=== PATIENT | male | born 1970 | race Two or more races ===

== ENCOUNTER 2018-05-19 12:02 | Inpatient (IN) | payer OTHER ==
[2018-05-19 15:01] VITALS: BMI 18.2
--- NOTE | 2018-05-19 16:49 | HP ---
COWS - Scale Bone or Joint Aches: 2= Severe Diffuse Aches CIWA Score - CIWA Score Nausea/Vomitin-Mild Nausea/No Vomiting Muscle Tremors: None Anxiety: 4-Mod. Anxious/Guarded Agitation: 1-Slight > Activity Paroxysmal Sweats: No Perspiration Orientation: 0-Oriented Tacttile Disturbances: 0-None Auditory Disturbances: 0-None Visual Disturbances: 0-None Headache: 0-None Present CIWA-Ar Total Score: 6 Admission ROS S - HPI Allergies/Adverse Reactions: Allergies Allergy/AdvReac Type Severity Reaction Status Date / Time No Known Allergies Allergy Verified 05/19/18 15:53 History of Present Illness: pt here requesting detox from etoh use reports 2 pints/day , latest use Tuesday , states woke up today, denies symptoms at this time . Pt changing story , after starting interview , upon ciwa evaluation scores zero denies all symptoms. Then states that he gets tremors and anxiety if he does not drink and requests to stay in detox . h/o seizure 6 mo ago . Reports etoh use since age 12 , 2 pints/day x 1 month , reports starts drinking around 6 p.m. Wt loss- 30 lbs in 1 year , not eating , usually drinking alcohol and using drugs " I eat out of the garbage can " . Previously at this facility 2 years ago , planning to go to long-term . cocaine - 100 $/day heroin - 10 bags/day ivdu in neck , latest use this morning MMTP - VIP x 1 year , daily dose 100 mg , latest dose today . tobacco : 1-2 cigarettes /day pmhx : hiv + dx 1988 (ST) , hep C ( IVDU ) - non compliant w/ meds , latest visit > 1 yr ago . pshx : appy psych : denies homeless , unemployed legal : denies - Ebola screening Have you traveled outside of the country in the last 21 days: No Have you had contact with anyone from an Ebola affected area: No Have you been sick,other than usual withdrawal symptoms: No Do you have a fever: No - Review of Systems Constitutional: No Symptoms Reported EENT: reports: Tearing, Other (reading glasses) Respiratory: reports: Cough, Other (claims he was coughing green stuff) Cardiac: reports: No Symptoms Reported GI: reports: Nausea : reports: Dysuria Musculoskeletal: reports: Back Pain Integumentary: reports: Other (traCK MURDOCK) Neuro: reports: Seizure Endocrine: reports: Other (borderline DM per pt) Hematology: reports: No Symptoms Reported Psychiatric: reports: Orientated x3, Agitated, Anxious Patient History - Patient Medical History Hx Anemia: No Hx Asthma: No Hx Chronic Obstructive Pulmonary Disease (COPD): No Hx Cardiac Disorders: No Hx Congestive Heart Failure: No Hx Hypertension: No Hx Hypercholesterolemia: No Hx Pacemaker: No HX Cerebrovascular Accident: No Hx Seizures: No Hx Dementia: No Hx Diabetes: No Hx Gastrointestinal Disorders: No Hx Liver Disease: No Hx Genitourinary Disorders: No Hx Sexually Transmitted Disorders: No Hx Renal Disease (ESRD): No Hx Thyroid Disease: No Hx Human Immunodeficiency Virus (HIV): Yes (1988 currently no med) Hx Hepatitis C: Yes Hx Depression: No Hx Suicide Attempt: No Hx Bipolar Disorder: No Hx Schizophrenia: No - Patient Surgical History Past Surgical History: Yes Hx Neurologic Surgery: No Hx Cataract Extraction: No Hx Cardiac Surgery: No Hx Lung Surgery: No Hx Breast Surgery: No Hx Breast Biopsy: No Hx Abdominal Surgery: No Hx Appendectomy: Yes (at age 7 yrs old.) Hx Cholecystectomy: No Hx Genitourinary Surgery: No Hx Section: No Hx Orthopedic Surgery: No Anesthesia Reaction: No - PPD History Previous Implant?: Yes Documented Results: Negative w/proof Implanted On Prior R Admission?: Yes Date: 03/07/16 Results: 0 mm - Smoking Cessation Smoking history: Former smoker Have you smoked in the past 12 months: Yes Aproximately how many cigarettes per day: 20 If you are a former smoker, when did you quit?: 6 mos. ago Cigars Per Day: 0 Hx Chewing Tobacco Use: No Initiated information on smoking cessation: No - Substances Abused Cocaine Route: Injection Frequency: Daily Amount used: $100 Age of first use: 12 Date of Last Use: 05/17/18 Heroin Route: Injection Frequency: Daily Amount used: 3-4 bags Age of first use: 13 Date of Last Use: 05/17/18 Alcohol-vodka Route: Oral Frequency: Daily Amount used: 2 pts. Age of first use: 12 Date of Last Use: 05/17/18 Family Disease History - Family Disease History Family Disease History: Diabetes: Grandparent, Heart Disease: Grandparent Admission Physical Exam BHS - Vital Signs Vital Signs: Vital Signs - 24 hr 05/19/18 14:57 Temperature 97 F L Pulse Rate 56 L Respiratory 18 Rate Blood Pressure 136/83 - Physical General Appearance: Yes: Anxious HEENTM: Yes: Hearing grossly Normal, Normal Voice, Pharynx Normal Respiratory: Yes: Chest Non-Tender, Lungs Clear, Normal Breath Sounds Neck: Yes: No masses,lesions,Nodules, Trachea in good position Breast: Yes: Breast Exam Deferred Cardiology: Yes: Regular Rhythm, Regular Rate, Bradycardia Abdominal: Yes: Normal Bowel Sounds, Flat Genitourinary: Yes: Dysuria Back: Yes: Normal Inspection Musculoskeletal: Yes: full range of Motion, Gait Steady Extremities: Yes: Normal Capillary Refill, Normal Inspection Neurological: Yes: Fully Oriented Integumentary: Yes: Dry, Warm, Track Murdock (dorsum of hands , neck , sahil calves) - Diagnostic (1) Alcohol dependence Current Visit: No Status: Chronic Qualifiers: Substance use status: uncomplicated Qualified Code(s): F10.20 - Alcohol dependence, uncomplicated (2) Cocaine dependence Current Visit: No Status: Chronic Qualifiers: Substance use status: uncomplicated Qualified Code(s): F14.20 - Cocaine dependence, uncomplicated (3) HIV (human immunodeficiency virus infection) Current Visit: No Status: Chronic Comment: patient was taking complara "not working" had genotype, follow up with infectious disease physician, currently not on any medication (4) Hepatitis C Current Visit: No Status: Chronic Qualifiers: Viral hepatitis chronicity: chronic Hepatic coma status: without hepatic coma Qualified Code(s): B18.2 - Chronic viral hepatitis C (5) Methadone maintenance therapy patient Current Visit: No Status: Chronic (6) Weight loss, non-intentional Current Visit: No Status: Chronic Comment: ensure BHS Breath Alcohol Content Breath Alcohol Content: 0 Urine Drug Screen - Results Drug Screen Negative: No Urine Drug Screen Results: CHANCE-Cocaine, OPI-Opiates, MTD-Methadone
[2018-05-19] MEDS ORDERED: MAGNESIUM CITRATE 300 ML BOTTLE PO PRN (16:55)
[2018-05-19] MEDS ORDERED: MAG HYDROX/AL HYDROX/SIMETH 30 ML UNIT-DOSE CUP PO PRN (16:55)
[2018-05-19] MEDS ORDERED: MAGNESIUM HYDROX 2400MG/30ML ORAL SUSPENSION 30 ML CUP PO PRN (16:55)
[2018-05-19] MEDS ORDERED: guaiFENesin/D-METHORPHAN HB 10 ML UNIT-DOSE CUPS PO PRN (16:55)
[2018-05-19] MEDS ORDERED: IBUPROFEN 400 MG TABLET (FP) PO PRN (16:55)
[2018-05-19] MEDS ORDERED: P-EPHED 60MG/TRIPROLIDI 2.5MG TABLET PO PRN (16:55)
[2018-05-19] MEDS ORDERED: MENTHOL/PHENOL 1 EACH UD MM PRN (16:55)
[2018-05-19] MEDS ORDERED: ACETAMINOPHEN 325 MG TABLET (FP) PO PRN (16:55)
[2018-05-19] MEDS: chlordiazePOXIDE HCL 10 MG CAPSULE PO PRN (17:50)
[2018-05-19] MEDS ORDERED: MELATONIN 5 MG TABLETS PO PRN (22:00)
[2018-05-19] MEDS: chlordiazePOXIDE HCL 25 MG CAPSULE PO SCH (22:24)
[2018-05-19] MEDS: THIAMINE HCL 100 MG TABLET (FP) PO SCH (22:24)
[2018-05-20] MEDS: chlordiazePOXIDE HCL 25 MG CAPSULE PO SCH ×3 (05:47→17:29)
[2018-05-20] MEDS ORDERED: METHADONE HCL 10 MG TABLET ONE (07:09)
[2018-05-20] MEDS ORDERED: METHADONE HCL 40 MG DISPERSABLE TABLET ONE (07:10)
[2018-05-20] MEDS ORDERED: METHADONE HCL 10 MG TABLET PO SCH (07:15)
[2018-05-20] MEDS: METHADONE 80 MG, METHADONE 20 MG PO SCH (07:20)
[2018-05-20] MEDS: PRENATAL VITAMINS W/ FOLIC ACID TABLET (FP) PO SCH (10:01)
[2018-05-20] MEDS ORDERED: ONDANSETRON *ODT* 4 MG TABLET SL PRN (10:18)
[2018-05-20] MEDS ORDERED: COLLOIDAL OATMEAL 1 BAR EACH TP PRN (10:18)
[2018-05-20 10:29] LABS: HEMATOCRIT 38.6 % (35.4-49); HEMOGLOBIN 12.1 GM/dL (11.7-16.9); MCH 27.7 pg (25.7-33.7); MCHC 31.3 g/dl (32.0-35.9); MEAN CELL VOLUME 88.4 fl (80-96); MEAN PLT VOLUME 9.4 fl (7.5-11.1); PLATELET COUNT 170 K/MM3 (134-434); RBC 4.37 M/mm3 (4.00-5.60); RDW 15.6 % (11.9-15.9); WHITE BLOOD COUNT 3.1 K/mm3 (4.0-10.0)
[2018-05-20 10:43] LABS: ALBUMIN 2.7 g/dl (3.4-5.0); ALK PHOS 213 U/L (45-117); ANION GAP 4 MMOL/L (8-16); BILIRUBIN,TOTAL 0.3 mg/dL (0.2-1); BLOOD UREA NITROGEN 10 mg/dL (7-18); CALCIUM 8.9 mg/dL (8.5-10.1); CHLORIDE 106 mmol/L (98-107); CO2 32 mmol/L (21-32); CREATININE 0.7 mg/dL (0.55-1.3); GLUCOSE,RANDOM 63 mg/dL (74-106); POTASSIUM 4.1 mmol/L (3.5-5.1); SGOT/AST 84 U/L (15-37); SGPT/ALT 63 U/L (13-61); SODIUM 141 mmol/L (136-145); TOT PROT 7.3 g/dl (6.4-8.2)
[2018-05-20 12:58] LABS: URINE APPEARANCE TURBID; URINE BILIRUBIN NEGATIVE (<2.0 mg/dL); URINE COLOR YELLOW; URINE GLUCOSE (UA) NEGATIVE (NEGATIVE); URINE KETONE NEGATIVE (NEGATIVE); URINE LEUK ESTERASE TRACE (NEGATIVE); URINE NITRITE NEGATIVE (NEGATIVE); URINE PROTEIN 1+ (NEGATIVE)
[2018-05-20 13:15] LABS: URINE BACTERIA RARE /hpf (NONE SEEN); URINE MUCUS FEW; YEAST MODERATE
[2018-05-20] MEDS: chlordiazePOXIDE HCL 10 MG CAPSULE PO PRN (13:21)
--- NOTE | 2018-05-20 15:16 | PN ---
[facility] CIWA - CIWA Score Nausea/Vomitin-Int. Nausea w/Dry Heave Muscle Tremors: 2 Anxiety: 3 Agitation: 3 Paroxysmal Sweats: 1-Minimal Palms Moist Orientation: 0-Oriented Tacttile Disturbances: 2-Mild Itch/Numbness/Burn Auditory Disturbances: 0-None Visual Disturbances: 0-None Headache: 0-None Present CIWA-Ar Total Score: 15 S Progress Note (SOAP) Subjective: c/o of nausea and vomiting, dry itchy skin, interrupted sleep Objective: 05/20/18 15:14 Vital Signs Temperature 98.8 F 05/20/18 14:01 Pulse Rate 61 05/20/18 14:01 Respiratory Rate 18 05/20/18 14:01 Blood Pressure 114/73 05/20/18 14:01 O2 Sat by Pulse Oximetry (%) Laboratory Last Values WBC 3.1 K/mm3 (4.0-10.0) L 05/20/18 08:00 RBC 4.37 M/mm3 (4.00-5.60) 05/20/18 08:00 Hgb 12.1 GM/dL (11.7-16.9) 05/20/18 08:00 Hct 38.6 % (35.4-49) 05/20/18 08:00 MCV 88.4 fl (80-96) 05/20/18 08:00 MCH 27.7 pg (25.7-33.7) 05/20/18 08:00 MCHC 31.3 g/dl (32.0-35.9) L 05/20/18 08:00 RDW 15.6 % (11.9-15.9) 05/20/18 08:00 Plt Count 170 K/MM3 (134-434) 05/20/18 08:00 MPV 9.4 fl (7.5-11.1) 05/20/18 08:00 Sodium 141 mmol/L (136-145) 05/20/18 08:00 Potassium 4.1 mmol/L (3.5-5.1) 05/20/18 08:00 Chloride 106 mmol/L (98-107) 05/20/18 08:00 Carbon Dioxide 32 mmol/L (21-32) 05/20/18 08:00 Anion Gap 4 MMOL/L (8-16) L 05/20/18 08:00 BUN 10 mg/dL (7-18) 05/20/18 08:00 Creatinine 0.7 mg/dL (0.55-1.3) 05/20/18 08:00 Creat Clearance w eGFR > 60 (>60) 05/20/18 08:00 Random Glucose 63 mg/dL (74-106) L 05/20/18 08:00 Calcium 8.9 mg/dL (8.5-10.1) 05/20/18 08:00 Total Bilirubin 0.3 mg/dL (0.2-1) 05/20/18 08:00 AST 84 U/L (15-37) H 05/20/18 08:00 ALT 63 U/L (13-61) H 05/20/18 08:00 Alkaline Phosphatase 213 U/L (45-117) H 05/20/18 08:00 Total Protein 7.3 g/dl (6.4-8.2) 05/20/18 08:00 Albumin 2.7 g/dl (3.4-5.0) L 05/20/18 08:00 Urine Color Yellow 05/20/18 09:30 Urine Appearance Turbid 05/20/18 09:30 Urine pH 5.0 (5.0-8.0) 05/20/18 09:[address] 1.028 (1.010-1.035) 05/20/18 09:30 Urine Protein 1+ (NEGATIVE) H 05/20/18 09:30 Urine Glucose (UA) Negative (NEGATIVE) 05/20/18 09:30 Urine Ketones Negative (NEGATIVE) 05/20/18 09:30 Urine Blood Negative (NEGATIVE) 05/20/18 09:30 Urine Nitrite Negative (NEGATIVE) 05/20/18 09:30 Urine Bilirubin Negative (<2.0 mg/dL) 05/20/18 09:30 Urine Urobilinogen 2.0 mg/dL (0.2-1.0) 05/20/18 09:30 Ur Leukocyte Esterase Trace (NEGATIVE) 05/20/18 09:30 Urine WBC (Auto) 13 /hpf (3-5) 05/20/18 09:30 Urine RBC (Auto) 4 /hpf (0-3) 05/20/18 09:30 Urine Bacteria Rare /hpf (NONE SEEN) 05/20/18 09:30 Urine Mucus Few 05/20/18 09:30 Urine Yeast Moderate 05/20/18 09:30 RPR Titer Nonreactive (NONREACTIVE) 05/20/18 08:00 d/c acetaminophen Aox3 no distress anxious no adventitious breath sounds skin intact, dry full ROM ambulating in the unit increase PO fluids zofran PRN continue detox continue to monitor
[2018-05-20] MEDS: chlordiazePOXIDE 5 MG CAPSULE PO SCH (22:15)
[2018-05-20] MEDS: TOLNAFTATE 1% CREAM 15 GM TUBE TP SCH (22:15)
[2018-05-20] MEDS: THIAMINE HCL 100 MG TABLET (FP) PO SCH (22:15)
[2018-05-21] MEDS ORDERED: METHADONE HCL 40 MG DISPERSABLE TABLET ONE (04:59)
[2018-05-21] MEDS ORDERED: METHADONE HCL 10 MG TABLET ONE (04:59)
[2018-05-21] MEDS: chlordiazePOXIDE 5 MG CAPSULE PO SCH ×3 (05:35→17:30)
[2018-05-21] MEDS: METHADONE 80 MG, METHADONE 20 MG PO SCH (05:35)
[2018-05-21] MEDS: TOLNAFTATE 1% CREAM 15 GM TUBE TP SCH ×2 (10:09→22:54)
[2018-05-21] MEDS: PRENATAL VITAMINS W/ FOLIC ACID TABLET (FP) PO SCH (10:09)
--- NOTE | 2018-05-21 15:43 | PN ---
[facility] CIWA - CIWA Score Nausea/Vomitin Muscle Tremors: 3 Anxiety: 3 Agitation: 3 Paroxysmal Sweats: 3 Orientation: 0-Oriented Tacttile Disturbances: 0-None Auditory Disturbances: 0-None Visual Disturbances: 0-None Headache: 1-Very Mild CIWA-Ar Total Score: 15 [facility] Progress Note (SOAP) Subjective: Tremor, sweating, N/V, interrupted sleep Objective: 05/21/18 15:36 Last Vital Signs Temp Pulse Resp BP Pulse Ox 96.6 F L 63 18 122/71 05/21/18 14:12 05/21/18 14:12 05/21/18 14:12 05/21/18 14:12 Laboratory Tests 05/20/18 05/20/18 05/20/18 08:00 08:00 08:00 WBC 3.1 L RBC 4.37 Hgb 12.1 Hct 38.6 MCV 88.4 MCH 27.7 MCHC 31.3 L RDW 15.6 Plt Count 170 MPV 9.4 Sodium 141 Potassium 4.1 Chloride 106 Carbon Dioxide 32 Anion Gap 4 L BUN 10 Creatinine 0.7 Creat Clearance w eGFR > 60 Random Glucose 63 L Calcium 8.9 Total Bilirubin 0.3 AST 84 H ALT 63 H Alkaline Phosphatase 213 H Total Protein 7.3 Albumin 2.7 L Urine Color Urine Appearance Urine pH Ur Specific [place] Urine Protein Urine Glucose (UA) Urine Ketones Urine Blood Urine Nitrite Urine Bilirubin Urine Urobilinogen Ur Leukocyte Esterase Urine WBC (Auto) Urine RBC (Auto) Urine Bacteria Urine Mucus Urine Yeast RPR Titer Nonreactive 05/20/18 09:30 WBC RBC Hgb Hct MCV MCH MCHC RDW Plt Count MPV Sodium Potassium Chloride Carbon Dioxide Anion Gap BUN Creatinine Creat Clearance w eGFR Random Glucose Calcium Total Bilirubin AST ALT Alkaline Phosphatase Total Protein Albumin Urine Color Yellow Urine Appearance Turbid Urine pH 5.0 Ur Specific [place] 1.028 Urine Protein 1+ H Urine Glucose (UA) Negative Urine Ketones Negative Urine Blood Negative Urine Nitrite Negative Urine Bilirubin Negative Urine Urobilinogen 2.0 Ur Leukocyte Esterase Trace Urine WBC (Auto) 13 Urine RBC (Auto) 4 Urine Bacteria Rare Urine Mucus Few Urine Yeast Moderate RPR Titer Labs reviewed: UA abnormal plus yeast Assessment: 05/21/18 15:38 Withdrawal symptoms Noted with abnormal UA and yeast Plan: Continue detox Abnormal UA/Yeast: encouraged PO water intake, diflucan 150mg PO x 1 dose, repeat UA
[2018-05-21] MEDS ORDERED: FLUCONAZOLE 50 MG TABLET PO ONE (15:44)
[2018-05-21] MEDS ORDERED: FLUCONAZOLE 100 MG TABLET (UD) PO ONE (16:15)
[2018-05-21] MEDS: THIAMINE HCL 100 MG TABLET (FP) PO SCH (22:27)
[2018-05-21] MEDS: chlordiazePOXIDE HCL 10 MG CAPSULE PO SCH (22:27)
[2018-05-22] MEDS ORDERED: METHADONE HCL 10 MG TABLET ONE (04:43)
[2018-05-22] MEDS ORDERED: METHADONE HCL 40 MG DISPERSABLE TABLET ONE (04:44)
[2018-05-22] MEDS: chlordiazePOXIDE HCL 10 MG CAPSULE PO SCH ×3 (05:10→17:29)
[2018-05-22] MEDS: METHADONE 80 MG, METHADONE 20 MG PO SCH (05:10)
[2018-05-22] MEDS: PRENATAL VITAMINS W/ FOLIC ACID TABLET (FP) PO SCH (10:04)
[2018-05-22] MEDS: TOLNAFTATE 1% CREAM 15 GM TUBE TP SCH ×2 (10:04→22:00)
--- NOTE | 2018-05-22 10:19 | PN ---
BHS Progress Note (SOAP) Subjective: Sweating, chills, nausea, interrupted sleep. Patient for discharge today. As per patient, he is still having withdrawal symptoms and feels he would go out and use drugs if he is discharged today. Objective: 05/22/18 10:16 Last Vital Signs Temp Pulse Resp BP Pulse Ox 97.4 F L 73 16 122/79 05/22/18 09:09 05/22/18 09:09 05/22/18 09:09 05/22/18 09:09 Laboratory Tests 05/20/18 05/20/18 05/20/18 08:00 08:00 08:00 WBC 3.1 L RBC 4.37 Hgb 12.1 Hct 38.6 MCV 88.4 MCH 27.7 MCHC 31.3 L RDW 15.6 Plt Count 170 MPV 9.4 Sodium 141 Potassium 4.1 Chloride 106 Carbon Dioxide 32 Anion Gap 4 L BUN 10 Creatinine 0.7 Creat Clearance w eGFR > 60 Random Glucose 63 L Calcium 8.9 Total Bilirubin 0.3 AST 84 H ALT 63 H Alkaline Phosphatase 213 H Total Protein 7.3 Albumin 2.7 L Urine Color Urine Appearance Urine pH Ur Specific [place] Urine Protein Urine Glucose (UA) Urine Ketones Urine Blood Urine Nitrite Urine Bilirubin Urine Urobilinogen Ur Leukocyte Esterase Urine WBC (Auto) Urine RBC (Auto) Urine Bacteria Urine Mucus Urine Yeast RPR Titer Nonreactive 05/20/18 09:30 WBC RBC Hgb Hct MCV MCH MCHC RDW Plt Count MPV Sodium Potassium Chloride Carbon Dioxide Anion Gap BUN Creatinine Creat Clearance w eGFR Random Glucose Calcium Total Bilirubin AST ALT Alkaline Phosphatase Total Protein Albumin Urine Color Yellow Urine Appearance Turbid Urine pH 5.0 Ur Specific [place] 1.028 Urine Protein 1+ H Urine Glucose (UA) Negative Urine Ketones Negative Urine Blood Negative Urine Nitrite Negative Urine Bilirubin Negative Urine Urobilinogen 2.0 Ur Leukocyte Esterase Trace Urine WBC (Auto) 13 Urine RBC (Auto) 4 Urine Bacteria Rare Urine Mucus Few Urine Yeast Moderate RPR Titer Labs reviewed: abnormal UA (already ordered for repeat), treated with diflucan for yeast UTI Assessment: 05/22/18 10:16 Withdrawal symptoms Noted with abnormal UA Plan: Continue detox Abnormal UA: encouraged PO water intake, await repeated UA (patient encouraged to provide specimen) Discharge rescheduled for tomorrow
[2018-05-22 14:29] LABS: URINE APPEARANCE CLEAR; URINE BILIRUBIN NEGATIVE (<2.0 mg/dL); URINE COLOR STRAW; URINE GLUCOSE (UA) NEGATIVE (NEGATIVE); URINE KETONE NEGATIVE (NEGATIVE); URINE LEUK ESTERASE NEGATIVE (NEGATIVE); URINE NITRITE NEGATIVE (NEGATIVE); URINE PROTEIN NEGATIVE (NEGATIVE); URINE UROBILINOGEN NEGATIVE mg/dL (0.2-1.0)
[2018-05-22] MEDS: chlordiazePOXIDE HCL 10 MG CAPSULE PO PRN (14:53)
[2018-05-22] MEDS: THIAMINE HCL 100 MG TABLET (FP) PO SCH (22:01)
[2018-05-23] MEDS ORDERED: METHADONE HCL 10 MG TABLET ONE (04:05)
[2018-05-23] MEDS ORDERED: METHADONE HCL 40 MG DISPERSABLE TABLET ONE (04:06)
[2018-05-23] MEDS: METHADONE 80 MG, METHADONE 20 MG PO SCH (05:28)
[2018-05-23 09:06] VITALS: PULSE 64
[2018-05-23] MEDS: PRENATAL VITAMINS W/ FOLIC ACID TABLET (FP) PO SCH (10:05)
--- NOTE | 2018-05-23 11:04 | DS ---
[facility] Detox Discharge Summary Admission Date: 05/19/18 Discharge Date: 05/23/18 - History Present History: Alcohol Dependence, Cocaine Dependence, Opioid Dependence, MMTP Additional Comments: Patient awaiting bed in [facility]. If no bed available today, patient will be discharged to outpatient program. Pertinent Past History: HIV Alcohol dependence Opioid dependence on agonist Cocaine dependence Nicotine dependence - Physical Exam Results Vital Signs: Vital Signs Temperature 99 F 05/23/18 09:05 Pulse Rate 64 05/23/18 09:05 Respiratory Rate 20 05/23/18 09:05 Blood Pressure 99/64 05/23/18 09:05 O2 Sat by Pulse Oximetry (%) Pertinent Admission Physical Exam Findings: Withdrawal symptoms Laboratory Tests 05/20/18 05/20/18 05/20/18 08:00 08:00 08:00 WBC 3.1 L RBC 4.37 Hgb 12.1 Hct 38.6 MCV 88.4 MCH 27.7 MCHC 31.3 L RDW 15.6 Plt Count 170 MPV 9.4 Sodium 141 Potassium 4.1 Chloride 106 Carbon Dioxide 32 Anion Gap 4 L BUN 10 Creatinine 0.7 Creat Clearance w eGFR > 60 Random Glucose 63 L Calcium 8.9 Total Bilirubin 0.3 AST 84 H ALT 63 H Alkaline Phosphatase 213 H Total Protein 7.3 Albumin 2.7 L Urine Color Urine Appearance Urine pH Ur Specific [place] Urine Protein Urine Glucose (UA) Urine Ketones Urine Blood Urine Nitrite Urine Bilirubin Urine Urobilinogen Ur Leukocyte Esterase Urine WBC (Auto) Urine RBC (Auto) Urine Bacteria Urine Mucus Urine Yeast RPR Titer Nonreactive 05/20/18 05/22/18 09:30 11:10 WBC RBC Hgb Hct MCV MCH MCHC RDW Plt Count MPV Sodium Potassium Chloride Carbon Dioxide Anion Gap BUN Creatinine Creat Clearance w eGFR Random Glucose Calcium Total Bilirubin AST ALT Alkaline Phosphatase Total Protein Albumin Urine Color Yellow Straw Urine Appearance Turbid Clear Urine pH 5.0 6.0 Ur Specific [place] 1.028 1.006 L Urine Protein 1+ H Negative Urine Glucose (UA) Negative Negative Urine Ketones Negative Negative Urine Blood Negative Negative Urine Nitrite Negative Negative Urine Bilirubin Negative Negative Urine Urobilinogen 2.0 Negative Ur Leukocyte Esterase Trace Negative Urine WBC (Auto) 13 Urine RBC (Auto) 4 Urine Bacteria Rare Urine Mucus Few Urine Yeast Moderate RPR Titer Labs reviewed - Treatment Hospital Course: Detox Protocol Followed, Detoxed Safely, Responded well, Discharged Condition Good, Rehab Referral Accepted - Medication Discharge Medications: Ambulatory Orders NK [No Known Home Medication] 04/07/16 - Diagnosis (1) Yeast UTI Current Visit: Yes Status: Acute (2) Abnormal finding on urinalysis Current Visit: Yes Status: Resolved (3) Opioid dependence on agonist therapy Current Visit: Yes Status: Acute (4) Nicotine dependence Current Visit: Yes Status: Chronic (5) Alcohol dependence with uncomplicated withdrawal Current Visit: Yes Status: Acute (6) Cocaine dependence Current Visit: Yes Status: Chronic Qualifiers: Substance use status: uncomplicated Qualified Code(s): F14.20 - Cocaine dependence, uncomplicated (7) HIV (human immunodeficiency virus infection) Current Visit: Yes Status: Chronic - AMA Did Patient Leave Against Medical Advice: No (F/U with PCP within 1-2 weeks after discharge)
[2018-05-23] MEDS: TOLNAFTATE 1% CREAM 15 GM TUBE TP SCH (11:26)
[2018-05-23 13:04] VITALS: BP 111/70; TEMP 97.2
== END 2018-05-23 14:00 | disposition other institution (70) | DRG 773 ==
LOC: YASAS 12:02 → Y3N 17:05
PROC: HZ2ZZZZ Detoxification Services for Substance Abuse Treatment (ICD-10-PCS; principal; 2018-05-19)
DX: F10.230 Alcohol dependence with withdrawal, uncomplicated (principal); F14.20 Cocaine dependence, uncomplicated; F11.20 Opioid dependence, uncomplicated; F17.210 Nicotine dependence, cigarettes, uncomplicated; Z21 Asymptomatic human immunodeficiency virus [HIV] infection status; B18.2 Chronic viral hepatitis C; B37.49 Other urogenital candidiasis; B35.3 Tinea pedis; R63.4 Abnormal weight loss; Z68.1 Body mass index [BMI] 19.9 or less, adult
CPT/HCPCS: 36415; 80053; 81003; 81015; 85027; 86593

== ENCOUNTER 2018-05-23 14:16 | Inpatient (IN) | payer OTHER ==
[2018-05-23] MEDS ORDERED: LOPERAMIDE HCL 2 MG CAPSULE PO PRN (14:30)
[2018-05-23] MEDS ORDERED: MAGNESIUM HYDROX 2400MG/30ML ORAL SUSPENSION 30 ML CUP PO PRN (14:30)
[2018-05-23] MEDS ORDERED: P-EPHED 60MG/TRIPROLIDI 2.5MG TABLET PO PRN (14:30)
[2018-05-23] MEDS ORDERED: MAGNESIUM CITRATE 300 ML BOTTLE PO PRN (14:30)
[2018-05-23] MEDS ORDERED: guaiFENesin/D-METHORPHAN HB 10 ML UNIT-DOSE CUPS PO PRN (14:30)
[2018-05-23] MEDS ORDERED: IBUPROFEN 400 MG TABLET (FP) PO PRN (14:30)
[2018-05-23] MEDS ORDERED: hydrOXYzine PAMOATE 25 MG CAPSULE (FP) PO PRN (14:30)
[2018-05-23] MEDS ORDERED: ACETAMINOPHEN 325 MG TABLET (FP) PO PRN (14:30)
[2018-05-23] MEDS ORDERED: MENTHOL/PHENOL 1 EACH UD MM PRN (14:30)
[2018-05-23] MEDS: COLLOIDAL OATMEAL 1 BAR EACH TP PRN (17:34)
[2018-05-23] MEDS ORDERED: MELATONIN 5 MG TABLETS PO PRN (22:00)
[2018-05-23] MEDS: THIAMINE HCL 100 MG TABLET (FP) PO SCH (22:02)
[2018-05-24] MEDS ORDERED: METHADONE HCL 40 MG DISPERSABLE TABLET ONE (04:07)
[2018-05-24] MEDS ORDERED: METHADONE HCL 10 MG TABLET ONE (04:07)
[2018-05-24] MEDS ORDERED: METHADONE HCL 10 MG TABLET PO SCH (06:00)
--- NOTE | 2018-05-24 06:27 | HP ---
Psychiatrist Admission - Data Date of interview: 05/24/18 Admission source: 3N Identifying data: This is the second [facility] admission for this 47 years old single male, father of a 21 years old son, unemployed supported on [employer] funds, domiciled([facility]-subsidized [facility] setting ) Medical History: Significant for HIV infection since 1988 (non adherent to ART meds), hepatitis C, and history of appendectomy at age 7. Patient is on methadone 100 mg daily. Smokes 2 cigarettes daily Psychiatric History: Patient denies history of previous psychiatric treatment. However reports that, as part of admission process, he had to see a psychiatrist at his ID clinic. Physical/Sexual Abuse/Trauma History: Patient denies history of emotional, physical or sexual abuse as well as DV relationship. No service Additional Comment: Reports history of multiple previous arrests including 2 felony convictions. Denies being on parole/probation at present. No active case Vital Signs: Vital Signs - 24 hr 05/23/18 05/24/18 14:30 01:26 Temperature 97.7 F Pulse Rate 62 Respiratory 18 18 Rate Blood Pressure 100/70 Allergies/Adverse Reactions: Allergies Allergy/AdvReac Type Severity Reaction Status Date / Time No Known Allergies Allergy Verified 05/23/18 14:40 Date of last physical exam: 05/19/18 Concur with the findings of this exam: Yes - Substance Abuse/Tx History Hx Alcohol Use: Yes Hx Substance Use: Yes (Currently attends [facility]) Substance Use Type: Alcohol (Started drinking alcohol at age 12, consumes 2 pints of vodka daily. Last drank on 05/17/18), Cocaine (Started using cocaine at age 12, consumes $10 worth daily. Last used on 05/17/18), Heroin (Started using heroin at age 13, consumes 3-4 bags daily. Last used on 05/17/18) Hx Substance Use Treatment: Yes (4 previous inpt detox & one inpt rehab admissions @ [facility]) Mental Status Exam - Mental Status Exam Alert and Oriented to: Time, Place, Person Cognitive Function: Fair Patient Appearance: Well Groomed Mood: Hopeful, Euthymic Affect: Blunted Patient Behavior: Cooperative Speech Pattern: Clear Voice Loudness: Normal Thought Process: Intact Thought Disorder: Not Present Hallucinations: Denies Suicidal Ideation: Denies Homicidal Ideation: Denies Insight/Judgement: Fair Sleep: Fair Appetite: Fair Muscle strength/Tone: Normal Gait/Station: Normal Psychiatric Findings - Problem List ([place] 1, 2,3) (1) Alcohol dependence Current Visit: Yes Status: Acute (2) Cocaine dependence Current Visit: Yes Status: Acute (3) Opioid dependence on agonist therapy Current Visit: Yes Status: Chronic (4) Nicotine dependence Current Visit: No Status: Chronic (5) HIV (human immunodeficiency virus infection) Current Visit: No Status: Chronic Comment: patient was taking complara "not working" had genotype, follow up with infectious disease physician, currently not on any medication (6) Hepatitis C Current Visit: No Status: Chronic Qualifiers: Viral hepatitis chronicity: chronic Hepatic coma status: without hepatic coma Qualified Code(s): B18.2 - Chronic viral hepatitis C - Initial Treatment Plan Initial Treatment Plan: Monitor progress
[2018-05-24] MEDS: METHADONE 80 MG, METHADONE 20 MG PO SCH (06:29)
[2018-05-24] MEDS: PRENATAL VITAMINS W/ FOLIC ACID TABLET (FP) PO SCH (10:36)
--- NOTE | 2018-05-24 12:22 | HP ---
[facility] Rehab Assess/Revision - Admission History [facility] Date of Admission to Rehab: 05/23/18 - Vital signs Vital Signs: Vital Signs Period Temp Pulse Resp BP Sys/Diehl Pulse Ox Last 24 Hr 97.7 F-98.2 F 62-74 18-18 100-115/70-77 - Findings Detox History & Physical reviewed: Yes Concur with findings: Yes Inpatient Rehab Admission - Initial Determination Are CD services needed?: Yes Free of communicable disease: Yes Not in need of hospitalization: Yes - Rehab Admission Criteria Patient is meeting Inpatient Rehab admission criteria:: Yes
[2018-05-24] MEDS: TOLNAFTATE 1% CREAM 15 GM TUBE TP SCH ×2 (14:40→21:56)
[2018-05-24] MEDS: MAG HYDROX/AL HYDROX/SIMETH 30 ML UNIT-DOSE CUP PO PRN (18:52)
[2018-05-24] MEDS: THIAMINE HCL 100 MG TABLET (FP) PO SCH (21:56)
[2018-05-25] MEDS ORDERED: METHADONE HCL 10 MG TABLET ONE (04:07)
[2018-05-25] MEDS ORDERED: METHADONE HCL 40 MG DISPERSABLE TABLET ONE (04:07)
[2018-05-25] MEDS: METHADONE 80 MG, METHADONE 20 MG PO SCH (06:03)
[2018-05-25] MEDS: PRENATAL VITAMINS W/ FOLIC ACID TABLET (FP) PO SCH (11:03)
[2018-05-25] MEDS: TOLNAFTATE 1% CREAM 15 GM TUBE TP SCH ×2 (11:03→21:04)
[2018-05-25] MEDS: THIAMINE HCL 100 MG TABLET (FP) PO SCH (21:02)
[2018-05-26] MEDS ORDERED: METHADONE HCL 10 MG TABLET ONE (03:17)
[2018-05-26] MEDS ORDERED: METHADONE HCL 40 MG DISPERSABLE TABLET ONE (03:18)
[2018-05-26] MEDS: METHADONE 80 MG, METHADONE 20 MG PO SCH (05:58)
[2018-05-26] MEDS: PRENATAL VITAMINS W/ FOLIC ACID TABLET (FP) PO SCH (10:00)
[2018-05-26] MEDS: TOLNAFTATE 1% CREAM 15 GM TUBE TP SCH ×2 (10:00→21:03)
[2018-05-26] MEDS: THIAMINE HCL 100 MG TABLET (FP) PO SCH (21:04)
[2018-05-27] MEDS ORDERED: METHADONE HCL 10 MG TABLET ONE (05:02)
[2018-05-27] MEDS ORDERED: METHADONE HCL 40 MG DISPERSABLE TABLET ONE (05:02)
[2018-05-27] MEDS: METHADONE 80 MG, METHADONE 20 MG PO SCH (06:14)
[2018-05-27] MEDS: PRENATAL VITAMINS W/ FOLIC ACID TABLET (FP) PO SCH (09:23)
[2018-05-27] MEDS: TOLNAFTATE 1% CREAM 15 GM TUBE TP SCH ×2 (09:23→21:51)
[2018-05-27] MEDS: THIAMINE HCL 100 MG TABLET (FP) PO SCH (21:50)
[2018-05-28] MEDS ORDERED: METHADONE HCL 10 MG TABLET ONE (02:23)
[2018-05-28] MEDS ORDERED: METHADONE HCL 40 MG DISPERSABLE TABLET ONE (02:23)
[2018-05-28] MEDS: METHADONE 80 MG, METHADONE 20 MG PO SCH (06:17)
[2018-05-28] MEDS: PRENATAL VITAMINS W/ FOLIC ACID TABLET (FP) PO SCH (09:27)
[2018-05-28] MEDS: TOLNAFTATE 1% CREAM 15 GM TUBE TP SCH ×2 (09:27→21:03)
[2018-05-28] MEDS: COLLOIDAL OATMEAL 1 BAR EACH TP PRN (10:16)
[2018-05-28] MEDS: THIAMINE HCL 100 MG TABLET (FP) PO SCH (21:03)
[2018-05-29] MEDS ORDERED: METHADONE HCL 10 MG TABLET ONE (03:58)
[2018-05-29] MEDS ORDERED: METHADONE HCL 40 MG DISPERSABLE TABLET ONE (03:59)
[2018-05-29] MEDS: METHADONE 80 MG, METHADONE 20 MG PO SCH (06:03)
[2018-05-29] MEDS: PRENATAL VITAMINS W/ FOLIC ACID TABLET (FP) PO SCH (09:51)
[2018-05-29] MEDS: TOLNAFTATE 1% CREAM 15 GM TUBE TP SCH ×2 (09:51→21:01)
[2018-05-29] MEDS: MAG HYDROX/AL HYDROX/SIMETH 30 ML UNIT-DOSE CUP PO PRN (14:59)
[2018-05-29] MEDS: THIAMINE HCL 100 MG TABLET (FP) PO SCH (21:01)
[2018-05-30] MEDS ORDERED: METHADONE HCL 40 MG DISPERSABLE TABLET ONE (04:07)
[2018-05-30] MEDS ORDERED: METHADONE HCL 10 MG TABLET ONE (04:07)
[2018-05-30] MEDS: METHADONE 80 MG, METHADONE 20 MG PO SCH (06:07)
[2018-05-30] MEDS: PRENATAL VITAMINS W/ FOLIC ACID TABLET (FP) PO SCH (10:00)
[2018-05-30] MEDS: TOLNAFTATE 1% CREAM 15 GM TUBE TP SCH ×2 (10:00→21:03)
[2018-05-30] MEDS: THIAMINE HCL 100 MG TABLET (FP) PO SCH (21:03)
[2018-05-31] MEDS ORDERED: METHADONE HCL 40 MG DISPERSABLE TABLET ONE (03:55)
[2018-05-31] MEDS ORDERED: METHADONE HCL 10 MG TABLET ONE (03:55)
[2018-05-31] MEDS: METHADONE 80 MG, METHADONE 20 MG PO SCH (06:11)
[2018-05-31] MEDS: PRENATAL VITAMINS W/ FOLIC ACID TABLET (FP) PO SCH (09:45)
[2018-05-31] MEDS: TOLNAFTATE 1% CREAM 15 GM TUBE TP SCH ×2 (09:45→21:07)
[2018-05-31] MEDS: THIAMINE HCL 100 MG TABLET (FP) PO SCH (21:07)
[2018-06-01] MEDS ORDERED: METHADONE HCL 10 MG TABLET ONE (04:04)
[2018-06-01] MEDS ORDERED: METHADONE HCL 40 MG DISPERSABLE TABLET ONE (04:04)
[2018-06-01] MEDS: METHADONE 80 MG, METHADONE 20 MG PO SCH (06:03)
[2018-06-01] MEDS: PRENATAL VITAMINS W/ FOLIC ACID TABLET (FP) PO SCH (09:57)
[2018-06-01] MEDS: TOLNAFTATE 1% CREAM 15 GM TUBE TP SCH ×2 (09:58→21:06)
[2018-06-01] MEDS: THIAMINE HCL 100 MG TABLET (FP) PO SCH (21:05)
[2018-06-02] MEDS ORDERED: METHADONE HCL 40 MG DISPERSABLE TABLET ONE (05:13)
[2018-06-02] MEDS ORDERED: METHADONE HCL 10 MG TABLET ONE (05:13)
[2018-06-02] MEDS: METHADONE 80 MG, METHADONE 20 MG PO SCH (06:09)
[2018-06-02] MEDS: TOLNAFTATE 1% CREAM 15 GM TUBE TP SCH ×2 (09:37→21:01)
[2018-06-02] MEDS: PRENATAL VITAMINS W/ FOLIC ACID TABLET (FP) PO SCH (09:37)
[2018-06-02] MEDS: COLLOIDAL OATMEAL 1 BAR EACH TP PRN (09:38)
[2018-06-02] MEDS: THIAMINE HCL 100 MG TABLET (FP) PO SCH (21:01)
[2018-06-03] MEDS ORDERED: METHADONE HCL 10 MG TABLET ONE (04:55)
[2018-06-03] MEDS ORDERED: METHADONE HCL 40 MG DISPERSABLE TABLET ONE (04:55)
[2018-06-03] MEDS: METHADONE 80 MG, METHADONE 20 MG PO SCH (06:07)
[2018-06-03] MEDS: PRENATAL VITAMINS W/ FOLIC ACID TABLET (FP) PO SCH (09:41)
[2018-06-03] MEDS: TOLNAFTATE 1% CREAM 15 GM TUBE TP SCH ×2 (09:42→21:01)
[2018-06-03] MEDS: THIAMINE HCL 100 MG TABLET (FP) PO SCH (21:01)
[2018-06-04] MEDS ORDERED: METHADONE HCL 40 MG DISPERSABLE TABLET ONE (03:11)
[2018-06-04] MEDS ORDERED: METHADONE HCL 10 MG TABLET ONE (03:11)
[2018-06-04] MEDS: METHADONE 80 MG, METHADONE 20 MG PO SCH (06:05)
[2018-06-04] MEDS: PRENATAL VITAMINS W/ FOLIC ACID TABLET (FP) PO SCH (09:22)
[2018-06-04] MEDS: TOLNAFTATE 1% CREAM 15 GM TUBE TP SCH ×2 (09:23→20:59)
[2018-06-04] MEDS: THIAMINE HCL 100 MG TABLET (FP) PO SCH (20:59)
[2018-06-05] MEDS ORDERED: METHADONE HCL 10 MG TABLET PO SCH (06:00)
[2018-06-05] MEDS ORDERED: METHADONE HCL 10 MG TABLET ONE (06:09)
[2018-06-05] MEDS ORDERED: METHADONE HCL 40 MG DISPERSABLE TABLET ONE (06:09)
[2018-06-05] MEDS: METHADONE 80 MG, METHADONE 20 MG PO SCH (06:16)
[2018-06-05 06:48] VITALS: TEMP 98.8
[2018-06-05] MEDS: PRENATAL VITAMINS W/ FOLIC ACID TABLET (FP) PO SCH (09:59)
[2018-06-05] MEDS: TOLNAFTATE 1% CREAM 15 GM TUBE TP SCH ×2 (09:59→21:00)
[2018-06-05] MEDS: THIAMINE HCL 100 MG TABLET (FP) PO SCH (21:00)
[2018-06-06] MEDS ORDERED: METHADONE HCL 10 MG TABLET ONE (04:08)
[2018-06-06] MEDS ORDERED: METHADONE HCL 40 MG DISPERSABLE TABLET ONE (04:08)
[2018-06-06] MEDS: METHADONE 80 MG, METHADONE 20 MG PO SCH (06:01)
[2018-06-06 06:49] VITALS: BP 116/73; PULSE 62
--- NOTE | 2018-06-06 09:41 | PN ---
Psychiatric Progress Note Vital Signs: Vital Signs Period Temp Pulse Resp BP Sys/Diehl Pulse Ox Last 24 Hr 98.8 F 62 16- 116/73 Date of Session: 06/06/18 Chief Complaint:: Discharge Note HPI: Patient addressing Alcohol and Cocaine Dependence comorbid with Opioid Dependence on Agonist therapy, Nicotine Dependence ROS: HIV, Hep C were medically managed Current Medications: Active Medications Generic Name Dose Route Start Last Admin Trade Name Freq PRN Reason Stop Dose Admin Acetaminophen 650 mg 05/23/18 14:30 Tylenol - PO Q4H PRN FEVER Al Hydroxide/Mg Hydroxide 30 ml 05/23/18 14:30 05/29/18 14:59 Mylanta Oral Suspension - PO 30 ml Q6H PRN Administration DYSPEPSIA Colloidal Oatmeal 1 applic 05/23/18 15:12 06/02/18 09:38 Aveeno Soap - TP 1 applic DAILY PRN Administration HYGEINE Eucalyptus/Menthol/Phenol/Sorbitol 1 each 05/23/18 14:30 Cepastat Lozenge - MM Q4H PRN SORE THROAT Guaifenesin 10 ml 05/23/18 14:30 Robitussin Dm - PO Q6H PRN COUGH Hydroxyzine Pamoate 25 mg 05/23/18 14:30 Vistaril - PO Q4H PRN AGITATION Ibuprofen 400 mg 05/23/18 14:30 Motrin - PO Q6H PRN Pain Level 4-6 Loperamide HCl 4 mg 05/23/18 14:30 Imodium - PO Q6H PRN DIARRHEA Magnesium Citrate 300 ml 05/23/18 14:30 Citroma - PO Q48H PRN CONSTIPATION Magnesium Hydroxide 30 ml 05/23/18 14:30 Milk Of Magnesia - PO DAILY PRN CONSTIPATION Melatonin 5 mg 05/23/18 22:00 Melatonin PO HS PRN INSOMNIA Methadone HCl 80 mg/ Methadone 100 mg 06/05/18 06:00 06/06/18 06:01 HCl 20 mg PO 100 mg DAILY@0600 HOA Administration Multivit/Folic Acid/Iron 1 tab 05/24/18 10:00 06/05/18 09:59 Vitamins (Sjr) - PO 1 tab DAILY HOA Administration Pseudoephedrine/Triprolidine 1 combo 05/23/18 14:30 Actifed - PO TID PRN NASAL CONGESTION Thiamine HCl 100 mg 05/23/18 22:00 06/05/18 21:00 Vitamin B1 - PO 100 mg HS HOA Administration Tolnaftate 1 applic 05/24/18 12:30 06/05/18 21:00 Tinactin 1% Cream - TP 1 applic BID HOA Administration Current Side Effect: No Lab tests ordered: Yes Lab tests reviewed: Yes Provider note:: Patient has completed this program today. He has met his treatment goals and will continue to address his treatment issues at outpatient treatment at [facility] services. 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 He is stable for discharge today Total face to face time:: 35 Mental Status Exam - Mental Status Exam Alert and Oriented to: Time, Place, Person Cognitive Function: Fair Patient Appearance: Well Groomed Mood: Hopeful, Euthymic Affect: Appropriate Patient Behavior: Cooperative Speech Pattern: Clear Voice Loudness: Normal Thought Process: Intact Thought Disorder: Not Present Hallucinations: Denies Suicidal Ideation: Denies Homicidal Ideation: Denies Insight/Judgement: Fair Sleep: Well Appetite: Good Muscle strength/Tone: Normal Gait/Station: Normal Psychiatric Treatment Plan - Problem List (1) Alcohol dependence Current Visit: Yes (2) Cocaine dependence Current Visit: Yes (3) Opioid dependence on agonist therapy Current Visit: Yes (4) Nicotine dependence Current Visit: No (5) HIV (human immunodeficiency virus infection) Current Visit: No Comment: patient was taking complara "not working" had genotype, follow up with infectious disease physician, currently not on any medication (6) Hepatitis C Current Visit: No Qualifiers: Viral hepatitis chronicity: chronic Hepatic coma status: without hepatic coma Qualified Code(s): B18.2 - Chronic viral hepatitis C Initial treatment plan: Patient is discharged today and referred to [facility] for outpatient treatment
[2018-06-06] MEDS: PRENATAL VITAMINS W/ FOLIC ACID TABLET (FP) PO SCH (10:07)
[2018-06-06] MEDS: TOLNAFTATE 1% CREAM 15 GM TUBE TP SCH (10:07)
== END 2018-06-06 10:40 | disposition home or self-care (01) | DRG 772 ==
LOC: YASAS 14:16 → Y5N 14:18
PROVIDERS: ADMIT Psychiatry & Neurology Psychiatry; ATTEND Psychiatry & Neurology Psychiatry
PROC: HZ42ZZZ Group Counseling for Substance Abuse Treatment, Cognitive-Behavioral (ICD-10-PCS; principal; 2018-05-23)
DX: F10.20 Alcohol dependence, uncomplicated (principal); F11.20 Opioid dependence, uncomplicated; F14.20 Cocaine dependence, uncomplicated; F17.210 Nicotine dependence, cigarettes, uncomplicated; Z21 Asymptomatic human immunodeficiency virus [HIV] infection status; B18.2 Chronic viral hepatitis C; Z91.14 Patient's other noncompliance with medication regimen

== ENCOUNTER 2018-08-17 15:31 | Inpatient (IN) | payer OTHER ==
--- NOTE | 2018-08-17 16:49 | HP ---
CIWA Score Nausea/Vomitin-Int. Nausea w/Dry Heave Muscle Tremors: 3 Anxiety: 0-No Anxiety, at Ease Agitation: 4-Moderately Restless Paroxysmal Sweats: 3 Orientation: 0-Oriented Tacttile Disturbances: 0-None Auditory Disturbances: 0-None Visual Disturbances: 0-None Headache: 0-None Present CIWA-Ar Total Score: 14 - Admission Criteria OASAS Guidelines: Admission for Medically Managed Detox: Requires at least one of the followin. CIWA greater than 12 2. Seizures within the past 24 hours 3. Delirium tremens within the past 24 hours 4. Hallucinations within the past 24 hours 5. Acute intervention needed for co occurring medical disorder 6. Acute intervention needed for co occurring psychiatric disorder 7. Severe withdrawal that cannot be handled at a lower level of care (continued vomiting, continued diarrhea, abnormal vital signs) requiring intravenous medication and/or fluids 8. Patient presents the following: CIWA greater than 12 Admission Criteria Met: Admission criteria met Admission ROS [facility] Allergies/Adverse Reactions: Allergies Allergy/AdvReac Type Severity Reaction Status Date / Time No Known Allergies Allergy Verified 08/17/18 17:43 History of Present Illness: patient here requesting detox from etoh use , reports 3 pints of liquor and 3x 6-pk /day x 1 year , prior etoh use minimal , reports tremors if not drinking, denies blackouts , seizures, + falls while intoxicated , denies injuries to self or others, does not drive, latest use today current RAMIRO 0.030 . heroin : 3 bags/ day,first age of use 12 , IVDU in neck , needles from the pharmacy , denies sharing or re-using , + abscess in left leg " a long time ago ", denies OD , latest use 2 days ago , MMTP 3-4 years at [facility], highest dose 100 mg x 18 mo . cocaine : 150 $ / day IVDU since age 12 xanax : every other day 2-3 sticks x 1 mg each . tobacco : occasional use PMHX : HIV (dx 1988 RF = [facility]), hep C (dx 1998 RF + unknown , no tx , planning to seek tx ), OA back , HIV neuropathy PSHX : appy age 7 PSYch : denies SHx: lives alone , supports himself from welfare , 1 child age 24 . Exam Limitations: Clinical Condition - Ebola screening Have you traveled outside of the country in the last 21 days: No Have you had contact with anyone from an Ebola affected area: No Do you have a fever: No - Review of Systems Constitutional: See HPI EENT: reports: Other (reading glasses , denies dysphagia) Respiratory: reports: No Symptoms reported Cardiac: reports: No Symptoms Reported GI: reports: See HPI : reports: No Symptoms Reported Musculoskeletal: reports: Back Pain Integumentary: reports: Other (IVDU) Neuro: reports: No Symptoms reported Endocrine: reports: Other (reports borderline DM) Psychiatric: reports: Orientated x3, Anxious Patient History - Patient Medical History Hx Anemia: No Hx Asthma: No Hx Chronic Obstructive Pulmonary Disease (COPD): No Hx Cardiac Disorders: No Hx Congestive Heart Failure: No Hx Hypertension: No Hx Hypercholesterolemia: No Hx Pacemaker: No HX Cerebrovascular Accident: No Hx Seizures: No Hx Dementia: No Hx Diabetes: No Hx Gastrointestinal Disorders: No Hx Liver Disease: No Hx Genitourinary Disorders: No Hx Sexually Transmitted Disorders: No Hx Renal Disease (ESRD): No Hx Thyroid Disease: No Hx Human Immunodeficiency Virus (HIV): Yes (1988 currently no med) Hx Hepatitis C: Yes Hx Depression: No Hx Suicide Attempt: No Hx Bipolar Disorder: No Hx Schizophrenia: No - Patient Surgical History Past Surgical History: Yes Hx Neurologic Surgery: No Hx Cataract Extraction: No Hx Cardiac Surgery: No Hx Lung Surgery: No Hx Breast Surgery: No Hx Breast Biopsy: No Hx Abdominal Surgery: No Hx Appendectomy: Yes (at age 7 yrs old.) Hx Cholecystectomy: No Hx Genitourinary Surgery: No Hx Section: No Hx Orthopedic Surgery: No Anesthesia Reaction: No - PPD History Date: 05/22/18 Results: 0 mm. - Smoking Cessation Smoking history: Current some day smoker Have you smoked in the past 12 months: Yes Aproximately how many cigarettes per day: 3 If you are a former smoker, when did you quit?: 6 mos. ago Cigars Per Day: 0 Hx Chewing Tobacco Use: No Initiated information on smoking cessation: No - Substances Abused Alcohol Route: Oral Frequency: Daily Amount used: liquor- 3 pints, beer- 3 six pack Age of first use: 14 Date of Last Use: 08/17/18 Alprazolam (Xanax) Route: Oral Frequency: Daily Amount used: 4mg Age of first use: 22 Date of Last Use: 08/16/18 Family Disease History - Family Disease History Family Disease History: Diabetes: Grandparent, Heart Disease: Grandparent Admission Physical Exam [facility] - Physical General Appearance: Yes: Disheveled, Mild Distress HEENTM: Yes: EOMI, Hearing grossly Normal, Normocephalic, Normal Voice Respiratory: Yes: Chest Non-Tender, Lungs Clear, Normal Breath Sounds Breast: Yes: Breast Exam Deferred Cardiology: Yes: Regular Rhythm, Regular Rate, S1, S2 Abdominal: Yes: Non Tender, Soft Genitourinary: Yes: Within Normal Limits Back: Yes: Normal Inspection Musculoskeletal: Yes: Gait Steady Extremities: Yes: Non-Tender, Tremors Neurological: Yes: Motor Strength 5/5 Integumentary: Yes: Track Rosado (left lateral neck) - Diagnostic (1) Alcohol dependence with uncomplicated withdrawal Current Visit: No Status: Acute (2) Cocaine dependence Current Visit: No Status: Chronic Qualifiers: Substance use status: uncomplicated Qualified Code(s): F14.20 - Cocaine dependence, uncomplicated (3) Opioid dependence on agonist therapy Current Visit: No Status: Acute (4) Nicotine dependence Current Visit: No Status: Chronic Qualifiers: Nicotine product type: cigarettes (5) Sedative hypnotic or anxiolytic dependence Current Visit: Yes Status: Acute BHS Breath Alcohol Content Breath Alcohol Content: 0
[2018-08-17] MEDS ORDERED: P-EPHED 60MG/TRIPROLIDI 2.5MG TABLET PO PRN (17:02)
[2018-08-17] MEDS ORDERED: MAGNESIUM CITRATE 300 ML BOTTLE PO PRN (17:02)
[2018-08-17] MEDS ORDERED: MENTHOL/PHENOL 1 EACH UD MM PRN (17:02)
[2018-08-17] MEDS ORDERED: guaiFENesin/D-METHORPHAN HB 10 ML UNIT-DOSE CUPS PO PRN (17:02)
[2018-08-17] MEDS ORDERED: ACETAMINOPHEN 325 MG TABLET (FP) PO PRN (17:02)
[2018-08-17] MEDS ORDERED: IBUPROFEN 400 MG TABLET (FP) PO PRN (17:02)
[2018-08-17] MEDS ORDERED: MAG HYDROX/AL HYDROX/SIMETH 30 ML UNIT-DOSE CUP PO PRN (17:02)
[2018-08-17] MEDS ORDERED: chlordiazePOXIDE HCL 25 MG CAPSULE PO PRN (17:02)
[2018-08-17] MEDS ORDERED: MAGNESIUM HYDROX 2400MG/30ML ORAL SUSPENSION 30 ML CUP PO PRN (17:02)
[2018-08-17] MEDS ORDERED: NICOTINE POLACRILEX 2 MG GUM BUC PRN (17:02)
[2018-08-17 17:56] VITALS: BMI 18.2
[2018-08-17] MEDS ORDERED: MELATONIN 5 MG TABLETS PO PRN (22:00)
[2018-08-17] MEDS: THIAMINE HCL 100 MG TABLET (FP) PO SCH (22:02)
[2018-08-17] MEDS: chlordiazePOXIDE HCL 25 MG CAPSULE PO SCH (22:02)
[2018-08-18] MEDS: chlordiazePOXIDE HCL 25 MG CAPSULE PO SCH ×4 (05:42→22:06)
[2018-08-18] MEDS ORDERED: METHADONE HCL 10 MG TABLET PO SCH (07:15)
[2018-08-18] MEDS ORDERED: METHADONE HCL 10 MG TABLET ONE (07:33)
[2018-08-18] MEDS ORDERED: METHADONE HCL 40 MG DISPERSABLE TABLET ONE (07:33)
[2018-08-18] MEDS: METHADONE 80 MG, METHADONE 20 MG PO SCH (07:34)
[2018-08-18] MEDS: COLLOIDAL OATMEAL 1 BAR EACH TP PRN (10:30)
[2018-08-18] MEDS: PRENATAL VITAMINS W/ FOLIC ACID TABLET (FP) PO SCH (10:31)
[2018-08-18] MEDS: TOLNAFTATE 1% CREAM 15 GM TUBE TP SCH ×2 (10:34→22:07)
[2018-08-18 10:39] LABS: HEMOGLOBIN 12.3 GM/dL (11.7-16.9); MCH 29.2 pg (25.7-33.7); MCHC 33.3 g/dl (32.0-35.9); MEAN CELL VOLUME 87.7 fl (80-96); MEAN PLT VOLUME 8.5 fl (7.5-11.1); PLATELET COUNT 200 K/MM3 (134-434); RBC 4.22 M/mm3 (4.00-5.60); RDW 15.2 % (11.9-15.9); WHITE BLOOD COUNT 3.9 K/mm3 (4.0-10.0)
[2018-08-18 10:55] LABS: ALK PHOS 268 U/L (45-117); ANION GAP 10 MMOL/L (8-16); BILIRUBIN,TOTAL 0.4 mg/dL (0.2-1); BLOOD UREA NITROGEN 13 mg/dL (7-18); CALCIUM 8.4 mg/dL (8.5-10.1); CHLORIDE 105 mmol/L (98-107); CO2 26 mmol/L (21-32); CREATININE 1.1 mg/dL (0.55-1.3); GLUCOSE,RANDOM 63 mg/dL (74-106); POTASSIUM 3.8 mmol/L (3.5-5.1); SGOT/AST 79 U/L (15-37); SGPT/ALT 60 U/L (13-61); SODIUM 141 mmol/L (136-145); TOT PROT 7.7 g/dl (6.4-8.2)
--- NOTE | 2018-08-18 16:59 | PN ---
S CIWA - CIWA Score Nausea/Vomitin-No Nausea/No Vomiting Muscle Tremors: 3 Anxiety: 4-Mod. Anxious/Guarded Agitation: 3 Paroxysmal Sweats: No Perspiration Orientation: 0-Oriented Tacttile Disturbances: 0-None Auditory Disturbances: 0-None Visual Disturbances: 2-Mild Sensitivity Headache: 0-None Present CIWA-Ar Total Score: 12 BHS Progress Note (SOAP) Subjective: Body Aches, Tremors, Anxious. Objective: PATIENT A & O X 3, OBSERVED AMBULATING ON UNIT. IN NO ACUTE DISTRESS. 08/18/18 17:01 Vital Signs Temperature 97.6 F 08/18/18 14:08 Pulse Rate 75 08/18/18 14:08 Respiratory Rate 18 08/18/18 14:08 Blood Pressure 113/69 08/18/18 14:08 O2 Sat by Pulse Oximetry (%) Laboratory Tests 08/18/18 08/18/18 07:00 07:00 WBC 3.9 L RBC 4.22 Hgb 12.3 Hct 37.0 MCV 87.7 MCH 29.2 MCHC 33.3 RDW 15.2 Plt Count 200 MPV 8.5 Sodium 141 Potassium 3.8 Chloride 105 Carbon Dioxide 26 Anion Gap 10 BUN 13 Creatinine 1.1 Creat Clearance w eGFR > 60 Random Glucose 63 L Calcium 8.4 L Total Bilirubin 0.4 AST 79 H ALT 60 Alkaline Phosphatase 268 H Total Protein 7.7 Albumin 3.0 L LABS NOTED. Assessment: 08/18/18 17:01 WITHDRAWAL SYMPTOMS. ELEAVATED ALKALINE PHOSPHATASE LEVEL. 08/18/18 17:02 Plan: CONTINUE DETOX. INCREASE DAILY PO FLUID INTAKE. REPEAT AP ON 08/20/2018 FOR ELEVATED ADMISSION LEVEL.
[2018-08-18] MEDS: THIAMINE HCL 100 MG TABLET (FP) PO SCH (22:06)
[2018-08-19] MEDS ORDERED: METHADONE HCL 40 MG DISPERSABLE TABLET ONE (04:50)
[2018-08-19] MEDS ORDERED: METHADONE HCL 10 MG TABLET ONE (04:50)
[2018-08-19] MEDS: METHADONE 80 MG, METHADONE 20 MG PO SCH (05:10)
[2018-08-19] MEDS: chlordiazePOXIDE HCL 25 MG CAPSULE PO SCH ×3 (05:11→17:45)
[2018-08-19] MEDS: PRENATAL VITAMINS W/ FOLIC ACID TABLET (FP) PO SCH (10:39)
[2018-08-19] MEDS: TOLNAFTATE 1% CREAM 15 GM TUBE TP SCH ×2 (11:36→22:07)
--- NOTE | 2018-08-19 16:12 | PN ---
S CIWA - CIWA Score Nausea/Vomitin-No Nausea/No Vomiting Muscle Tremors: 3 Anxiety: 3 Agitation: 1-Slight > Activity Paroxysmal Sweats: No Perspiration Orientation: 0-Oriented Tacttile Disturbances: 2-Mild Itch/Numbness/Burn Auditory Disturbances: 0-None Visual Disturbances: 1-Very Mild Sensitivity Headache: 0-None Present CIWA-Ar Total Score: 10 S Progress Note (SOAP) Subjective: Body Aches, Anxious, Tremors. Objective: PATIENT A & O X 3, OBSERVED AMBULATING ON UNIT. IN NO ACUTE DISTRESS. 08/19/18 16:11 Vital Signs Temperature 96.3 F L 08/19/18 13:46 Pulse Rate 72 08/19/18 13:46 Respiratory Rate 17 08/19/18 13:46 Blood Pressure 116/80 08/19/18 13:46 O2 Sat by Pulse Oximetry (%) Laboratory Tests 08/18/18 08/18/18 08/18/18 07:00 07:00 07:00 WBC 3.9 L RBC 4.22 Hgb 12.3 Hct 37.0 MCV 87.7 MCH 29.2 MCHC 33.3 RDW 15.2 Plt Count 200 MPV 8.5 Sodium 141 Potassium 3.8 Chloride 105 Carbon Dioxide 26 Anion Gap 10 BUN 13 Creatinine 1.1 Creat Clearance w eGFR > 60 Random Glucose 63 L Calcium 8.4 L Total Bilirubin 0.4 AST 79 H ALT 60 Alkaline Phosphatase 268 H Total Protein 7.7 Albumin 3.0 L RPR Titer Nonreactive LABS NOTED. Assessment: 08/19/18 16:11 WITHDRAWAL SYMPTOMS. ELEVATED ALKALINE PHOSPHATASE LEVEL. Plan: CONTINUE DETOX. REPEAT ALKALINE PHOSPHATASE TOMORROW AM FOR ELEVATED ADMISSION LEVEL.
[2018-08-19] MEDS: chlordiazePOXIDE 5 MG CAPSULE PO SCH (22:05)
[2018-08-19] MEDS: THIAMINE HCL 100 MG TABLET (FP) PO SCH (22:05)
[2018-08-20] MEDS ORDERED: METHADONE HCL 10 MG TABLET ONE (04:51)
[2018-08-20] MEDS ORDERED: METHADONE HCL 40 MG DISPERSABLE TABLET ONE (04:52)
[2018-08-20] MEDS: METHADONE 80 MG, METHADONE 20 MG PO SCH (05:11)
[2018-08-20] MEDS: chlordiazePOXIDE 5 MG CAPSULE PO SCH ×3 (05:11→17:38)
[2018-08-20] MEDS: COLLOIDAL OATMEAL 1 BAR EACH TP PRN (09:52)
[2018-08-20] MEDS: PRENATAL VITAMINS W/ FOLIC ACID TABLET (FP) PO SCH (10:15)
[2018-08-20] MEDS: TOLNAFTATE 1% CREAM 15 GM TUBE TP SCH ×2 (10:16→22:36)
--- NOTE | 2018-08-20 14:06 | PN ---
BHS Progress Note (SOAP) Subjective: feeling better less tremor mild sweating social with peers in day room Objective: 08/20/18 14:06 Vital Signs Temperature 98.3 F 08/20/18 13:19 Pulse Rate 61 08/20/18 13:19 Respiratory Rate 18 08/20/18 13:19 Blood Pressure 104/61 08/20/18 13:19 O2 Sat by Pulse Oximetry (%) Laboratory Last Values WBC 3.9 K/mm3 (4.0-10.0) L 08/18/18 07:00 RBC 4.22 M/mm3 (4.00-5.60) 08/18/18 07:00 Hgb 12.3 GM/dL (11.7-16.9) 08/18/18 07:00 Hct 37.0 % (35.4-49) 08/18/18 07:00 MCV 87.7 fl (80-96) 08/18/18 07:00 MCH 29.2 pg (25.7-33.7) 08/18/18 07:00 MCHC 33.3 g/dl (32.0-35.9) 08/18/18 07:00 RDW 15.2 % (11.9-15.9) 08/18/18 07:00 Plt Count 200 K/MM3 (134-434) 08/18/18 07:00 MPV 8.5 fl (7.5-11.1) 08/18/18 07:00 Sodium 141 mmol/L (136-145) 08/18/18 07:00 Potassium 3.8 mmol/L (3.5-5.1) 08/18/18 07:00 Chloride 105 mmol/L (98-107) 08/18/18 07:00 Carbon Dioxide 26 mmol/L (21-32) 08/18/18 07:00 Anion Gap 10 MMOL/L (8-16) 08/18/18 07:00 BUN 13 mg/dL (7-18) 08/18/18 07:00 Creatinine 1.1 mg/dL (0.55-1.3) 08/18/18 07:00 Creat Clearance w eGFR > 60 (>60) 08/18/18 07:00 Random Glucose 63 mg/dL (74-106) L 08/18/18 07:00 Calcium 8.4 mg/dL (8.5-10.1) L 08/18/18 07:00 Total Bilirubin 0.4 mg/dL (0.2-1) 08/18/18 07:00 AST 79 U/L (15-37) H 08/18/18 07:00 ALT 60 U/L (13-61) 08/18/18 07:00 Alkaline Phosphatase 268 U/L (45-117) H 08/18/18 07:00 Total Protein 7.7 g/dl (6.4-8.2) 08/18/18 07:00 Albumin 3.0 g/dl (3.4-5.0) L 08/18/18 07:00 RPR Titer Nonreactive (NONREACTIVE) 08/18/18 07:00 lab noted Assessment: 08/20/18 14:06 mild withdrawal sx Plan: continue detox
[2018-08-20] MEDS: chlordiazePOXIDE HCL 10 MG CAPSULE PO SCH (22:35)
[2018-08-20] MEDS: THIAMINE HCL 100 MG TABLET (FP) PO SCH (22:35)
[2018-08-21] MEDS ORDERED: METHADONE HCL 10 MG TABLET ONE (04:18)
[2018-08-21] MEDS ORDERED: METHADONE HCL 40 MG DISPERSABLE TABLET ONE (04:18)
[2018-08-21] MEDS: METHADONE 80 MG, METHADONE 20 MG PO SCH (05:13)
[2018-08-21] MEDS: chlordiazePOXIDE HCL 10 MG CAPSULE PO SCH ×2 (05:13→10:21)
[2018-08-21 09:14] VITALS: BP 106/77; PULSE 71; TEMP 98.5
[2018-08-21] MEDS: PRENATAL VITAMINS W/ FOLIC ACID TABLET (FP) PO SCH (10:20)
--- NOTE | 2018-08-21 11:37 | DS ---
[facility] Detox Discharge Summary Admission Date: 08/17/18 Discharge Date: 08/21/18 - History Present History: Alcohol Dependence Additional Comments: 48 years old male admitted on 08/17/18 for alcohol withdrawal stabilization completed detox regimen aftercare [facility] - Physical Exam Results Vital Signs: Vital Signs Temperature 98.5 F 08/21/18 09:14 Pulse Rate 71 08/21/18 09:14 Respiratory Rate 18 08/21/18 09:14 Blood Pressure 106/77 08/21/18 09:14 O2 Sat by Pulse Oximetry (%) Pertinent Admission Physical Exam Findings: alcohol withdrawal sx Laboratory Last Values WBC 3.9 K/mm3 (4.0-10.0) L 08/18/18 07:00 RBC 4.22 M/mm3 (4.00-5.60) 08/18/18 07:00 Hgb 12.3 GM/dL (11.7-16.9) 08/18/18 07:00 Hct 37.0 % (35.4-49) 08/18/18 07:00 MCV 87.7 fl (80-96) 08/18/18 07:00 MCH 29.2 pg (25.7-33.7) 08/18/18 07:00 MCHC 33.3 g/dl (32.0-35.9) 08/18/18 07:00 RDW 15.2 % (11.9-15.9) 08/18/18 07:00 Plt Count 200 K/MM3 (134-434) 08/18/18 07:00 MPV 8.5 fl (7.5-11.1) 08/18/18 07:00 Sodium 141 mmol/L (136-145) 08/18/18 07:00 Potassium 3.8 mmol/L (3.5-5.1) 08/18/18 07:00 Chloride 105 mmol/L (98-107) 08/18/18 07:00 Carbon Dioxide 26 mmol/L (21-32) 08/18/18 07:00 Anion Gap 10 MMOL/L (8-16) 08/18/18 07:00 BUN 13 mg/dL (7-18) 08/18/18 07:00 Creatinine 1.1 mg/dL (0.55-1.3) 08/18/18 07:00 Creat Clearance w eGFR > 60 (>60) 08/18/18 07:00 Random Glucose 63 mg/dL (74-106) L 08/18/18 07:00 Calcium 8.4 mg/dL (8.5-10.1) L 08/18/18 07:00 Total Bilirubin 0.4 mg/dL (0.2-1) 08/18/18 07:00 AST 79 U/L (15-37) H 08/18/18 07:00 ALT 60 U/L (13-61) 08/18/18 07:00 Alkaline Phosphatase 273 U/L (45-117) H 08/20/18 15:27 Total Protein 7.7 g/dl (6.4-8.2) 08/18/18 07:00 Albumin 3.0 g/dl (3.4-5.0) L 08/18/18 07:00 RPR Titer Nonreactive (NONREACTIVE) 08/18/18 07:00 lab noted - Treatment Hospital Course: Detox Protocol Followed, Detoxed Safely, Responded well, Discharged Condition Good, Rehab Referral Accepted Patient has Accepted a Rehab Referral to: [facility] - Medication Discharge Medications: Ambulatory Orders NK [No Known Home Medication] 04/07/16 - Diagnosis (1) Alcohol dependence with uncomplicated withdrawal Status: Acute (2) HIV (human immunodeficiency virus infection) Status: Chronic Qualifiers: HIV symptom status: asymptomatic Qualified Code(s): Z21 - Asymptomatic human immunodeficiency virus [HIV] infection status (3) Hepatitis C Status: Chronic Qualifiers: Viral hepatitis chronicity: chronic Hepatic coma status: without hepatic coma Qualified Code(s): B18.2 - Chronic viral hepatitis C (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
== END 2018-08-21 10:50 | disposition home or self-care (01) | DRG 773 ==
LOC: YASAS 15:31 → Y3N 18:09
PROVIDERS: ADMIT Neuromusculoskeletal Medicine & OMM; ATTEND Neuromusculoskeletal Medicine & OMM
PROC: HZ2ZZZZ Detoxification Services for Substance Abuse Treatment (ICD-10-PCS; principal; 2018-08-17)
DX: F10.230 Alcohol dependence with withdrawal, uncomplicated (principal); F13.20 Sedative, hypnotic or anxiolytic dependence, uncomplicated; F14.20 Cocaine dependence, uncomplicated; F11.20 Opioid dependence, uncomplicated; F17.213 Nicotine dependence, cigarettes, with withdrawal; Z21 Asymptomatic human immunodeficiency virus [HIV] infection status; B18.2 Chronic viral hepatitis C; R63.4 Abnormal weight loss; Z68.1 Body mass index [BMI] 19.9 or less, adult
CPT/HCPCS: 36415; 80053; 84075; 85027; 86593

== ENCOUNTER 2018-10-10 11:30 | Inpatient (IN) | payer OTHER ==
[2018-10-10 13:16] VITALS: BMI 18.2
[2018-10-10] MEDS ORDERED: LOPERAMIDE HCL 2 MG CAPSULE PO PRN (15:01)
[2018-10-10] MEDS ORDERED: MAGNESIUM CITRATE 300 ML BOTTLE PO PRN (15:01)
[2018-10-10] MEDS ORDERED: guaiFENesin 200 MG/10 ML 10 ML UNIT-DOSE CUPS PO PRN (15:01)
[2018-10-10] MEDS ORDERED: P-EPHED 60MG/TRIPROLIDI 2.5MG TABLET PO PRN (15:01)
[2018-10-10] MEDS ORDERED: MENTHOL/PHENOL 1 EACH UD MM PRN (15:01)
[2018-10-10] MEDS ORDERED: IBUPROFEN 400 MG TABLET (FP) PO PRN (15:01)
[2018-10-10] MEDS ORDERED: ACETAMINOPHEN 325 MG TABLET (FP) PO PRN (15:01)
[2018-10-10] MEDS ORDERED: MAGNESIUM HYDROX 2400MG/30ML ORAL SUSPENSION 30 ML CUP PO PRN (15:01)
--- NOTE | 2018-10-10 15:01 | HP ---
CIWA Score - Admission Criteria OASAS Guidelines: Admission for Medically Managed Detox: Requires at least one of the followin. CIWA greater than 12 2. Seizures within the past 24 hours 3. Delirium tremens within the past 24 hours 4. Hallucinations within the past 24 hours 5. Acute intervention needed for co occurring medical disorder 6. Acute intervention needed for co occurring psychiatric disorder 7. Severe withdrawal that cannot be handled at a lower level of care (continued vomiting, continued diarrhea, abnormal vital signs) requiring intravenous medication and/or fluids 8. Admission ROS [facility] Chief Complaint: jewel and alcohol rehabilitation Allergies/Adverse Reactions: Allergies Allergy/AdvReac Type Severity Reaction Status Date / Time No Known Allergies Allergy Verified 10/10/18 14:52 History of Present Illness: 48 yo male with hx of cocaine, alcohol and heroin (IV) dependence, presents today for rehabilitation, this is one of multiple admissions, last admission July 2018. Patient reports he was referred by his [facility] program VIP, patient currently on methadone maintenance 100 mg qd, last medicated today, dose verified. Patient reports the following medical hx: HVI, Hep C, anxiety and depression, reports currently not taking medications for his medical conditions. Patient denies suicidal / homicidal ideation at this time. Denies hx of seizures or blackouts. Exam Limitations: No Limitations - Ebola screening Have you traveled outside of the country in the last 21 days: No Have you had contact with anyone from an Ebola affected area: No Have you been sick,other than usual withdrawal symptoms: No Do you have a fever: No - Review of Systems Constitutional: Loss of Appetite, Changes in sleep, Unintentional Wgt. Loss (10 lbs) EENT: reports: No Symptoms Reported Respiratory: reports: No Symptoms reported Cardiac: reports: No Symptoms Reported GI: reports: No Symptoms Reported : reports: No Symptoms Reported Musculoskeletal: reports: No Symptoms Reported Integumentary: reports: No Symptoms Reported Neuro: reports: No Symptoms reported Endocrine: reports: No Symptoms Reported Hematology: reports: No Symptoms Reported Psychiatric: reports: Orientated x3, Anxious, Depressed Other Systems: Reviewed and Negative Patient History - Patient Medical History Hx Anemia: No Hx Asthma: No Hx Chronic Obstructive Pulmonary Disease (COPD): No Hx Cancer: No Hx Cardiac Disorders: No Hx Congestive Heart Failure: No Hx Hypertension: No Hx Hypercholesterolemia: No Hx Pacemaker: No HX Cerebrovascular Accident: No Hx Seizures: No Hx Dementia: No Hx Diabetes: No Hx Gastrointestinal Disorders: No Hx Liver Disease: No Hx Genitourinary Disorders: No Hx Sexually Transmitted Disorders: No Hx Renal Disease (ESRD): No Hx Thyroid Disease: No Hx Human Immunodeficiency Virus (HIV): Yes (1988 currently no med) Hx Hepatitis C: Yes Hx Depression: Yes Hx Suicide Attempt: No Hx Bipolar Disorder: No Hx Schizophrenia: No - Patient Surgical History Past Surgical History: Yes Hx Neurologic Surgery: No Hx Cataract Extraction: No Hx Cardiac Surgery: No Hx Lung Surgery: No Hx Breast Surgery: No Hx Breast Biopsy: No Hx Abdominal Surgery: No Hx Appendectomy: Yes (at age 7 yrs old.) Hx Cholecystectomy: No Hx Genitourinary Surgery: No Hx Section: No Hx Orthopedic Surgery: No Anesthesia Reaction: No - PPD History Previous Implant?: No Date: 05/22/18 Results: 0 mm. PPD to be Administered?: No - Reproductive History Patient : No - Smoking Cessation Smoking history: Former smoker Have you smoked in the past 12 months: Yes Aproximately how many cigarettes per day: 0 If you are a former smoker, when did you quit?: 2 weeks Cigars Per Day: 0 Hx Chewing Tobacco Use: No Initiated information on smoking cessation: Yes 'Breaking Loose' booklet given: 10/10/18 - Substance & Tx. History Hx Alcohol Use: Yes Hx Substance Use: Yes Substance Use Type: Alcohol, Cocaine, Heroin Hx Substance Use Treatment: Yes (last detox [facility] July 2018) - Substances Abused Heroin Route: Injection Frequency: Daily Amount used: 4 bags Age of first use: 12 Date of Last Use: 10/09/18 Alcohol Route: Oral Frequency: Daily Amount used: 3 pint wine, 3 six beers ( 16 oz cans) Age of first use: 11 Date of Last Use: 10/08/18 Cocaine Route: Injection Frequency: Daily Amount used: $300 per day Age of first use: 12 Date of Last Use: 10/07/18 Family Disease History - Family Disease History Family Disease History: Diabetes: Grandparent, Heart Disease: Grandparent Admission Physical Exam BHS - Vital Signs Vital Signs: Vital Signs - 24 hr 10/10/18 13:11 Temperature 96.2 F L Pulse Rate 62 Respiratory 18 Rate Blood Pressure 126/83 - Physical General Appearance: Yes: Disheveled, Thin, Anxious HEENTM: Yes: EOMI, Hearing grossly Normal, Normal ENT Inspection, Normocephalic , Normal Voice, GRANT, Pharynx Normal, Tm's normal, Franco (track franco b/l neck , no infection present) Respiratory: Yes: Within Normal Limits Neck: Yes: Within Normal Limits Breast: Yes: Breast Exam Deferred Cardiology: Yes: Regular Rhythm, Regular Rate Abdominal: Yes: Normal Bowel Sounds, Non Tender, Flat, Soft Genitourinary: Yes: Within Normal Limits Back: Yes: Normal Inspection Musculoskeletal: Yes: full range of Motion, Gait Steady, Pelvis Stable Extremities: Yes: Normal Capillary Refill, Normal Inspection, Normal Range of Motion, Non-Tender Neurological: Yes: Within Normal Limits, cutter out II-XII NML intact, Fully Oriented, Alert, Normal Mood/Affect (anxious) Integumentary: Yes: Normal Color, Warm, Track Franco (neck) Lymphatic: Yes: Within Normal Limits - Diagnostic (1) Alcohol dependence Current Visit: Yes Status: Acute Qualifiers: Substance use status: uncomplicated Qualified Code(s): F10.20 - Alcohol dependence, uncomplicated (2) Opioid dependence on agonist therapy Current Visit: Yes Status: Acute Comment: on methadone matainance 100 mg last medicated today (3) Weight loss, non-intentional Current Visit: Yes Status: Acute Comment: ensure (4) Cocaine dependence Current Visit: Yes Status: Chronic Qualifiers: Substance use status: uncomplicated Qualified Code(s): F14.20 - Cocaine dependence, uncomplicated (5) HIV (human immunodeficiency virus infection) Current Visit: Yes Status: Chronic Qualifiers: HIV symptom status: asymptomatic Qualified Code(s): Z21 - Asymptomatic human immunodeficiency virus [HIV] infection status Comment: patient was taking complara "not working" had genotype, follow up with infectious disease physician, currently not on any medication (6) Hepatitis C Current Visit: Yes Status: Chronic Qualifiers: Viral hepatitis chronicity: chronic Hepatic coma status: without hepatic coma Qualified Code(s): B18.2 - Chronic viral hepatitis C BHS Breath Alcohol Content Breath Alcohol Content: 0 Urine Drug Screen - Results Drug Screen Negative: No Urine Drug Screen Results: JEWEL-Cocaine, OPI-Opiates, BZO-Benzodiazepines, MTD- Methadone Inpatient Rehab Admission - Rehab Decision to Admit Inpatient rehab admission?: Yes - Initial Determination Are CD services needed?: Yes Free of communicable disease: Yes Not in need of hospitalization: Yes - Rehab Admission Criteria Previous failed treatment: Yes Poor recovery environment: Yes Comorbidities: Yes Lacks judgement: Yes Patient is meeting Inpatient Rehab admission criteria:: Yes
[2018-10-10] MEDS ORDERED: BACITRACIN 0.9 GM PACKET TP ONE (18:00)
[2018-10-10] MEDS: BACLOFEN 10 MG TABLET (FP) PO SCH (21:12)
[2018-10-10] MEDS: GABAPENTIN 100 MG CAPSULE (FP) PO SCH (21:12)
[2018-10-10] MEDS: THIAMINE HCL 100 MG TABLET (FP) PO SCH (21:13)
[2018-10-11] MEDS ORDERED: METHADONE 80 MG, METHADONE (DETOX) 20 MG PO SCH (06:00)
[2018-10-11] MEDS ORDERED: METHADONE HCL 10 MG TABLET PO SCH (06:00)
[2018-10-11] MEDS: BACLOFEN 10 MG TABLET (FP) PO SCH ×3 (06:13→21:31)
[2018-10-11] MEDS: GABAPENTIN 100 MG CAPSULE (FP) PO SCH ×3 (06:13→21:31)
[2018-10-11] MEDS ORDERED: METHADONE HCL 10 MG TABLET (FOR DETOX USE ONLY) ONE (06:26)
[2018-10-11] MEDS ORDERED: METHADONE HCL 40 MG DISPERSABLE TABLET ONE (06:26)
[2018-10-11] MEDS: PRENATAL VITAMINS W/ FOLIC ACID TABLET (FP) PO SCH (09:47)
[2018-10-11] MEDS ORDERED: IBUPROFEN 400 MG TABLET (FP) PO PRN (09:58)
--- NOTE | 2018-10-11 09:58 | PN ---
S Progress Note (SOAP) Subjective: c/o left foot pain. Says it started this AM when he woke up and stood up and put weight on that foot. States this has never happened to him before. Denies injury or hx of Gout. Objective: Medial aspect of right foot by big toe swollen and red. 10/11/18 09:56 Assessment: 10/11/18 09:57 swollen right metatarsal Plan: Motrin ordered.
[2018-10-11] MEDS ORDERED: MINERAL OIL/PETROLAT/WATER TOPICAL CREAM 454 GM JAR TP PRN (10:07)
[2018-10-11 10:59] LABS: HEMATOCRIT 39.4 % (35.4-49); HEMOGLOBIN 12.9 GM/dL (11.7-16.9); MCH 28.9 pg (25.7-33.7); MCHC 32.7 g/dl (32.0-35.9); MEAN CELL VOLUME 88.2 fl (80-96); PLATELET COUNT 183 K/MM3 (134-434); RBC 4.47 M/mm3 (4.00-5.60); RDW 15.2 % (11.9-15.9); WHITE BLOOD COUNT 3.6 K/mm3 (4.0-10.0)
[2018-10-11 11:29] LABS: ALBUMIN 3.3 g/dl (3.4-5.0); ALK PHOS 224 U/L (45-117); ANION GAP 3 MMOL/L (8-16); BILIRUBIN,TOTAL 0.2 mg/dL (0.2-1); BLOOD UREA NITROGEN 15 mg/dL (7-18); CALCIUM 8.6 mg/dL (8.5-10.1); CHLORIDE 105 mmol/L (98-107); CO2 31 mmol/L (21-32); CREATININE 1.2 mg/dL (0.55-1.3); GLUCOSE,RANDOM 95 mg/dL (74-106); POTASSIUM 4.6 mmol/L (3.5-5.1); SGOT/AST 56 U/L (15-37); SGPT/ALT 41 U/L (13-61); SODIUM 139 mmol/L (136-145)
[2018-10-11] MEDS: THIAMINE HCL 100 MG TABLET (FP) PO SCH (21:31)
[2018-10-11 23:13] LABS: EPI CELLS 0.7 /HPF (FEW); URINE APPEARANCE CLEAR; URINE BACTERIA 1.008 /hpf (NEGATIVE); URINE BILIRUBIN 1+ (<2.0 mg/dL); URINE COLOR DK YELLOW; URINE GLUCOSE (UA) NEGATIVE (NEGATIVE); URINE KETONE TRACE (NEGATIVE); URINE LEUK ESTERASE TRACE (NEGATIVE); URINE NITRITE NEGATIVE (NEGATIVE); URINE PROTEIN NEGATIVE (NEGATIVE); URINE RBC 6 /hpf (0-3); URINE WBC 0 /hpf (3-5)
[2018-10-12] MEDS ORDERED: METHADONE HCL 40 MG DISPERSABLE TABLET ONE (04:12)
[2018-10-12] MEDS ORDERED: METHADONE HCL 10 MG TABLET ONE (04:12)
[2018-10-12] MEDS: METHADONE 80 MG, METHADONE 20 MG PO SCH (05:59)
[2018-10-12] MEDS: GABAPENTIN 100 MG CAPSULE (FP) PO SCH ×3 (05:59→21:11)
[2018-10-12] MEDS: BACLOFEN 10 MG TABLET (FP) PO SCH ×3 (05:59→21:12)
[2018-10-12] MEDS: COLLOIDAL OATMEAL 1 BAR EACH TP PRN ×2 (07:28→09:42)
[2018-10-12] MEDS: PRENATAL VITAMINS W/ FOLIC ACID TABLET (FP) PO SCH (09:41)
--- NOTE | 2018-10-12 10:46 | PN ---
S Progress Note (SOAP) Subjective: reports itchy feet Objective: 10/12/18 10:45 Red, scaly areas around toes. Assessment: 10/12/18 10:46 tinea pedis Plan: tinactin cream ordered
[2018-10-12] MEDS: THIAMINE HCL 100 MG TABLET (FP) PO SCH (21:11)
[2018-10-12] MEDS: TOLNAFTATE 1% CREAM 15 GM TUBE TP SCH (21:11)
[2018-10-13] MEDS ORDERED: METHADONE HCL 10 MG TABLET ONE (03:51)
[2018-10-13] MEDS ORDERED: METHADONE HCL 40 MG DISPERSABLE TABLET ONE (03:51)
[2018-10-13] MEDS: BACLOFEN 10 MG TABLET (FP) PO SCH ×3 (06:03→21:22)
[2018-10-13] MEDS: METHADONE 80 MG, METHADONE 20 MG PO SCH (06:03)
[2018-10-13] MEDS: GABAPENTIN 100 MG CAPSULE (FP) PO SCH ×3 (06:03→21:23)
[2018-10-13] MEDS: TOLNAFTATE 1% CREAM 15 GM TUBE TP SCH ×2 (09:42→21:23)
[2018-10-13] MEDS: PRENATAL VITAMINS W/ FOLIC ACID TABLET (FP) PO SCH (09:42)
[2018-10-13] MEDS: THIAMINE HCL 100 MG TABLET (FP) PO SCH (21:23)
[2018-10-14] MEDS ORDERED: METHADONE HCL 10 MG TABLET ONE (03:40)
[2018-10-14] MEDS ORDERED: METHADONE HCL 40 MG DISPERSABLE TABLET ONE (03:41)
[2018-10-14] MEDS: BACLOFEN 10 MG TABLET (FP) PO SCH ×3 (06:03→21:36)
[2018-10-14] MEDS: METHADONE 80 MG, METHADONE 20 MG PO SCH (06:03)
[2018-10-14] MEDS: GABAPENTIN 100 MG CAPSULE (FP) PO SCH ×3 (06:03→21:35)
[2018-10-14] MEDS: PRENATAL VITAMINS W/ FOLIC ACID TABLET (FP) PO SCH (09:55)
[2018-10-14] MEDS: TOLNAFTATE 1% CREAM 15 GM TUBE TP SCH ×2 (09:55→21:36)
[2018-10-14] MEDS: THIAMINE HCL 100 MG TABLET (FP) PO SCH (21:35)
[2018-10-14] MEDS: MELATONIN 5 MG TABLETS PO PRN (21:36)
[2018-10-15] MEDS ORDERED: METHADONE HCL 40 MG DISPERSABLE TABLET ONE (02:55)
[2018-10-15] MEDS ORDERED: METHADONE HCL 10 MG TABLET ONE (02:55)
[2018-10-15] MEDS: METHADONE 80 MG, METHADONE 20 MG PO SCH (05:55)
[2018-10-15] MEDS: GABAPENTIN 100 MG CAPSULE (FP) PO SCH ×3 (05:55→21:21)
[2018-10-15] MEDS: BACLOFEN 10 MG TABLET (FP) PO SCH ×3 (05:56→21:21)
[2018-10-15] MEDS: PRENATAL VITAMINS W/ FOLIC ACID TABLET (FP) PO SCH (09:41)
[2018-10-15] MEDS: TOLNAFTATE 1% CREAM 15 GM TUBE TP SCH ×2 (09:41→21:21)
[2018-10-15] MEDS: THIAMINE HCL 100 MG TABLET (FP) PO SCH (21:20)
[2018-10-15] MEDS: MELATONIN 5 MG TABLETS PO PRN (21:20)
[2018-10-16] MEDS ORDERED: METHADONE HCL 10 MG TABLET ONE (03:58)
[2018-10-16] MEDS ORDERED: METHADONE HCL 40 MG DISPERSABLE TABLET ONE (03:58)
[2018-10-16] MEDS: GABAPENTIN 100 MG CAPSULE (FP) PO SCH ×3 (06:11→21:21)
[2018-10-16] MEDS: BACLOFEN 10 MG TABLET (FP) PO SCH ×3 (06:11→21:22)
[2018-10-16] MEDS: METHADONE 80 MG, METHADONE 20 MG PO SCH (06:11)
[2018-10-16] MEDS: PRENATAL VITAMINS W/ FOLIC ACID TABLET (FP) PO SCH (10:04)
[2018-10-16] MEDS: TOLNAFTATE 1% CREAM 15 GM TUBE TP SCH ×2 (10:04→21:21)
[2018-10-16] MEDS: THIAMINE HCL 100 MG TABLET (FP) PO SCH (21:21)
[2018-10-17] MEDS ORDERED: METHADONE HCL 40 MG DISPERSABLE TABLET ONE (04:05)
[2018-10-17] MEDS ORDERED: METHADONE HCL 10 MG TABLET ONE (04:05)
[2018-10-17] MEDS: GABAPENTIN 100 MG CAPSULE (FP) PO SCH ×3 (06:17→21:54)
[2018-10-17] MEDS: METHADONE 80 MG, METHADONE 20 MG PO SCH (06:17)
[2018-10-17] MEDS: BACLOFEN 10 MG TABLET (FP) PO SCH ×3 (06:18→21:53)
[2018-10-17] MEDS: MAG HYDROX/AL HYDROX/SIMETH 30 ML UNIT-DOSE CUP PO PRN ×2 (06:52→16:36)
[2018-10-17] MEDS: PRENATAL VITAMINS W/ FOLIC ACID TABLET (FP) PO SCH (10:28)
[2018-10-17] MEDS: TOLNAFTATE 1% CREAM 15 GM TUBE TP SCH ×2 (10:29→21:54)
--- NOTE | 2018-10-17 19:27 | PN ---
S Progress Note (SOAP) Subjective: Pt states he threw up his methadone 100mg dose this morning. Now has stomach pain which he thinks is due to withdrawal. Vital Signs - 24 hr 10/17/18 10/17/18 10/17/18 00:30 03:30 07:09 Temperature 98.1 F Pulse Rate 74 Respiratory 18 18 18 Rate Blood Pressure 140/86 abd pain- epi gastric area, soft abd a/p: abd pain- mild offered pt clonidine/vistaril for withdrawal Sx- refused offered pt zantac for abd pain- pt refused pt states he will try mylanta
[2018-10-17] MEDS ORDERED: MAG HYDROX/AL HYDROX/SIMETH 30 ML UNIT-DOSE CUP PO ONE (19:29)
[2018-10-17] MEDS: COLLOIDAL OATMEAL 1 BAR EACH TP PRN (19:44)
[2018-10-17] MEDS: THIAMINE HCL 100 MG TABLET (FP) PO SCH (21:54)
[2018-10-18] MEDS ORDERED: METHADONE 80 MG, METHADONE 20 MG PO SCH (04:08)
[2018-10-18] MEDS ORDERED: METHADONE HCL 40 MG DISPERSABLE TABLET ONE (04:23)
[2018-10-18] MEDS ORDERED: METHADONE HCL 10 MG TABLET ONE (04:23)
[2018-10-18] MEDS: MAG HYDROX/AL HYDROX/SIMETH 30 ML UNIT-DOSE CUP PO PRN ×3 (05:45→16:28)
[2018-10-18] MEDS: BACLOFEN 10 MG TABLET (FP) PO SCH ×3 (05:46→21:18)
[2018-10-18] MEDS: METHADONE 80 MG, METHADONE 20 MG PO SCH (05:46)
[2018-10-18] MEDS: GABAPENTIN 100 MG CAPSULE (FP) PO SCH ×3 (05:46→21:17)
[2018-10-18] MEDS ORDERED: TRIMETHOBENZAMIDE HCL 300 MG CAPSULE PO PRN (09:48)
[2018-10-18] MEDS: PRENATAL VITAMINS W/ FOLIC ACID TABLET (FP) PO SCH (09:49)
[2018-10-18] MEDS: TOLNAFTATE 1% CREAM 15 GM TUBE TP SCH ×2 (09:50→21:18)
--- NOTE | 2018-10-18 10:49 | PN ---
S Progress Note (SOAP) Subjective: c/o abdominal pain and feeling like he will throw up; states he just eat a banana and feels like the food is getting stuck in his throat. HIV positive, does not know CD4 or viral load, not on HIV medications at present time. Received Mylanta this AM Objective: 10/18/18 10:45 Positive bowel sounds all 4 quadrants. Assessment: 10/18/18 10:46 Dyspepsia Plan: Received another dose of Mylanta. Ordered Tigan prn for future feelings of nausea or vomiting. Cannot rule out esophageal thrush based on c/o food feeling stuck. Will continue to monitor.
[2018-10-18] MEDS: THIAMINE HCL 100 MG TABLET (FP) PO SCH (21:16)
[2018-10-19] MEDS ORDERED: METHADONE HCL 10 MG TABLET ONE (03:12)
[2018-10-19] MEDS ORDERED: METHADONE HCL 40 MG DISPERSABLE TABLET ONE (03:13)
[2018-10-19] MEDS: BACLOFEN 10 MG TABLET (FP) PO SCH ×3 (06:05→21:39)
[2018-10-19] MEDS: METHADONE 80 MG, METHADONE 20 MG PO SCH (06:23)
[2018-10-19] MEDS: GABAPENTIN 100 MG CAPSULE (FP) PO SCH ×3 (06:23→21:39)
[2018-10-19] MEDS: MAG HYDROX/AL HYDROX/SIMETH 30 ML UNIT-DOSE CUP PO PRN ×3 (06:23→21:39)
[2018-10-19] MEDS ORDERED: PT OWN MED DRAWER 7, Y5N ONE (08:49)
[2018-10-19] MEDS: PRENATAL VITAMINS W/ FOLIC ACID TABLET (FP) PO SCH (09:50)
[2018-10-19] MEDS: TOLNAFTATE 1% CREAM 15 GM TUBE TP SCH ×2 (09:50→21:39)
[2018-10-19] MEDS: THIAMINE HCL 100 MG TABLET (FP) PO SCH (21:38)
[2018-10-20] MEDS ORDERED: METHADONE HCL 40 MG DISPERSABLE TABLET ONE (02:43)
[2018-10-20] MEDS ORDERED: METHADONE HCL 10 MG TABLET ONE (02:43)
[2018-10-20] MEDS: BACLOFEN 10 MG TABLET (FP) PO SCH (06:19)
[2018-10-20] MEDS: MAG HYDROX/AL HYDROX/SIMETH 30 ML UNIT-DOSE CUP PO PRN ×3 (06:20→22:05)
[2018-10-20] MEDS: GABAPENTIN 100 MG CAPSULE (FP) PO SCH ×3 (06:20→22:05)
[2018-10-20] MEDS: METHADONE 80 MG, METHADONE 20 MG PO SCH (06:20)
[2018-10-20] MEDS: PRENATAL VITAMINS W/ FOLIC ACID TABLET (FP) PO SCH (09:50)
[2018-10-20] MEDS: TOLNAFTATE 1% CREAM 15 GM TUBE TP SCH ×2 (09:52→22:06)
[2018-10-20] MEDS: THIAMINE HCL 100 MG TABLET (FP) PO SCH (22:05)
[2018-10-21] MEDS ORDERED: METHADONE HCL 40 MG DISPERSABLE TABLET ONE (04:24)
[2018-10-21] MEDS ORDERED: METHADONE HCL 10 MG TABLET ONE (04:24)
[2018-10-21] MEDS: METHADONE 80 MG, METHADONE 20 MG PO SCH (06:03)
[2018-10-21] MEDS: GABAPENTIN 100 MG CAPSULE (FP) PO SCH ×3 (06:03→21:11)
[2018-10-21] MEDS: TOLNAFTATE 1% CREAM 15 GM TUBE TP SCH ×2 (10:26→21:12)
[2018-10-21] MEDS: PRENATAL VITAMINS W/ FOLIC ACID TABLET (FP) PO SCH (10:26)
[2018-10-21] MEDS: MAG HYDROX/AL HYDROX/SIMETH 30 ML UNIT-DOSE CUP PO PRN (20:03)
[2018-10-21] MEDS: THIAMINE HCL 100 MG TABLET (FP) PO SCH (21:11)
[2018-10-22] MEDS ORDERED: METHADONE HCL 10 MG TABLET ONE (04:28)
[2018-10-22] MEDS ORDERED: METHADONE HCL 40 MG DISPERSABLE TABLET ONE (04:29)
[2018-10-22] MEDS: METHADONE 80 MG, METHADONE 20 MG PO SCH (06:13)
[2018-10-22] MEDS: GABAPENTIN 100 MG CAPSULE (FP) PO SCH ×3 (06:13→21:13)
[2018-10-22] MEDS: COLLOIDAL OATMEAL 1 BAR EACH TP PRN (07:07)
[2018-10-22] MEDS: TOLNAFTATE 1% CREAM 15 GM TUBE TP SCH ×2 (10:05→21:13)
[2018-10-22] MEDS: PRENATAL VITAMINS W/ FOLIC ACID TABLET (FP) PO SCH (10:05)
[2018-10-22] MEDS: THIAMINE HCL 100 MG TABLET (FP) PO SCH (21:13)
[2018-10-22] MEDS: MELATONIN 5 MG TABLETS PO PRN (21:13)
[2018-10-23] MEDS ORDERED: METHADONE HCL 40 MG DISPERSABLE TABLET ONE (03:20)
[2018-10-23] MEDS ORDERED: METHADONE HCL 10 MG TABLET ONE (03:20)
[2018-10-23] MEDS: METHADONE 80 MG, METHADONE 20 MG PO SCH (06:00)
[2018-10-23] MEDS: GABAPENTIN 100 MG CAPSULE (FP) PO SCH ×3 (06:01→21:44)
[2018-10-23] MEDS: PRENATAL VITAMINS W/ FOLIC ACID TABLET (FP) PO SCH (09:56)
[2018-10-23] MEDS: TOLNAFTATE 1% CREAM 15 GM TUBE TP SCH ×2 (09:56→21:44)
[2018-10-23] MEDS: THIAMINE HCL 100 MG TABLET (FP) PO SCH (21:44)
[2018-10-24] MEDS ORDERED: METHADONE HCL 10 MG TABLET ONE (04:09)
[2018-10-24] MEDS ORDERED: METHADONE HCL 40 MG DISPERSABLE TABLET ONE (04:09)
[2018-10-24] MEDS: GABAPENTIN 100 MG CAPSULE (FP) PO SCH ×3 (05:52→21:53)
[2018-10-24] MEDS: METHADONE 80 MG, METHADONE 20 MG PO SCH (05:52)
[2018-10-24] MEDS: PRENATAL VITAMINS W/ FOLIC ACID TABLET (FP) PO SCH (09:40)
[2018-10-24] MEDS: TOLNAFTATE 1% CREAM 15 GM TUBE TP SCH ×2 (09:41→21:53)
[2018-10-24] MEDS: THIAMINE HCL 100 MG TABLET (FP) PO SCH (21:53)
[2018-10-25] MEDS ORDERED: METHADONE HCL 10 MG TABLET ONE (04:30)
[2018-10-25] MEDS ORDERED: METHADONE HCL 40 MG DISPERSABLE TABLET ONE (04:30)
[2018-10-25] MEDS: METHADONE 80 MG, METHADONE 20 MG PO SCH (05:45)
[2018-10-25] MEDS: GABAPENTIN 100 MG CAPSULE (FP) PO SCH ×3 (05:45→21:36)
[2018-10-25] MEDS: PRENATAL VITAMINS W/ FOLIC ACID TABLET (FP) PO SCH (09:59)
[2018-10-25] MEDS: TOLNAFTATE 1% CREAM 15 GM TUBE TP SCH ×3 (10:00→21:36)
[2018-10-25] MEDS: COLLOIDAL OATMEAL 1 BAR EACH TP PRN (10:36)
[2018-10-25] MEDS: THIAMINE HCL 100 MG TABLET (FP) PO SCH (21:36)
[2018-10-26] MEDS ORDERED: METHADONE HCL 10 MG TABLET ONE (05:59)
[2018-10-26] MEDS ORDERED: METHADONE HCL 40 MG DISPERSABLE TABLET ONE (05:59)
[2018-10-26] MEDS: METHADONE 80 MG, METHADONE 20 MG PO SCH (06:08)
[2018-10-26] MEDS: GABAPENTIN 100 MG CAPSULE (FP) PO SCH ×3 (06:08→21:18)
[2018-10-26] MEDS: PRENATAL VITAMINS W/ FOLIC ACID TABLET (FP) PO SCH (09:48)
[2018-10-26] MEDS ORDERED: PT OWN MED DRAWER 7, Y5N ONE (09:50)
[2018-10-26] MEDS: TOLNAFTATE 1% CREAM 15 GM TUBE TP SCH ×2 (09:50→21:18)
[2018-10-26] MEDS: COLLOIDAL OATMEAL 1 BAR EACH TP PRN (09:51)
[2018-10-26] MEDS: THIAMINE HCL 100 MG TABLET (FP) PO SCH (21:18)
[2018-10-27] MEDS ORDERED: METHADONE HCL 40 MG DISPERSABLE TABLET ONE (04:08)
[2018-10-27] MEDS ORDERED: METHADONE HCL 10 MG TABLET ONE (04:08)
[2018-10-27] MEDS: METHADONE 80 MG, METHADONE 20 MG PO SCH (05:59)
[2018-10-27] MEDS: GABAPENTIN 100 MG CAPSULE (FP) PO SCH ×3 (05:59→21:18)
[2018-10-27] MEDS: PRENATAL VITAMINS W/ FOLIC ACID TABLET (FP) PO SCH (09:41)
[2018-10-27] MEDS ORDERED: PT OWN MED DRAWER 7, Y5N ONE (09:43)
[2018-10-27] MEDS: TOLNAFTATE 1% CREAM 15 GM TUBE TP SCH ×2 (09:43→21:18)
[2018-10-27] MEDS: THIAMINE HCL 100 MG TABLET (FP) PO SCH (21:18)
[2018-10-28] MEDS ORDERED: METHADONE HCL 10 MG TABLET ONE (03:11)
[2018-10-28] MEDS ORDERED: METHADONE HCL 40 MG DISPERSABLE TABLET ONE (03:11)
[2018-10-28] MEDS: GABAPENTIN 100 MG CAPSULE (FP) PO SCH ×3 (06:01→21:32)
[2018-10-28] MEDS: METHADONE 80 MG, METHADONE 20 MG PO SCH (06:01)
[2018-10-28] MEDS: TOLNAFTATE 1% CREAM 15 GM TUBE TP SCH ×2 (09:45→21:32)
[2018-10-28] MEDS: PRENATAL VITAMINS W/ FOLIC ACID TABLET (FP) PO SCH (09:45)
[2018-10-28] MEDS: THIAMINE HCL 100 MG TABLET (FP) PO SCH (21:32)
[2018-10-29] MEDS ORDERED: METHADONE HCL 10 MG TABLET ONE (02:43)
[2018-10-29] MEDS ORDERED: METHADONE HCL 40 MG DISPERSABLE TABLET ONE (02:43)
[2018-10-29] MEDS: COLLOIDAL OATMEAL 1 BAR EACH TP PRN (06:04)
[2018-10-29] MEDS: METHADONE 80 MG, METHADONE 20 MG PO SCH (06:04)
[2018-10-29] MEDS: GABAPENTIN 100 MG CAPSULE (FP) PO SCH ×3 (06:04→21:00)
[2018-10-29 06:46] VITALS: PULSE 64; TEMP 98.2
[2018-10-29] MEDS: TOLNAFTATE 1% CREAM 15 GM TUBE TP SCH ×2 (09:30→21:00)
[2018-10-29] MEDS: PRENATAL VITAMINS W/ FOLIC ACID TABLET (FP) PO SCH (09:30)
[2018-10-29] MEDS: THIAMINE HCL 100 MG TABLET (FP) PO SCH (21:00)
[2018-10-30] MEDS ORDERED: METHADONE HCL 40 MG DISPERSABLE TABLET ONE (04:37)
[2018-10-30] MEDS ORDERED: METHADONE HCL 10 MG TABLET ONE (04:37)
[2018-10-30] MEDS: METHADONE 80 MG, METHADONE 20 MG PO SCH (06:04)
[2018-10-30] MEDS: GABAPENTIN 100 MG CAPSULE (FP) PO SCH (06:04)
[2018-10-30 06:46] VITALS: BP 135/85
[2018-10-30] MEDS: TOLNAFTATE 1% CREAM 15 GM TUBE TP SCH (09:36)
[2018-10-30] MEDS: PRENATAL VITAMINS W/ FOLIC ACID TABLET (FP) PO SCH (09:36)
--- NOTE | 2018-10-30 12:32 | PN ---
[facility] Progress Note Note: REHAB DISCHARGE NOTE: PATIENT COMPLETED REHAB TODAY AND AFTERCARE SCHEDULED FOR TODAY AT [facility] MAINTENANCE PROGRAM. NO CHANGES IN MEDICAL STATUS OR SI/HI REPORTED. PATIENT LEFT UNIT BEFORE BEING SEEN BY PROVIDER. DISCHARGE INSTRUCTIONS PROVIDED BY NURSING STAFF. Vital Signs Temperature 98.2 F 10/30/18 06:42 Pulse Rate 64 10/30/18 06:42 Respiratory Rate 18 10/30/18 06:42 Blood Pressure 135/85 10/30/18 06:42 O2 Sat by Pulse Oximetry (%) Laboratory Tests 10/11/18 10/11/18 10/11/18 06:30 06:30 06:30 WBC 3.6 L RBC 4.47 Hgb 12.9 Hct 39.4 MCV 88.2 MCH 28.9 MCHC 32.7 RDW 15.2 Plt Count 183 MPV 10.0 D Sodium 139 Potassium 4.6 Chloride 105 Carbon Dioxide 31 Anion Gap 3 L BUN 15 Creatinine 1.2 Creat Clearance w eGFR 64.09 Random Glucose 95 Uric Acid Calcium 8.6 Total Bilirubin 0.2 AST 56 H ALT 41 Alkaline Phosphatase 224 H Total Protein 8.0 Albumin 3.3 L Urine Color Urine Appearance Urine pH Ur Specific [place] Urine Protein Urine Glucose (UA) Urine Ketones Urine Blood Urine Nitrite Urine Bilirubin Urine Urobilinogen Ur Leukocyte Esterase Urine WBC (Auto) Urine RBC (Auto) Urine Casts (Auto) U Pathogenic Cast Auto U Epithel Cells (Auto) U Sm Round Cell (Auto) Urine Crystals (Auto) Urine Bacteria (Auto) Calcium Oxalate Crystal Uric Acid Crystals Triple Phos Crystals Amorphous Phosphates Amorphous Urates Amorphous Sediment Hyaline Casts Granular Casts Waxy Casts RBC Casts WBC Casts Urine Mucus Urine Other Urine Trichomonas Urine Yeast (Auto) RPR Titer Nonreactive 10/11/18 10/11/18 10/11/18 12:30 12:30 12:30 WBC RBC Hgb Hct MCV MCH MCHC RDW Plt Count MPV Sodium Potassium Chloride Carbon Dioxide Anion Gap BUN Creatinine Creat Clearance w eGFR Random Glucose Uric Acid Calcium Total Bilirubin AST ALT Alkaline Phosphatase Total Protein Albumin Urine Color Cancelled Cancelled Dk yellow Urine Appearance Cancelled Cancelled Clear Urine pH Cancelled Cancelled 5.0 Ur Specific [place] Cancelled Cancelled 1.029 Urine Protein Cancelled Cancelled Negative Urine Glucose (UA) Cancelled Cancelled Negative Urine Ketones Cancelled Cancelled Trace H Urine Blood Cancelled Cancelled Negative Urine Nitrite Cancelled Cancelled Negative Urine Bilirubin Cancelled Cancelled 1+ H Urine Urobilinogen Cancelled Cancelled 1.0 Ur Leukocyte Esterase Cancelled Cancelled Trace Urine WBC (Auto) Cancelled Cancelled 0 Urine RBC (Auto) Cancelled Cancelled 6 Urine Casts (Auto) Cancelled Cancelled U Pathogenic Cast Auto Cancelled Cancelled U Epithel Cells (Auto) Cancelled Cancelled 0.7 U Sm Round Cell (Auto) Cancelled Cancelled Urine Crystals (Auto) Cancelled Cancelled 3-5 Urine Bacteria (Auto) Cancelled Cancelled 1.008 Calcium Oxalate Crystal Cancelled Uric Acid Crystals Cancelled Triple Phos Crystals Cancelled Amorphous Phosphates Cancelled Amorphous Urates Cancelled Amorphous Sediment Cancelled Hyaline Casts Cancelled Granular Casts Cancelled Waxy Casts Cancelled RBC Casts Cancelled WBC Casts Cancelled Urine Mucus Cancelled Urine Other Cancelled Urine Trichomonas Cancelled Urine Yeast (Auto) Cancelled Cancelled RPR Titer 10/11/18 10/12/18 12:30 08:00 WBC RBC Hgb Hct MCV MCH MCHC RDW Plt Count MPV Sodium Potassium Chloride Carbon Dioxide Anion Gap BUN Creatinine Creat Clearance w eGFR Random Glucose Uric Acid 4.0 Calcium Total Bilirubin AST ALT Alkaline Phosphatase Total Protein Albumin Urine Color Urine Appearance Urine pH Ur Specific [place] Urine Protein Urine Glucose (UA) Urine Ketones Urine Blood Urine Nitrite Urine Bilirubin Urine Urobilinogen Ur Leukocyte Esterase Urine WBC (Auto) Urine RBC (Auto) Urine Casts (Auto) Cancelled U Pathogenic Cast Auto U Epithel Cells (Auto) Cancelled U Sm Round Cell (Auto) Urine Crystals (Auto) Cancelled Urine Bacteria (Auto) Cancelled Calcium Oxalate Crystal Cancelled Uric Acid Crystals Cancelled Triple Phos Crystals Cancelled Amorphous Phosphates Cancelled Amorphous Urates Cancelled Amorphous Sediment Cancelled Hyaline Casts Cancelled Granular Casts Cancelled Waxy Casts Cancelled RBC Casts Cancelled WBC Casts Cancelled Urine Mucus Cancelled Urine Other Cancelled Urine Trichomonas Cancelled Urine Yeast (Auto) Cancelled RPR Titer Ambulatory Orders NK [No Known Home Medication] 04/07/16
== END 2018-10-30 09:50 | disposition home or self-care (01) | DRG 772 ==
LOC: YASAS 11:30 → Y3W 15:14
PROVIDERS: ADMIT Neuromusculoskeletal Medicine & OMM; ATTEND Neuromusculoskeletal Medicine & OMM
PROC: HZ42ZZZ Group Counseling for Substance Abuse Treatment, Cognitive-Behavioral (ICD-10-PCS; principal; 2018-10-10)
DX: F10.230 Alcohol dependence with withdrawal, uncomplicated (principal); F11.20 Opioid dependence, uncomplicated; F13.230 Sedative, hypnotic or anxiolytic dependence with withdrawal, uncomplicated; F17.213 Nicotine dependence, cigarettes, with withdrawal; Z21 Asymptomatic human immunodeficiency virus [HIV] infection status; R10.13 Epigastric pain; B35.3 Tinea pedis; M79.89 Other specified soft tissue disorders; R63.4 Abnormal weight loss; B18.2 Chronic viral hepatitis C
CPT/HCPCS: 36415; 80053; 81003; 81015; 84550; 85027; 86593

== ENCOUNTER 2019-07-30 10:55 | Inpatient (IN) | payer OTHER ==
[2019-07-30 11:42] VITALS: BMI 18.2
--- NOTE | 2019-07-30 12:02 | HP ---
COWS - Scale Resting Pulse: 0= MT 80 or Below Sweatin= Beads of Sweat on Face Restless Observation: 1= Difficult to Sit Still Pupil Size: 0= Normal to Room Light Bone or Joint Aches: 1= Mild Discomfort Runny Nose/ Eye Tearin= Nasal Congestion GI Upset > 30mins: 0= None Tremor Observation: 1= Tremor [place], Not Seen Yawning Observation: 0= None Anxiety or Irritability: 0= None Goose Flesh Skin: 0=Smooth Skin COWS Score: 7 CIWA Score Nausea/Vomitin-No Nausea/No Vomiting Muscle Tremors: 1-None Visible, but [place] Anxiety: 1-Mildly Anxious Agitation: 1-Slight > Activity Paroxysmal Sweats: 4-Forehead w/Sweat Beads Orientation: 0-Oriented Tacttile Disturbances: 0-None Auditory Disturbances: 0-None Visual Disturbances: 0-None Headache: 1-Very Mild (just starting withdrawals due to recent use this morning. ) CIWA-Ar Total Score: 8 - Admission Criteria [facility]ASAS Guidelines: Admission for Medically Managed Detox: Requires at least one of the followin. CIWA greater than 12 2. Seizures within the past 24 hours 3. Delirium tremens within the past 24 hours 4. Hallucinations within the past 24 hours 5. Acute intervention needed for co occurring medical disorder 6. Acute intervention needed for co occurring psychiatric disorder 7. Severe withdrawal that cannot be handled at a lower level of care (continued vomiting, continued diarrhea, abnormal vital signs) requiring intravenous medication and/or fluids 8. Admitting History and Physical - Admission Chief Complaint: "I just relapsed recently 2 weeks ago." History of Present Illness: 49 year old male with history of alcohol dependence with withdrawal. He was last here in detox on 07/2018 and then rehab in 09/2018. He had been abstinent until 2 weeks ago. He doesn't really know why he relapsed. He is here requesting detox from etoh use, reports 1 pint of vodka daily and 6- pk /day, denies blackouts , seizures, + falls while intoxicated, denies injuries to self or others, does not drive, latest use today current RAMIRO 0.028 . He is using heroin : 2 bundles day, first age of use 12 , IVDU in neck , needles from the pharmacy , denies sharing or re-using , + abscess in left leg " a long time ago ", denies OD , latest use 2 days ago , MMTP 3-4 years at [facility], highest dose 100 mg x 18 mo . He denies using narcan. He denies overdoses. He is using cocaine : 150 $ / day IVDU since age 12. He has stopped using benzodiazepine pills. tobacco : 1 ppd now, much more than priorly. PMHX : HIV (dx 1988 RF = [facility]), hep C (dx 1998, no tx , planning to seek tx ), OA back , HIV neuropathy. He is getting primary care in a PMD in [place]. PSHX : appy age 7 PSYch : denies SHx: lives alone , supports himself from welfare , 1 child age 24 - Smoking History Smoking history: Former smoker Have you smoked in the past 12 months: Yes Aproximately how many cigarettes per day: 0 If you are a former smoker, when did you quit?: 2 weeks - Alcohol/Substance Use Hx Alcohol Use: Yes Admission ROS [facility] - HPI Allergies/Adverse Reactions: Allergies Allergy/AdvReac Type Severity Reaction Status Date / Time No Known Allergies Allergy Verified 07/30/19 11:26 Exam Limitations: No Limitations - Ebola screening Have you traveled outside of the country in the last 21 days: No Have you had contact with anyone from an Ebola affected area: No Do you have a fever: No - Review of Systems Constitutional: Chills, Diaphoresis, Unintentional Wgt. Loss EENT: reports: No Symptoms Reported Respiratory: reports: No Symptoms reported Cardiac: reports: No Symptoms Reported GI: reports: No Symptoms Reported : reports: No Symptoms Reported Musculoskeletal: reports: No Symptoms Reported, Joint Pain Integumentary: reports: No Symptoms Reported Neuro: reports: No Symptoms reported Endocrine: reports: No Symptoms Reported Hematology: reports: No Symptoms Reported Psychiatric: reports: Judgement Intact, Mood/Affect Appropiate, Orientated x3 Other Systems: Reviewed and Negative Patient History - Patient Medical History Hx Anemia: No Hx Asthma: No Hx Chronic Obstructive Pulmonary Disease (COPD): No Hx Cancer: No Hx Cardiac Disorders: No Hx Congestive Heart Failure: No Hx Hypertension: No Hx Hypercholesterolemia: No Hx Pacemaker: No HX Cerebrovascular Accident: No Hx Seizures: No Hx Dementia: No Hx Diabetes: No Hx Gastrointestinal Disorders: No Hx Liver Disease: No Hx Genitourinary Disorders: No Hx Sexually Transmitted Disorders: No Hx Renal Disease (ESRD): No Hx Thyroid Disease: No Hx Human Immunodeficiency Virus (HIV): Yes (1988 currently no med) Hx Hepatitis C: Yes Hx Depression: Yes Hx Suicide Attempt: No Hx Bipolar Disorder: No Hx Schizophrenia: No - Patient Surgical History Past Surgical History: Yes Hx Neurologic Surgery: No Hx Cataract Extraction: No Hx Cardiac Surgery: No Hx Lung Surgery: No Hx Breast Surgery: No Hx Breast Biopsy: No Hx Abdominal Surgery: No Hx Appendectomy: Yes (at age 7 yrs old.) Hx Cholecystectomy: No Hx Genitourinary Surgery: No Hx Section: No Hx Orthopedic Surgery: No Anesthesia Reaction: No - PPD History Previous Implant?: Yes Documented Results: Negative w/o proof Implanted On Prior [facility] Admission?: Yes Date: 07/27/18 Results: 0 mm. PPD to be Administered?: Yes - Smoking Cessation Smoking history: Former smoker Have you smoked in the past 12 months: Yes Aproximately how many cigarettes per day: 0 If you are a former smoker, when did you quit?: 2 weeks Cigars Per Day: 0 Hx Chewing Tobacco Use: No Initiated information on smoking cessation: Yes 'Breaking Loose' booklet given: 07/30/19 - Substances abused Alcohol Substance route: Oral Frequency: Daily Amount used: 6-7 beers and 1 pint of wine Age of first use: 12 Date of last use: 07/30/19 Heroin Substance route: Injection Frequency: Daily Amount used: 2 bags Age of first use: 12 Date of last use: 07/30/19 Cocaine Substance route: Oral Frequency: Daily Amount used: $200-300 Age of first use: 12 Date of last use: 07/28/19 Admission Physical Exam [facility] - Vital Signs Vital Signs: Vital Signs - 24 hr 07/30/19 11:35 Temperature 97.1 F L Pulse Rate 67 Respiratory 18 Rate Blood Pressure 112/74 - Physical General Appearance: Yes: Mild Distress, Alcohol on Breath, Irritable, Anxious HEENTM: Yes: EOMI, Hearing grossly Normal, Normal ENT Inspection, Normocephalic , Normal Voice, GRANT, Pharynx Normal, Tm's normal, Other (track franco bilateral neck and oral thrush.) Respiratory: Yes: Chest Non-Tender, Lungs Clear, Normal Breath Sounds, No Respiratory Distress, No Accessory Muscle Use Neck: Yes: No masses,lesions,Nodules, Supple, Trachea in good position Breast: Yes: Within Normal Limits Cardiology: Yes: Regular Rhythm, Regular Rate, S1, S2 Abdominal: Yes: Normal Bowel Sounds, Non Tender, Flat, Soft, Surgical Scar ( appendectomy) Back: Yes: Normal Inspection Musculoskeletal: Yes: full range of Motion, Gait Steady, Pelvis Stable Extremities: Yes: Normal Capillary Refill, Normal Inspection, Normal Range of Motion, Non-Tender 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, Fully Oriented, Alert, Motor Strength 5/5, Normal Mood/Affect, Normal Response Integumentary: Yes: Normal Color, Warm Lymphatic: Yes: Within Normal Limits - Diagnostic (1) Alcohol dependence with uncomplicated withdrawal Current Visit: Yes Status: Acute (2) Weight loss, non-intentional Current Visit: Yes Status: Acute Comment: ensure (3) HIV (human immunodeficiency virus infection) Current Visit: Yes Status: Chronic Qualifiers: HIV symptom status: unspecified Qualified Code(s): B20 - Human immunodeficiency virus [HIV] disease Comment: patient was taking complara "not working" had genotype, follow up with infectious disease physician, currently not on any medication (4) Hepatitis C Current Visit: Yes Status: Chronic Qualifiers: Viral hepatitis chronicity: chronic Hepatic coma status: without hepatic coma Qualified Code(s): B18.2 - Chronic viral hepatitis C (5) Methadone maintenance therapy patient Current Visit: Yes Status: Chronic (6) Nicotine dependence Current Visit: Yes Status: Chronic Qualifiers: Nicotine product type: cigarettes Substance use status: in withdrawal Qualified Code(s): F17.213 - Nicotine dependence, cigarettes, with withdrawal (7) 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
[2019-07-30] MEDS ORDERED: ACETAMINOPHEN 325 MG TABLET (FP) PO PRN ×2 (12:13)
[2019-07-30] MEDS ORDERED: MENTHOL/PHENOL 1 EACH UD MM PRN (12:13)
[2019-07-30] MEDS ORDERED: IBUPROFEN 400 MG TABLET (FP) PO PRN (12:13)
[2019-07-30] MEDS ORDERED: MELATONIN 5 MG TABLETS PO PRN (12:13)
[2019-07-30] MEDS ORDERED: METHOCARBAMOL 500 MG TABLET PO PRN (12:13)
[2019-07-30] MEDS ORDERED: hydrOXYzine PAMOATE 25 MG CAPSULE (FP) PO PRN (12:13)
[2019-07-30] MEDS ORDERED: BISMUTH SUBSALICYLATE 262 MG/15 ML BTL PO PRN (12:13)
[2019-07-30] MEDS ORDERED: MAGNESIUM CITRATE 300 ML BOTTLE PO PRN (12:13)
[2019-07-30] MEDS ORDERED: chlordiazePOXIDE HCL 25 MG CAPSULE PO PRN (12:13)
[2019-07-30] MEDS ORDERED: MAG HYDROX/AL HYDROX/SIMETH 30 ML UNIT-DOSE CUP PO PRN (12:13)
[2019-07-30] MEDS ORDERED: MAGNESIUM HYDROX 2400MG/30ML ORAL SUSPENSION 30 ML CUP PO PRN (12:13)
[2019-07-30] MEDS: chlordiazePOXIDE HCL 25 MG CAPSULE PO SCH ×3 (13:20→22:04)
[2019-07-30 14:49] LABS: HEMATOCRIT 47.8 % (35.4-49); HEMOGLOBIN 15.3 GM/dL (11.7-16.9); MCHC 31.9 g/dl (32.0-35.9); MEAN CELL VOLUME 90.7 fl (80-96); MEAN PLT VOLUME 10.1 fl (7.5-11.1); PLATELET COUNT 169 K/MM3 (134-434); RBC 5.27 M/mm3 (4.00-5.60); RDW 13.6 % (11.9-15.9); WHITE BLOOD COUNT 4.4 K/mm3 (4.0-10.0)
[2019-07-30 16:20] LABS: ALBUMIN 3.5 g/dl (3.4-5.0); BILIRUBIN,TOTAL 0.5 mg/dL (0.2-1); BLOOD UREA NITROGEN 15.9 mg/dL (7-18); CALCIUM 9.2 mg/dL (8.5-10.1); CREATININE 1.1 mg/dL (0.55-1.3); POTASSIUM 4.6 mmol/L (3.5-5.1); TOT PROT 8.7 g/dl (6.4-8.2)
[2019-07-30] MEDS: THIAMINE HCL 100 MG TABLET (FP) PO SCH (22:04)
[2019-07-31] MEDS ORDERED: METHADONE HCL 40 MG DISPERSABLE TABLET ONE (04:02)
[2019-07-31] MEDS ORDERED: METHADONE HCL 10 MG TABLET ONE (04:02)
[2019-07-31] MEDS: chlordiazePOXIDE HCL 25 MG CAPSULE PO SCH ×4 (05:22→22:13)
[2019-07-31] MEDS ORDERED: METHADONE HCL 10 MG TABLET PO SCH ×2 (06:00→08:00)
[2019-07-31] MEDS ORDERED: METHADONE 80 MG, METHADONE 20 MG PO SCH ×2 (06:00→08:10)
--- NOTE | 2019-07-31 09:35 | PN ---
S CIWA - CIWA Score Nausea/Vomitin-Mild Nausea/No Vomiting Muscle Tremors: 2 Anxiety: 4-Mod. Anxious/Guarded Agitation: 3 Paroxysmal Sweats: 2 Orientation: 0-Oriented Tacttile Disturbances: 0-None Auditory Disturbances: 0-None Visual Disturbances: 0-None Headache: 1-Very Mild CIWA-Ar Total Score: 13 S Progress Note (SOAP) Subjective: 49 years old male admitted on 07/30/19 for alcohol withdrawal sx management treating with librium detox regimen reports taking methadone 110 mg po daily due to "missing" days to methadone clinic had methadone 100 mg po 07/30/19 patient tolerated well methadone 110 mg po today Objective: 07/31/19 09:34 Vital Signs Temperature 96.6 F L 07/31/19 09:06 Pulse Rate 60 07/31/19 09:06 Respiratory Rate 18 07/31/19 09:06 Blood Pressure 101/70 07/31/19 09:06 O2 Sat by Pulse Oximetry (%) Laboratory Last Values WBC 4.4 K/mm3 (4.0-10.0) 07/30/19 12:10 RBC 5.27 M/mm3 (4.00-5.60) 07/30/19 12:10 Hgb 15.3 GM/dL (11.7-16.9) 07/30/19 12:10 Hct 47.8 % (35.4-49) D 07/30/19 12:10 MCV 90.7 fl (80-96) 07/30/19 12:10 MCH 29.0 pg (25.7-33.7) 07/30/19 12:10 MCHC 31.9 g/dl (32.0-35.9) L 07/30/19 12:10 RDW 13.6 % (11.9-15.9) D 07/30/19 12:10 Plt Count 169 K/MM3 (134-434) 07/30/19 12:10 MPV 10.1 fl (7.5-11.1) 07/30/19 12:10 Sodium 137 mmol/L (136-145) 07/30/19 12:10 Potassium 4.6 mmol/L (3.5-5.1) 07/30/19 12:10 Chloride 104 mmol/L (98-107) 07/30/19 12:10 Carbon Dioxide 25 mmol/L (21-32) 07/30/19 12:10 Anion Gap 7 MMOL/L (8-16) L 07/30/19 12:10 BUN 15.9 mg/dL (7-18) 07/30/19 12:10 Creatinine 1.1 mg/dL (0.55-1.3) 07/30/19 12:10 Est GFR (CKD-EPI)AfAm 89.61 07/30/19 12:10 Est GFR (CKD-EPI)NonAf 77.32 07/30/19 12:10 Random Glucose 59 mg/dL (74-106) L 07/30/19 12:10 Calcium 9.2 mg/dL (8.5-10.1) 07/30/19 12:10 Total Bilirubin 0.5 mg/dL (0.2-1) 07/30/19 12:10 AST 80 U/L (15-37) H 07/30/19 12:10 ALT 66 U/L (13-61) H 07/30/19 12:10 Alkaline Phosphatase 285 U/L (45-117) H 07/30/19 12:10 Total Protein 8.7 g/dl (6.4-8.2) H 07/30/19 12:10 Albumin 3.5 g/dl (3.4-5.0) 07/30/19 12:10 lab noted Assessment: 07/31/19 09:35 alcohol withdrawal Plan: librium regimen
[2019-07-31] MEDS ORDERED: METHADONE HCL 10 MG TABLET PO ONE ×2 (10:00→10:11)
[2019-07-31] MEDS ORDERED: METHADONE 80 MG, METHADONE 30 MG PO ONE (10:05)
[2019-07-31] MEDS: PRENATAL VITAMINS W/ FOLIC ACID TABLET (FP) PO SCH (10:51)
[2019-07-31] MEDS: NICOTINE 7 MG/24 HOURS TOPICAL PATCH TD SCH (10:52)
[2019-07-31] MEDS: THIAMINE HCL 100 MG TABLET (FP) PO SCH (22:13)
[2019-08-01] MEDS ORDERED: METHADONE HCL 40 MG DISPERSABLE TABLET ONE (04:18)
[2019-08-01] MEDS ORDERED: METHADONE HCL 10 MG TABLET ONE (04:18)
[2019-08-01] MEDS: METHADONE 80 MG, METHADONE 30 MG PO SCH (05:41)
[2019-08-01] MEDS: chlordiazePOXIDE HCL 25 MG CAPSULE PO SCH ×4 (05:41→22:39)
[2019-08-01] MEDS ORDERED: METHADONE HCL 40 MG DISPERSABLE TABLET PO SCH (06:00)
--- NOTE | 2019-08-01 09:21 | PN ---
[facility] CIWA - CIWA Score Nausea/Vomitin-Mild Nausea/No Vomiting Muscle Tremors: 2 Anxiety: 3 Agitation: 1-Slight > Activity Paroxysmal Sweats: 2 Orientation: 0-Oriented Tacttile Disturbances: 0-None Auditory Disturbances: 0-None Visual Disturbances: 0-None Headache: 1-Very Mild CIWA-Ar Total Score: 10 S Progress Note (SOAP) Subjective: 49 years old male admitted on 07/30/19 for alcohol withdrawal sx management treating with librium detox regimen feeling ok today but tired limited conversation with staff Objective: 08/01/19 09:19 Vital Signs Temperature 97.9 F 08/01/19 09:08 Pulse Rate 78 08/01/19 09:08 Respiratory Rate 18 08/01/19 09:08 Blood Pressure 104/62 08/01/19 09:08 O2 Sat by Pulse Oximetry (%) Laboratory Last Values WBC 4.4 K/mm3 (4.0-10.0) 07/30/19 12:10 RBC 5.27 M/mm3 (4.00-5.60) 07/30/19 12:10 Hgb 15.3 GM/dL (11.7-16.9) 07/30/19 12:10 Hct 47.8 % (35.4-49) D 07/30/19 12:10 MCV 90.7 fl (80-96) 07/30/19 12:10 MCH 29.0 pg (25.7-33.7) 07/30/19 12:10 MCHC 31.9 g/dl (32.0-35.9) L 07/30/19 12:10 RDW 13.6 % (11.9-15.9) D 07/30/19 12:10 Plt Count 169 K/MM3 (134-434) 07/30/19 12:10 MPV 10.1 fl (7.5-11.1) 07/30/19 12:10 Sodium 137 mmol/L (136-145) 07/30/19 12:10 Potassium 4.6 mmol/L (3.5-5.1) 07/30/19 12:10 Chloride 104 mmol/L (98-107) 07/30/19 12:10 Carbon Dioxide 25 mmol/L (21-32) 07/30/19 12:10 Anion Gap 7 MMOL/L (8-16) L 07/30/19 12:10 BUN 15.9 mg/dL (7-18) 07/30/19 12:10 Creatinine 1.1 mg/dL (0.55-1.3) 07/30/19 12:10 Est GFR (CKD-EPI)AfAm 89.61 07/30/19 12:10 Est GFR (CKD-EPI)NonAf 77.32 07/30/19 12:10 Random Glucose 59 mg/dL (74-106) L 07/30/19 12:10 Calcium 9.2 mg/dL (8.5-10.1) 07/30/19 12:10 Total Bilirubin 0.5 mg/dL (0.2-1) 07/30/19 12:10 AST 80 U/L (15-37) H 07/30/19 12:10 ALT 66 U/L (13-61) H 07/30/19 12:10 Alkaline Phosphatase 285 U/L (45-117) H 07/30/19 12:10 Total Protein 8.7 g/dl (6.4-8.2) H 07/30/19 12:10 Albumin 3.5 g/dl (3.4-5.0) 07/30/19 12:10 RPR Titer Nonreactive (NONREACTIVE) 07/30/19 12:10 lab noted receiving methadone 110 mg po daily Assessment: 08/01/19 09:20 alcohol withdrawal Plan: librium regimen
[2019-08-01] MEDS: PRENATAL VITAMINS W/ FOLIC ACID TABLET (FP) PO SCH (10:24)
[2019-08-01] MEDS: NICOTINE 7 MG/24 HOURS TOPICAL PATCH TD SCH (10:25)
[2019-08-01] MEDS: THIAMINE HCL 100 MG TABLET (FP) PO SCH (22:39)
[2019-08-02] MEDS ORDERED: chlordiazePOXIDE HCL 10 MG CAPSULE PO PRN
[2019-08-02] MEDS ORDERED: METHADONE HCL 40 MG DISPERSABLE TABLET ONE (04:46)
[2019-08-02] MEDS ORDERED: METHADONE HCL 10 MG TABLET ONE (04:46)
[2019-08-02] MEDS: METHADONE 80 MG, METHADONE 30 MG PO SCH (05:12)
[2019-08-02] MEDS: chlordiazePOXIDE HCL 10 MG CAPSULE PO SCH ×4 (05:12→22:07)
[2019-08-02] MEDS: NICOTINE 7 MG/24 HOURS TOPICAL PATCH TD SCH (10:04)
[2019-08-02] MEDS: PRENATAL VITAMINS W/ FOLIC ACID TABLET (FP) PO SCH (10:04)
--- NOTE | 2019-08-02 10:10 | PN ---
S CIWA - CIWA Score Nausea/Vomitin-No Nausea/No Vomiting Muscle Tremors: 1-None Visible, but [place] Anxiety: 3 Agitation: 0-Normal Activity Paroxysmal Sweats: 2 Orientation: 0-Oriented Tacttile Disturbances: 0-None Auditory Disturbances: 0-None Visual Disturbances: 0-None Headache: 0-None Present CIWA-Ar Total Score: 6 [facility] Progress Note (SOAP) Subjective: 49 years old male admitted on 07/30/19 for alcohol withdrawal sx management treating with librium detox regimen feeling ok today ate breakfast resting in bed encourage to attend behavior and psychosocial therapies while in detox Objective: 08/02/19 10:09 Vital Signs Temperature 98.0 F 08/02/19 09:24 Pulse Rate 60 08/02/19 09:24 Respiratory Rate 18 08/02/19 09:24 Blood Pressure 112/65 08/02/19 09:24 O2 Sat by Pulse Oximetry (%) Laboratory Last Values WBC 4.4 K/mm3 (4.0-10.0) 07/30/19 12:10 RBC 5.27 M/mm3 (4.00-5.60) 07/30/19 12:10 Hgb 15.3 GM/dL (11.7-16.9) 07/30/19 12:10 Hct 47.8 % (35.4-49) D 07/30/19 12:10 MCV 90.7 fl (80-96) 07/30/19 12:10 MCH 29.0 pg (25.7-33.7) 07/30/19 12:10 MCHC 31.9 g/dl (32.0-35.9) L 07/30/19 12:10 RDW 13.6 % (11.9-15.9) D 07/30/19 12:10 Plt Count 169 K/MM3 (134-434) 07/30/19 12:10 MPV 10.1 fl (7.5-11.1) 07/30/19 12:10 Sodium 137 mmol/L (136-145) 07/30/19 12:10 Potassium 4.6 mmol/L (3.5-5.1) 07/30/19 12:10 Chloride 104 mmol/L (98-107) 07/30/19 12:10 Carbon Dioxide 25 mmol/L (21-32) 07/30/19 12:10 Anion Gap 7 MMOL/L (8-16) L 07/30/19 12:10 BUN 15.9 mg/dL (7-18) 07/30/19 12:10 Creatinine 1.1 mg/dL (0.55-1.3) 07/30/19 12:10 Est GFR (CKD-EPI)AfAm 89.61 07/30/19 12:10 Est GFR (CKD-EPI)NonAf 77.32 07/30/19 12:10 Random Glucose 59 mg/dL (74-106) L 07/30/19 12:10 Calcium 9.2 mg/dL (8.5-10.1) 07/30/19 12:10 Total Bilirubin 0.5 mg/dL (0.2-1) 07/30/19 12:10 AST 80 U/L (15-37) H 07/30/19 12:10 ALT 66 U/L (13-61) H 07/30/19 12:10 Alkaline Phosphatase 285 U/L (45-117) H 07/30/19 12:10 Total Protein 8.7 g/dl (6.4-8.2) H 07/30/19 12:10 Albumin 3.5 g/dl (3.4-5.0) 07/30/19 12:10 RPR Titer Nonreactive (NONREACTIVE) 07/30/19 12:10 lab noted Assessment: 08/02/19 10:09 alcohol withdrawal Plan: librium regimen
[2019-08-02] MEDS: THIAMINE HCL 100 MG TABLET (FP) PO SCH (22:07)
[2019-08-03] MEDS ORDERED: METHADONE HCL 10 MG TABLET ONE (03:59)
[2019-08-03] MEDS ORDERED: METHADONE HCL 40 MG DISPERSABLE TABLET ONE (04:00)
[2019-08-03] MEDS: METHADONE 80 MG, METHADONE 30 MG PO SCH (05:43)
[2019-08-03] MEDS: chlordiazePOXIDE HCL 10 MG CAPSULE PO SCH ×2 (05:44→16:49)
[2019-08-03] MEDS: NICOTINE 7 MG/24 HOURS TOPICAL PATCH TD SCH (10:11)
[2019-08-03] MEDS: PRENATAL VITAMINS W/ FOLIC ACID TABLET (FP) PO SCH (10:11)
--- NOTE | 2019-08-03 10:51 | PN ---
[facility] CIWA - CIWA Score Nausea/Vomitin-Mild Nausea/No Vomiting Muscle Tremors: 2 Anxiety: 1-Mildly Anxious Agitation: 1-Slight > Activity Paroxysmal Sweats: 1-Minimal Palms Moist Orientation: 0-Oriented Tacttile Disturbances: 0-None Auditory Disturbances: 0-None Visual Disturbances: 0-None Headache: 0-None Present CIWA-Ar Total Score: 6 [facility] Progress Note (SOAP) Subjective: 49 years old male admitted on 07/30/19 for alcohol withdrawal sx management treating with librium detox, d/c tomorrow O: Vital Signs - 24 hr 08/02/19 08/02/19 08/02/19 13:11 17:47 22:34 Temperature 97.9 F 99.5 F 101.2 F H Pulse Rate 59 L 72 73 Respiratory 18 18 18 Rate Blood Pressure 100/64 104/62 118/74 08/02/19 08/03/19 08/03/19 23:10 00:26 03:30 Temperature 98.8 F Pulse Rate Respiratory 18 18 Rate Blood Pressure 08/03/19 08/03/19 05:50 09:12 Temperature 96.3 F L 96.8 F L Pulse Rate 60 54 L Respiratory 16 16 Rate Blood Pressure 100/61 90/55 L Laboratory Tests 07/30/19 07/30/19 07/30/19 12:10 12:10 12:10 WBC 4.4 RBC 5.27 Hgb 15.3 Hct 47.8 D MCV 90.7 MCH 29.0 MCHC 31.9 L RDW 13.6 D Plt Count 169 MPV 10.1 Sodium 137 Potassium 4.6 Chloride 104 Carbon Dioxide 25 Anion Gap 7 L BUN 15.9 Creatinine 1.1 Est GFR (CKD-EPI)AfAm 89.61 Est GFR (CKD-EPI)NonAf 77.32 Random Glucose 59 L Calcium 9.2 Total Bilirubin 0.5 AST 80 H ALT 66 H Alkaline Phosphatase 285 H Total Protein 8.7 H Albumin 3.5 RPR Titer Nonreactive labs and VS WNL a/p Continue detox protocol- anticipate discharge tomorrow
[2019-08-03] MEDS: THIAMINE HCL 100 MG TABLET (FP) PO SCH (21:47)
[2019-08-04] MEDS ORDERED: chlordiazePOXIDE HCL 10 MG CAPSULE PO ONE (05:00)
[2019-08-04] MEDS ORDERED: METHADONE HCL 10 MG TABLET ONE (05:13)
[2019-08-04] MEDS ORDERED: METHADONE HCL 40 MG DISPERSABLE TABLET ONE (05:13)
[2019-08-04] MEDS: METHADONE 80 MG, METHADONE 30 MG PO SCH (05:46)
[2019-08-04] MEDS: PRENATAL VITAMINS W/ FOLIC ACID TABLET (FP) PO SCH (10:29)
[2019-08-04] MEDS: NICOTINE 7 MG/24 HOURS TOPICAL PATCH TD SCH (10:29)
--- NOTE | 2019-08-04 10:37 | PN ---
[facility] CIWA - CIWA Score Nausea/Vomitin-No Nausea/No Vomiting Muscle Tremors: None Anxiety: 1-Mildly Anxious Agitation: 0-Normal Activity Paroxysmal Sweats: 1-Minimal Palms Moist Orientation: 0-Oriented Tacttile Disturbances: 0-None Auditory Disturbances: 0-None Visual Disturbances: 0-None Headache: 0-None Present CIWA-Ar Total Score: 2 [facility] Progress Note (SOAP) Subjective: C/o mild wildrawal symptoms. Objective: 08/04/19 10:35 Vital Signs 08/04/19 08/04/19 08/04/19 03:30 06:37 09:27 Temperature 97.6 F 97.2 F L Pulse Rate 65 64 Respiratory 18 18 18 Rate Blood Pressure 109/69 109/69 Laboratory Last Values WBC 4.4 K/mm3 (4.0-10.0) 07/30/19 12:10 RBC 5.27 M/mm3 (4.00-5.60) 07/30/19 12:10 Hgb 15.3 GM/dL (11.7-16.9) 07/30/19 12:10 Hct 47.8 % (35.4-49) D 07/30/19 12:10 MCV 90.7 fl (80-96) 07/30/19 12:10 MCH 29.0 pg (25.7-33.7) 07/30/19 12:10 MCHC 31.9 g/dl (32.0-35.9) L 07/30/19 12:10 RDW 13.6 % (11.9-15.9) D 07/30/19 12:10 Plt Count 169 K/MM3 (134-434) 07/30/19 12:10 MPV 10.1 fl (7.5-11.1) 07/30/19 12:10 Sodium 137 mmol/L (136-145) 07/30/19 12:10 Potassium 4.6 mmol/L (3.5-5.1) 07/30/19 12:10 Chloride 104 mmol/L (98-107) 07/30/19 12:10 Carbon Dioxide 25 mmol/L (21-32) 07/30/19 12:10 Anion Gap 7 MMOL/L (8-16) L 07/30/19 12:10 BUN 15.9 mg/dL (7-18) 07/30/19 12:10 Creatinine 1.1 mg/dL (0.55-1.3) 07/30/19 12:10 Est GFR (CKD-EPI)AfAm 89.61 07/30/19 12:10 Est GFR (CKD-EPI)NonAf 77.32 07/30/19 12:10 Random Glucose 59 mg/dL (74-106) L 07/30/19 12:10 Calcium 9.2 mg/dL (8.5-10.1) 07/30/19 12:10 Total Bilirubin 0.5 mg/dL (0.2-1) 07/30/19 12:10 AST 80 U/L (15-37) H 07/30/19 12:10 ALT 66 U/L (13-61) H 07/30/19 12:10 Alkaline Phosphatase 285 U/L (45-117) H 07/30/19 12:10 Total Protein 8.7 g/dl (6.4-8.2) H 07/30/19 12:10 Albumin 3.5 g/dl (3.4-5.0) 07/30/19 12:10 RPR Titer Nonreactive (NONREACTIVE) 07/30/19 12:10 Labs noted. Assessment: 08/04/19 10:35 AOX3, in no acute respiratory distress. Full ROM, ambulating in the unit. Mild withdrawal symptoms. Pt has completed his detox protocol but cannot be discharged today. Pt is on methadone and reports that he can't reach his program today to get his dose for tomorrow. Will keep pt here for one more day and be discharged in AM after he receives his methadone dose. Plan: Continue prn meds. Administer methadone in the morning and discharge home.
--- NOTE | 2019-08-04 15:48 | PN ---
S Progress Note Note: I was informed by the RN that pt got in a verbal altercation with pt ( [id number]). Condition 10 activated. Pt is transferred to [facility] to avoid another episode. Pt is for d/c tomorrow.
[2019-08-04] MEDS: THIAMINE HCL 100 MG TABLET (FP) PO SCH (23:00)
[2019-08-05] MEDS ORDERED: METHADONE HCL 10 MG TABLET ONE (04:44)
[2019-08-05] MEDS ORDERED: METHADONE HCL 40 MG DISPERSABLE TABLET ONE (04:44)
[2019-08-05] MEDS: METHADONE 80 MG, METHADONE 30 MG PO SCH (05:21)
[2019-08-05 09:27] VITALS: BP 96/66; PULSE 59; TEMP 98.1
[2019-08-05] MEDS: PRENATAL VITAMINS W/ FOLIC ACID TABLET (FP) PO SCH (10:05)
[2019-08-05] MEDS: NICOTINE 7 MG/24 HOURS TOPICAL PATCH TD SCH (10:05)
--- NOTE | 2019-08-05 12:47 | DS ---
[facility] Detox Discharge Summary Admission Date: 07/30/19 Discharge Date: 08/05/19 - History Present History: Alcohol Dependence, Opioid Dependence, MMTP Additional Comments: Patient completed detox successfully and is scheduled for discharge today. Patient instructed to follow up with his PCP within 1 week. Patient is stable for discharge today. Pertinent Past History: Hepatitis C HIV - Physical Exam Results Vital Signs: Vital Signs Temperature 98.1 F 08/05/19 09:26 Pulse Rate 59 L 08/05/19 09:26 Respiratory Rate 16 08/05/19 09:26 Blood Pressure 96/66 08/05/19 09:26 O2 Sat by Pulse Oximetry (%) Pertinent Admission Physical Exam Findings: Withdrawal sxs Laboratory Tests 07/30/19 07/30/19 07/30/19 12:10 12:10 12:10 WBC 4.4 RBC 5.27 Hgb 15.3 Hct 47.8 D MCV 90.7 MCH 29.0 MCHC 31.9 L RDW 13.6 D Plt Count 169 MPV 10.1 Sodium 137 Potassium 4.6 Chloride 104 Carbon Dioxide 25 Anion Gap 7 L BUN 15.9 Creatinine 1.1 Est GFR (CKD-EPI)AfAm 89.61 Est GFR (CKD-EPI)NonAf 77.32 Random Glucose 59 L Calcium 9.2 Total Bilirubin 0.5 AST 80 H ALT 66 H Alkaline Phosphatase 285 H Total Protein 8.7 H Albumin 3.5 RPR Titer Nonreactive Labs reviewed: elevated LFTs (most likely due to alcoholism and hepatitis C, instructed to follow up with PCP KLAUDIA for further evaluation) - Treatment Hospital Course: Detox Protocol Followed, Detoxed Safely, Responded well, Discharged Condition Good - Medication Discharge Medications: Ambulatory Orders NK [No Known Home Medication] 04/07/16 - Diagnosis (1) Alcohol dependence with uncomplicated withdrawal Current Visit: Yes Status: Acute (2) HIV (human immunodeficiency virus infection) Current Visit: Yes Status: Chronic Qualifiers: HIV symptom status: unspecified Qualified Code(s): B20 - Human immunodeficiency virus [HIV] disease (3) Hepatitis C Current Visit: Yes Status: Chronic Qualifiers: Viral hepatitis chronicity: chronic Hepatic coma status: without hepatic coma Qualified Code(s): B18.2 - Chronic viral hepatitis C (4) Nicotine dependence Current Visit: Yes Status: Chronic Qualifiers: Nicotine product type: cigarettes Substance use status: in withdrawal Qualified Code(s): F17.213 - Nicotine dependence, cigarettes, with withdrawal (5) Opioid dependence on agonist therapy Current Visit: Yes Status: Acute (6) Elevated LFTs Current Visit: Yes Status: Acute - AMA Did Patient Leave Against Medical Advice: No (Instructed to follow up with PCP in one week)
== END 2019-08-05 13:15 | disposition home or self-care (01) | DRG 773 ==
LOC: YASAS 10:55 → Y3N 12:33 → Y6N 08-04 15:46
PROVIDERS: ADMIT Allergy & Immunology; ATTEND Allergy & Immunology
PROC: HZ2ZZZZ Detoxification Services for Substance Abuse Treatment (ICD-10-PCS; principal; 2019-07-30)
DX: F10.230 Alcohol dependence with withdrawal, uncomplicated (principal); F11.20 Opioid dependence, uncomplicated; F14.20 Cocaine dependence, uncomplicated; F17.210 Nicotine dependence, cigarettes, uncomplicated; F32.9 Major depressive disorder, single episode, unspecified; Z21 Asymptomatic human immunodeficiency virus [HIV] infection status; B18.2 Chronic viral hepatitis C; G62.9 Polyneuropathy, unspecified; R94.5 Abnormal results of liver function studies; R63.4 Abnormal weight loss; Z69.81 Encounter for mental health services for victim of other abuse
CPT/HCPCS: 36415; 80053; 85027; 86593

== ENCOUNTER 2020-03-10 15:49 | Inpatient (IN) | payer OTHER ==
--- NOTE | 2020-03-10 17:30 | HP ---
"COWS - Scale Resting Pulse: 0= [place] 80 or Below Sweatin= Chills/Flushing Restless Observation: 1= Difficult to Sit Still Pupil Size: 0= Normal to Room Light Bone or Joint Aches: 2= Severe Diffuse Aches Runny Nose/ Eye Tearin= None GI Upset > 30mins: 0= None Tremor Observation: 0= None Yawning Observation: 0= None Anxiety or Irritability: 2=Irritable/Anxious Goose Flesh Skin: 0=Smooth Skin COWS Score: 6 CIWA Score Nausea/Vomitin-No Nausea/No Vomiting Muscle Tremors: None Anxiety: 3 Agitation: 3 Paroxysmal Sweats: No Perspiration Orientation: 1-Uncertain about Date Tacttile Disturbances: 0-None Auditory Disturbances: 0-None Visual Disturbances: 0-None Headache: 0-None Present CIWA-Ar Total Score: 7 - Admission Criteria OASAS Guidelines: Admission for Medically Managed Detox: Requires at least one of the followin. CIWA greater than 12 2. Seizures within the past 24 hours 3. Delirium tremens within the past 24 hours 4. Hallucinations within the past 24 hours 5. Acute intervention needed for co occurring medical disorder 6. Acute intervention needed for co occurring psychiatric disorder 7. Severe withdrawal that cannot be handled at a lower level of care (continued vomiting, continued diarrhea, abnormal vital signs) requiring intravenous medication and/or fluids 8. Admitting History and Physical - Smoking History Smoking history: Current some day smoker Have you smoked in the past 12 months: Yes Aproximately how many cigarettes per day: 20 If you are a former smoker, when did you quit?: 2 weeks - Alcohol/Substance Use Hx Alcohol Use: Yes Admission [facility] Allergies/Adverse Reactions: Allergies Allergy/AdvReac Type Severity Reaction Status Date / Time No Known Allergies Allergy Verified 07/30/19 11:26 History of Present Illness: 49 y.o. male requesting detox from opiate use , claims 2 bags /day latest use today , sometimes 5-6 bags via IV in neck ,needles obtained from the exchange . denies OD , First age of use 12 , MMTP Alex Zarco MDD 110 mg , latest 2 weeks ago stopped going 2/2 relapse . planning to return to program after d/c . cocaine : 60-70 $ /day via iV latest use today cannabis -denies etoh - 12 beers and 5 nips /day , reports tremors if not drinking , latset use today prior to coming to this facility . PMHX : HIV , Hep C no Tx non- compliant w/ meds , chronic LBP per pt This report was requested by: Amina García | Reference #: [id number] Others' Prescriptions Patient Name: Manolo Arbaham Date: 1970 Address: [place] [address] Sex: Male Rx Written Rx Dispensed Drug Quantity Days Supply Prescriber Name Payment Method Dispenser 01/18/2020 01/18/2020 chlordiazepoxide 25 mg capsule 10 2 Selene Garcia MD Other [facility], [employer] Patient Name: Manolo Abraham Date: 1970 Address: [address] [place] [address] Sex: Male Rx Written Rx Dispensed Drug Quantity Days Supply Prescriber Name Payment Method Dispenser 02/28/2020 02/28/2020 endocet 10-325 mg tablet 135 30 BioSerafin murrieta MD [employer] [facility] 01/31/2020 01/31/2020 endocet 10-325 mg tablet 135 30 BioSerafin murrieta MD [employer] [facility] 12/20/2019 12/24/2019 endocet 10-325 mg tablet 135 30 BioSerafin murrieta MD [employer] [facility] [employer] [facility] 11/15/2019 11/15/2019 endocet 10-325 mg tablet 135 30 BioSerafin murrieta MD [employer] [facility] 10/17/2019 10/18/2019 endocet 10-325 mg tablet 135 30 Laura Lama [employer] [facility] 10/16/2019 10/16/2019 clonazepam 0.5 mg tablet 60 30 Maximilian Gandhi NP [employer] [facility] 10/16/2019 10/16/2019 zolpidem tartrate 10 mg tablet 30 30 Maximilian Gandhi NP [employer] [facility] 09/21/2019 09/21/2019 clonazepam 1 mg tablet 30 15 Maximilian Gandhi NP [employer] [facility] 09/21/2019 09/21/2019 zolpidem tartrate 10 mg tablet 30 30 Maximilian Gandhi NP [employer] [facility] 09/18/2019 09/18/2019 endocet 10-325 mg tablet 135 30 Sherry Espinal MD [employer] [facility] 08/21/2019 08/21/2019 endocet 10-325 mg tablet 135 30 Sherry Espinal MD [employer] [facility] [employer] [facility] 07/24/2019 07/24/2019 clonazepam 1 mg tablet 60 30 Maximilian Gandhi NP [employer] [facility] 07/24/2019 07/24/2019 zolpidem tartrate 10 mg tablet 30 30 Maximilian Gandhi NP [employer] [facility] 07/24/2019 07/24/2019 oxycodone-acetaminophen 10-325 mg tab 135 30 Sherry Espinal MD [employer] [facility] 06/26/2019 06/26/2019 zolpidem tartrate 10 mg tablet 30 30 Maximilian Gandhi NP [employer] [facility] 06/26/2019 06/26/2019 clonazepam 1 mg tablet 60 30 Maximilian Gandhi NP [employer] [facility] 06/26/2019 06/26/2019 endocet 10-325 mg tablet 135 27 Sherry Espinal MD [employer] [facility] 05/29/2019 05/30/2019 oxycodone-acetaminophen 10-325 mg tablet 135 30 Sherry Espinal MD [employer] [facility] 05/29/2019 05/29/2019 clonazepam 1 mg tablet 60 30 Maximilian Gandhi NP [employer] [facility] 05/29/2019 05/29/2019 zolpidem tartrate 10 mg tablet 30 30 Maximilian Gandhi NP [employer] [facility] 04/26/2019 04/26/2019 oxycodone-acetaminophen 10-325 mg tab 135 30 Laura Lama [employer] [facility] 04/26/2019 04/26/2019 clonazepam 1 mg tablet 60 30 Francis Alfredo [employer] [facility] 04/26/2019 04/26/2019 zolpidem tartrate 10 mg tablet 30 30 Francis Alfredo [employer] [facility] 03/27/2019 04/05/2019 clonazepam 1 mg tablet 60 30 Maximilian Gandhi NP [employer] [facility] 03/27/2019 03/27/2019 oxycodone-acetaminophen 10-325 mg tab 135 27 Sherry Espinal MD [employer] [facility] 03/27/2019 03/27/2019 zolpidem tartrate 10 mg tablet 30 30 Maximilian Gandhi NP [employer] [facility] 02/26/2019 03/12/2019 clonazepam 1 mg tablet 60 30 Maximilian Gandhi NP [employer] [facility] pshx : appy psych : denies Exam Limitations: Clinical Condition - Review of Systems Constitutional: Loss of Appetite EENT: reports: No Symptoms Reported Respiratory: reports: No Symptoms reported Cardiac: reports: No Symptoms Reported GI: reports: Diarrhea, Poor Appetite : reports: No Symptoms Reported Musculoskeletal: reports: Back Pain, Muscle Pain (sahil LE w/d related) Integumentary: reports: See HPI, Other (IV neck) Neuro: reports: No Symptoms reported Endocrine: reports: No Symptoms Reported Hematology: reports: No Symptoms Reported Psychiatric: reports: Agitated, Anxious, Disorientated Patient History - Patient Medical History Hx Anemia: No Hx Asthma: No Hx Chronic Obstructive Pulmonary Disease (COPD): No Hx Cancer: No Hx Cardiac Disorders: No Hx Congestive Heart Failure: No Hx Hypertension: No Hx Hypercholesterolemia: No Hx Pacemaker: No HX Cerebrovascular Accident: No Hx Seizures: No Hx Dementia: No Hx Diabetes: No Hx Gastrointestinal Disorders: No Hx Liver Disease: No Hx Genitourinary Disorders: No Hx Sexually Transmitted Disorders: No Hx Renal Disease (ESRD): No Hx Thyroid Disease: No Hx Human Immunodeficiency Virus (HIV): Yes (1988 currently no med) Hx Hepatitis C: Yes Hx Depression: No Hx Suicide Attempt: No Hx Bipolar Disorder: No Hx Schizophrenia: No - Patient Surgical History Past Surgical History: Yes Hx Neurologic Surgery: No Hx Cataract Extraction: No Hx Cardiac Surgery: No Hx Lung Surgery: No Hx Breast Surgery: No Hx Breast Biopsy: No Hx Abdominal Surgery: No Hx Appendectomy: Yes (at age 7 yrs old.) Hx Cholecystectomy: No Hx Genitourinary Surgery: No Hx Section: No Hx Orthopedic Surgery: No Anesthesia Reaction: No - PPD History Date: 08/01/19 Results: 0 mm. - Smoking Cessation Smoking history: Current some day smoker Have you smoked in the past 12 months: Yes Aproximately how many cigarettes per day: 20 If you are a former smoker, when did you quit?: 2 weeks Cigars Per Day: 0 Hx Chewing Tobacco Use: No Initiated information on smoking cessation: Yes 'Breaking Loose' booklet given: 03/10/20 - Substances abused Alcohol Substance route: Oral Frequency: Daily Amount used: 5 beers Age of first use: 12 Date of last use: 03/10/20 Heroin Substance route: Injection Frequency: Daily Amount used: 7 bags Age of first use: 12 Date of last use: 03/10/20 Cocaine Substance route: Injection Frequency: Daily Amount used: 70 dollar Age of first use: 12 Date of last use: 03/10/20 Admission Physical Exam [facility] - Physical General Appearance: Yes: Disheveled, Mild Distress, Irritable, Anxious, Other (combative, beligerant , cursing and threatening staff .) HEENTM: Yes: EOMI, Hearing grossly Normal, Normocephalic, Normal Voice Respiratory: Yes: Chest Non-Tender, Lungs Clear, Normal Breath Sounds, No Respiratory Distress, No Accessory Muscle Use Neck: Yes: No masses,lesions,Nodules, Trachea in good position Cardiology: Yes: Regular Rhythm, Regular Rate, S1, S2 Abdominal: Yes: Non Tender, Soft Musculoskeletal: Yes: Gait Steady Extremities: Yes: Normal Inspection, Normal Range of Motion, Non-Tender Neurological: Yes: Alert, Motor Strength 5/5, Other (agitated) Integumentary: Yes: Track Rosado (left side of neck and left medial leg), Other ( extensive scarring Left forearm , pt declined to answer questions regarding this) - Addiitonal Findings: behavioral contract . Psychiatry evaluation for impulse disorder. - Diagnostic (1) Opioid dependence Current Visit: Yes Status: Chronic Qualifiers: Substance use status: in withdrawal Qualified Code(s): F11.23 - Opioid dependence with withdrawal (2) Alcohol dependence with uncomplicated withdrawal Current Visit: Yes Status: Chronic (3) Nicotine dependence Current Visit: Yes Status: Chronic Qualifiers: Nicotine product type: cigarettes Breathalyzer - Breathalyzer Breathalyzer: 0.028 Urine Drug Screen - Test Device Lot number: [id number] Expiration date: 04/23/21 - Control Is test valid?: Yes - Results Drug screen NEGATIVE: No Urine drug screen results: CHANCE-Cocaine, FEN-Fentanyl, MOP-Opiates, OXY- Oxycodone, MTD-Methadone Inpatient Rehab Admission - Rehab Decision to Admit Inpatient rehab admission?: No"
[2020-03-10] MEDS ORDERED: MAGNESIUM HYDROX 2400MG/30ML ORAL SUSPENSION 30 ML CUP PO PRN (18:42)
[2020-03-10] MEDS ORDERED: ACETAMINOPHEN 325 MG TABLET (FP) PO PRN ×2 (18:42)
[2020-03-10] MEDS ORDERED: MAGNESIUM CITRATE 300 ML BOTTLE PO PRN (18:42)
[2020-03-10] MEDS ORDERED: MAG HYDROX/AL HYDROX/SIMETH 30 ML UNIT-DOSE CUP PO PRN (18:42)
[2020-03-10] MEDS ORDERED: MELATONIN 5 MG TABLETS PO PRN (18:42)
[2020-03-10] MEDS ORDERED: IBUPROFEN 400 MG TABLET (FP) PO PRN (18:42)
[2020-03-10] MEDS ORDERED: MENTHOL/PHENOL 1 EACH UD MM PRN (18:42)
[2020-03-10] MEDS ORDERED: BISMUTH SUBSALICYLATE 524 MG/30 ML UD PO PRN (18:42)
[2020-03-10] MEDS ORDERED: METHOCARBAMOL 500 MG TABLET PO PRN (18:42)
[2020-03-10] MEDS ORDERED: METHADONE HCL 10 MG TABLET (FOR DETOX USE ONLY) PO ONE (18:45)
[2020-03-10] MEDS ORDERED: diazePAM 5 MG TABLET PO PRN (18:45)
[2020-03-10] MEDS ORDERED: diazePAM 5 MG TABLET PO ONE (18:45)
[2020-03-10] MEDS ORDERED: cloNIDine HCL 0.1 MG TABLET PO PRN (18:45)
[2020-03-10 18:52] VITALS: BMI 19.4
[2020-03-10] MEDS ORDERED: chlordiazePOXIDE HCL 10 MG CAPSULE PO PRN (19:38)
[2020-03-10] MEDS: THIAMINE HCL 100 MG TABLET (FP) PO SCH (21:05)
[2020-03-10] MEDS: chlordiazePOXIDE HCL 25 MG CAPSULE PO SCH (21:05)
[2020-03-10] MEDS: BACITRACIN 15 GM TUBE TOPICAL OINTMENT TP SCH (21:07)
[2020-03-10] MEDS ORDERED: diazePAM 5 MG TABLET PO SCH (22:00)
[2020-03-11] MEDS: chlordiazePOXIDE HCL 25 MG CAPSULE PO SCH ×4 (06:19→22:28)
--- NOTE | 2020-03-11 09:09 | EKG ---
Test Reason : Blood Pressure : / mmHG Vent. Rate : 069 BPM Atrial Rate : 069 BPM P-R Int : 132 ms QRS Dur : 078 ms QT Int : 396 ms P-R-T Axes : 022 010 056 degrees QTc Int : 424 ms NORMAL SINUS RHYTHM NORMAL ECG NO PREVIOUS ECGS AVAILABLE Confirmed by Jalen Bernard MD ([id number]) on 03/11/2020 9:09:00 AM Referred By: Confirmed By:Jalen Bernard MD
[2020-03-11] MEDS ORDERED: METHADONE HCL 5 MG TABLET (FOR DETOX USE ONLY) PO ONE (10:00)
[2020-03-11] MEDS: BACITRACIN 15 GM TUBE TOPICAL OINTMENT TP SCH ×2 (10:48→22:29)
[2020-03-11] MEDS: PRENATAL VITAMINS W/ FOLIC ACID TABLET (FP) PO SCH (10:49)
--- NOTE | 2020-03-11 10:53 | PN ---
S CIWA - CIWA Score Nausea/Vomitin-No Nausea/No Vomiting Muscle Tremors: 4-Moderate,w/Arms Extend Anxiety: 3 Agitation: 4-Moderately Restless Paroxysmal Sweats: 3 Orientation: 0-Oriented Tacttile Disturbances: 0-None Auditory Disturbances: 0-None Visual Disturbances: 0-None Headache: 0-None Present CIWA-Ar Total Score: 14 BHS Progress Note (SOAP) Subjective: sweats shakes body aches interrupted sleep irritable agitation why did the doctor start me on such a low dose of librium. I also belong to a methadone program and missed two weeks and I need my methadone. Objective: 03/11/20 10:55 Vital Signs Temperature 97.8 F 03/11/20 06:08 Pulse Rate 67 03/11/20 06:08 Respiratory Rate 18 03/11/20 06:08 Blood Pressure 142/87 03/11/20 06:08 O2 Sat by Pulse Oximetry (%) 100 03/11/20 06:08 labs pending aaox3 ambulating no acute distress Assessment: 03/11/20 11:38 withdrawals Plan: continue detox with librium methadone verified and ordered increase fluids
[2020-03-11] MEDS ORDERED: METHADONE HCL 10 MG TABLET PO ONE ×2 (10:57→12:00)
--- NOTE | 2020-03-11 12:23 | PN ---
S Progress Note Note: Patient was approached at bedside. Told machine sign writer:" I don't need to see a psychiatrist"
[2020-03-11 13:06] LABS: HEMATOCRIT 35.3 % (35.4-49); HEMOGLOBIN 11.7 GM/dL (11.7-16.9); MCH 29.8 pg (25.7-33.7); MCHC 33.1 g/dl (32.0-35.9); MEAN CELL VOLUME 89.8 fl (80-96); MEAN PLT VOLUME 9.6 fl (7.5-11.1); PLATELET COUNT 154 K/MM3 (134-434); RBC 3.93 M/mm3 (4.00-5.60); RDW 15.8 % (11.9-15.9); WHITE BLOOD COUNT 3.9 K/mm3 (4.0-10.0)
[2020-03-11 13:08] LABS: ALBUMIN 2.6 g/dl (3.4-5.0); BILIRUBIN,TOTAL 0.6 mg/dL (0.2-1); BLOOD UREA NITROGEN 8.3 mg/dL (7-18); CALCIUM 8.9 mg/dL (8.5-10.1); CREATININE 0.8 mg/dL (0.55-1.3); POTASSIUM 3.8 mmol/L (3.5-5.1)
[2020-03-11] MEDS ORDERED: BACITRACIN 0.9 GM PACKET ONE (21:00)
[2020-03-11] MEDS: THIAMINE HCL 100 MG TABLET (FP) PO SCH (22:28)
[2020-03-12] MEDS ORDERED: chlordiazePOXIDE 5 MG CAPSULE PO SCH (05:00)
[2020-03-12] MEDS: METHADONE HCL 10 MG TABLET PO SCH (05:43)
[2020-03-12] MEDS: chlordiazePOXIDE HCL 25 MG CAPSULE PO SCH ×3 (05:43→17:51)
[2020-03-12] MEDS ORDERED: diazePAM 5 MG TABLET PO SCH (06:00)
[2020-03-12] MEDS ORDERED: METHADONE HCL 10 MG TABLET (FOR DETOX USE ONLY) PO ONE (10:00)
[2020-03-12] MEDS: BACITRACIN 15 GM TUBE TOPICAL OINTMENT TP SCH (10:02)
[2020-03-12] MEDS: PRENATAL VITAMINS W/ FOLIC ACID TABLET (FP) PO SCH (10:04)
--- NOTE | 2020-03-12 10:53 | PN ---
S CIWA - CIWA Score Nausea/Vomitin-No Nausea/No Vomiting Muscle Tremors: 3 Anxiety: 2 Agitation: 2 Paroxysmal Sweats: 2 Orientation: 0-Oriented Tacttile Disturbances: 0-None Auditory Disturbances: 0-None Visual Disturbances: 0-None Headache: 0-None Present CIWA-Ar Total Score: 9 BHS Progress Note (SOAP) Subjective: sweats anxiety interrupted sleep body aches Objective: 03/12/20 10:50 Vital Signs Temperature 98 F 03/12/20 06:03 Pulse Rate 72 03/12/20 06:03 Respiratory Rate 18 03/12/20 06:03 Blood Pressure 126/88 03/12/20 06:03 O2 Sat by Pulse Oximetry (%) 96 03/12/20 06:03 Laboratory Tests 03/10/20 03/11/20 03/11/20 18:59 08:30 08:30 WBC 3.9 L RBC 3.93 L Hgb 11.7 Hct 35.3 L D MCV 89.8 MCH 29.8 MCHC 33.1 RDW 15.8 D Plt Count 154 MPV 9.6 Sodium Potassium Chloride Carbon Dioxide Anion Gap BUN Creatinine Est GFR (CKD-EPI)AfAm Est GFR (CKD-EPI)NonAf Random Glucose Calcium Total Bilirubin AST ALT Alkaline Phosphatase Total Protein Albumin Syphilis Serology Non-reactive COVID-19 ([facility]) Not detected 03/11/20 08:30 WBC RBC Hgb Hct MCV MCH MCHC RDW Plt Count MPV Sodium 139 Potassium 3.8 Chloride 105 Carbon Dioxide 28 Anion Gap 6 L BUN 8.3 Creatinine 0.8 Est GFR (CKD-EPI)AfAm 119.88 Est GFR (CKD-EPI)NonAf 103.43 Random Glucose 87 Calcium 8.9 Total Bilirubin 0.6 AST 52 H ALT 36 Alkaline Phosphatase 206 H Total Protein 7.0 Albumin 2.6 L Syphilis Serology COVID-19 ([facility]) aaox3 ambulating no acute distress increase fluids Assessment: 03/12/20 10:52 withdrawal sx Plan: continue detox increase fluids
[2020-03-12] MEDS ORDERED: ONDANSETRON *ODT* 4 MG TABLET SL PRN (12:11)
[2020-03-12] MEDS: chlordiazePOXIDE HCL 25 MG CAPSULE PO PRN ×2 (13:53→21:33)
[2020-03-12] MEDS: THIAMINE HCL 100 MG TABLET (FP) PO SCH (21:33)
[2020-03-13] MEDS ORDERED: chlordiazePOXIDE HCL 10 MG CAPSULE PO PRN
[2020-03-13] MEDS: BACITRACIN 15 GM TUBE TOPICAL OINTMENT TP SCH ×3 (00:04→22:39)
[2020-03-13] MEDS ORDERED: chlordiazePOXIDE HCL 10 MG CAPSULE PO SCH (05:00)
[2020-03-13] MEDS: METHADONE HCL 10 MG TABLET PO SCH (05:10)
[2020-03-13] MEDS: chlordiazePOXIDE HCL 25 MG CAPSULE PO SCH ×4 (05:11→22:39)
[2020-03-13] MEDS ORDERED: METHADONE HCL 5 MG TABLET (FOR DETOX USE ONLY) PO ONE (06:00)
[2020-03-13] MEDS ORDERED: diazePAM 5 MG TABLET PO ONE (06:00)
[2020-03-13] MEDS: PRENATAL VITAMINS W/ FOLIC ACID TABLET (FP) PO SCH (10:24)
--- NOTE | 2020-03-13 13:06 | PN ---
S CIWA - CIWA Score Nausea/Vomitin-No Nausea/No Vomiting Muscle Tremors: 2 Anxiety: 2 Agitation: 2 Paroxysmal Sweats: 1-Minimal Palms Moist Orientation: 0-Oriented Tacttile Disturbances: 0-None Auditory Disturbances: 0-None Visual Disturbances: 0-None Headache: 0-None Present CIWA-Ar Total Score: 7 BHS Progress Note (SOAP) Subjective: tired sweats otherwise feeling better Objective: 03/13/20 13:05 Vital Signs Temperature 98.4 F 03/13/20 08:58 Pulse Rate 62 03/13/20 08:58 Respiratory Rate 17 03/13/20 08:58 Blood Pressure 103/53 L 03/13/20 08:58 O2 Sat by Pulse Oximetry (%) 96 03/13/20 07:03 Laboratory Tests 03/10/20 03/11/20 03/11/20 18:59 08:30 08:30 WBC 3.9 L RBC 3.93 L Hgb 11.7 Hct 35.3 L D MCV 89.8 MCH 29.8 MCHC 33.1 RDW 15.8 D Plt Count 154 MPV 9.6 Sodium Potassium Chloride Carbon Dioxide Anion Gap BUN Creatinine Est GFR (CKD-EPI)AfAm Est GFR (CKD-EPI)NonAf Random Glucose Calcium Total Bilirubin AST ALT Alkaline Phosphatase Total Protein Albumin Syphilis Serology Non-reactive COVID-19 ([facility]) Not detected 03/11/20 08:30 WBC RBC Hgb Hct MCV MCH MCHC RDW Plt Count MPV Sodium 139 Potassium 3.8 Chloride 105 Carbon Dioxide 28 Anion Gap 6 L BUN 8.3 Creatinine 0.8 Est GFR (CKD-EPI)AfAm 119.88 Est GFR (CKD-EPI)NonAf 103.43 Random Glucose 87 Calcium 8.9 Total Bilirubin 0.6 AST 52 H ALT 36 Alkaline Phosphatase 206 H Total Protein 7.0 Albumin 2.6 L Syphilis Serology COVID-19 ([facility]) labs noted aaox3 ambulating no acute distress Assessment: 03/13/20 13:06 withdrawal sx Plan: continue detox increase fluids
[2020-03-13] MEDS: THIAMINE HCL 100 MG TABLET (FP) PO SCH (22:39)
[2020-03-14] MEDS ORDERED: chlordiazePOXIDE HCL 10 MG CAPSULE PO PRN
[2020-03-14] MEDS ORDERED: chlordiazePOXIDE HCL 10 MG CAPSULE PO ONE (05:00)
[2020-03-14] MEDS: METHADONE HCL 10 MG TABLET PO SCH (05:17)
[2020-03-14] MEDS: chlordiazePOXIDE HCL 10 MG CAPSULE PO SCH ×2 (05:18→10:26)
--- NOTE | 2020-03-14 10:13 | PN ---
[facility] CIWA - CIWA Score Nausea/Vomitin-Mild Nausea/No Vomiting Muscle Tremors: 2 Anxiety: 3 Agitation: 4-Moderately Restless Paroxysmal Sweats: No Perspiration Orientation: 0-Oriented Tacttile Disturbances: 0-None Auditory Disturbances: 0-None Visual Disturbances: 0-None Headache: 1-Very Mild CIWA-Ar Total Score: 11 S Progress Note (SOAP) Subjective: pt states not eating well- not sure why, says he takes 2-3 bites and feels full. Would like additional vitamins O: Vital Signs - 24 hr 03/13/20 03/13/20 03/13/20 12:57 17:37 20:36 Temperature 97.7 F 97.0 F L 98.4 F Pulse Rate 62 61 68 Respiratory 16 18 18 Rate Blood Pressure 110/64 104/52 L 108/67 O2 Sat by Pulse 98 96 Oximetry (%) 03/14/20 03/14/20 04:50 09:03 Temperature 97.5 F L 98.0 F Pulse Rate 76 75 Respiratory 18 18 Rate Blood Pressure 118/74 102/64 O2 Sat by Pulse 96 Oximetry (%) Laboratory Tests 03/10/20 03/11/20 03/11/20 18:59 08:30 08:30 WBC 3.9 L RBC 3.93 L Hgb 11.7 Hct 35.3 L D MCV 89.8 MCH 29.8 MCHC 33.1 RDW 15.8 D Plt Count 154 MPV 9.6 Sodium Potassium Chloride Carbon Dioxide Anion Gap BUN Creatinine Est GFR (CKD-EPI)AfAm Est GFR (CKD-EPI)NonAf Random Glucose Calcium Total Bilirubin AST ALT Alkaline Phosphatase Total Protein Albumin Syphilis Serology Non-reactive COVID-19 ([facility]) Not detected 03/11/20 08:30 WBC RBC Hgb Hct MCV MCH MCHC RDW Plt Count MPV Sodium 139 Potassium 3.8 Chloride 105 Carbon Dioxide 28 Anion Gap 6 L BUN 8.3 Creatinine 0.8 Est GFR (CKD-EPI)AfAm 119.88 Est GFR (CKD-EPI)NonAf 103.43 Random Glucose 87 Calcium 8.9 Total Bilirubin 0.6 AST 52 H ALT 36 Alkaline Phosphatase 206 H Total Protein 7.0 Albumin 2.6 L Syphilis Serology COVID-19 ([facility]) low albumin anemia with high RDW a/p: continue alcohol detox protocol continue methadone Added Vit B12 for anemia and high RDW nutritional consult for suggestions re diet
[2020-03-14] MEDS: PRENATAL VITAMINS W/ FOLIC ACID TABLET (FP) PO SCH (10:26)
[2020-03-14] MEDS: BACITRACIN 15 GM TUBE TOPICAL OINTMENT TP SCH ×2 (10:26→22:16)
[2020-03-14] MEDS: CYANOCOBALAMIN 1,000 MCG TABLET (FP) PO SCH (10:27)
[2020-03-14] MEDS: LORazepam 0.5 MG TABLET PO PRN ×2 (17:21→22:16)
[2020-03-14] MEDS: THIAMINE HCL 100 MG TABLET (FP) PO SCH (22:15)
[2020-03-15] MEDS ORDERED: chlordiazePOXIDE HCL 10 MG CAPSULE PO SCH (05:00)
[2020-03-15] MEDS: METHADONE HCL 10 MG TABLET PO SCH (05:48)
[2020-03-15] MEDS: LORazepam 0.5 MG TABLET PO SCH ×4 (05:50→22:20)
[2020-03-15] MEDS: BACITRACIN 15 GM TUBE TOPICAL OINTMENT TP SCH ×2 (14:07→22:20)
[2020-03-15] MEDS: PRENATAL VITAMINS W/ FOLIC ACID TABLET (FP) PO SCH (14:07)
[2020-03-15] MEDS: CYANOCOBALAMIN 1,000 MCG TABLET (FP) PO SCH (14:07)
--- NOTE | 2020-03-15 14:53 | PN ---
[facility] CIWA - CIWA Score Nausea/Vomitin-No Nausea/No Vomiting Muscle Tremors: 2 Anxiety: 2 Agitation: 1-Slight > Activity Paroxysmal Sweats: 1-Minimal Palms Moist Orientation: 0-Oriented Tacttile Disturbances: 0-None Auditory Disturbances: 0-None Visual Disturbances: 0-None Headache: 0-None Present CIWA-Ar Total Score: 6 BHS Progress Note (SOAP) Subjective: Complaints of tiredness, mild anxiety and tremors Objective: 03/15/20 14:52 Vital Signs 03/15/20 09:07 Temperature 97.7 F Pulse Rate 68 Respiratory 19 Rate Blood Pressure 106/59 L O2 Sat by Pulse 97 Oximetry (%) Laboratory Last Values WBC 3.9 K/mm3 (4.0-10.0) L 03/11/20 08:30 RBC 3.93 M/mm3 (4.00-5.60) L 03/11/20 08:30 Hgb 11.7 GM/dL (11.7-16.9) 03/11/20 08:30 Hct 35.3 % (35.4-49) L D 03/11/20 08:30 MCV 89.8 fl (80-96) 03/11/20 08:30 MCH 29.8 pg (25.7-33.7) 03/11/20 08:30 MCHC 33.1 g/dl (32.0-35.9) 03/11/20 08:30 RDW 15.8 % (11.9-15.9) D 03/11/20 08:30 Plt Count 154 K/MM3 (134-434) 03/11/20 08:30 MPV 9.6 fl (7.5-11.1) 03/11/20 08:30 Sodium 139 mmol/L (136-145) 03/11/20 08:30 Potassium 3.8 mmol/L (3.5-5.1) 03/11/20 08:30 Chloride 105 mmol/L (98-107) 03/11/20 08:30 Carbon Dioxide 28 mmol/L (21-32) 03/11/20 08:30 Anion Gap 6 MMOL/L (8-16) L 03/11/20 08:30 BUN 8.3 mg/dL (7-18) 03/11/20 08:30 Creatinine 0.8 mg/dL (0.55-1.3) 03/11/20 08:30 Est GFR (CKD-EPI)AfAm 119.88 03/11/20 08:30 Est GFR (CKD-EPI)NonAf 103.43 03/11/20 08:30 Random Glucose 87 mg/dL (74-106) 03/11/20 08:30 Calcium 8.9 mg/dL (8.5-10.1) 03/11/20 08:30 Total Bilirubin 0.6 mg/dL (0.2-1) 03/11/20 08:30 AST 52 U/L (15-37) H 03/11/20 08:30 ALT 36 U/L (13-61) 03/11/20 08:30 Alkaline Phosphatase 206 U/L (45-117) H 03/11/20 08:30 Total Protein 7.0 g/dl (6.4-8.2) 03/11/20 08:30 Albumin 2.6 g/dl (3.4-5.0) L 03/11/20 08:30 Syphilis Serology Non-reactive (NONREACTIVE) 03/11/20 08:30 COVID-19 ([facility]) Not detected (Not Detected) 03/10/20 18:59 Labs noted. Assessment: 03/15/20 14:52 Alert and oriented x 3, in no acute respiratory distress. Full ROM, ambulating in the unit without assistance. Mild withdrawal symptoms. for discharge in AM. Plan: Continue detox protocol. Discharge in AM.
[2020-03-15] MEDS: THIAMINE HCL 100 MG TABLET (FP) PO SCH (22:20)
[2020-03-16] MEDS ORDERED: LORazepam 0.5 MG TABLET PO ONE (05:00)
[2020-03-16] MEDS ORDERED: chlordiazePOXIDE HCL 10 MG CAPSULE PO ONE (05:00)
[2020-03-16] MEDS: METHADONE HCL 10 MG TABLET PO SCH (05:54)
--- NOTE | 2020-03-16 10:10 | DS ---
[facility] Detox Discharge Summary Admission Date: 03/10/20 Discharge Date: 03/16/20 - History Present History: Alcohol Dependence, Cannabis Dependence, Cocaine Dependence, Sedative Dependence, MMTP Additional Comments: Patient was seen and examined at bedside. Alert and oriented x 3, in no acute respiratory distress. Skin warm to touch. Full ROM, ambulatory without assistance. Detox protocol completed, stable for discharge today. Pertinent Past History: History of HIV+, Hep C ( not treated), alcohol, cocaine, cannabis, nicotine and heroin use disorder. - Physical Exam Results Vital Signs: Vital Signs Temperature 97.5 F L 03/16/20 05:49 Pulse Rate 80 03/16/20 05:49 Respiratory Rate 16 03/16/20 05:49 Blood Pressure 113/69 03/16/20 05:49 O2 Sat by Pulse Oximetry (%) 97 03/16/20 05:49 Vital Signs 03/16/20 05:49 Temperature 97.5 F L Pulse Rate 80 Respiratory 16 Rate Blood Pressure 113/69 O2 Sat by Pulse 97 Oximetry (%) Laboratory Last Values WBC 3.9 K/mm3 (4.0-10.0) L 03/11/20 08:30 RBC 3.93 M/mm3 (4.00-5.60) L 03/11/20 08:30 Hgb 11.7 GM/dL (11.7-16.9) 03/11/20 08:30 Hct 35.3 % (35.4-49) L D 03/11/20 08:30 MCV 89.8 fl (80-96) 03/11/20 08:30 MCH 29.8 pg (25.7-33.7) 03/11/20 08:30 MCHC 33.1 g/dl (32.0-35.9) 03/11/20 08:30 RDW 15.8 % (11.9-15.9) D 03/11/20 08:30 Plt Count 154 K/MM3 (134-434) 03/11/20 08:30 MPV 9.6 fl (7.5-11.1) 03/11/20 08:30 Sodium 139 mmol/L (136-145) 03/11/20 08:30 Potassium 3.8 mmol/L (3.5-5.1) 03/11/20 08:30 Chloride 105 mmol/L (98-107) 03/11/20 08:30 Carbon Dioxide 28 mmol/L (21-32) 03/11/20 08:30 Anion Gap 6 MMOL/L (8-16) L 03/11/20 08:30 BUN 8.3 mg/dL (7-18) 03/11/20 08:30 Creatinine 0.8 mg/dL (0.55-1.3) 03/11/20 08:30 Est GFR (CKD-EPI)AfAm 119.88 03/11/20 08:30 Est GFR (CKD-EPI)NonAf 103.43 03/11/20 08:30 Random Glucose 87 mg/dL (74-106) 03/11/20 08:30 Calcium 8.9 mg/dL (8.5-10.1) 03/11/20 08:30 Total Bilirubin 0.6 mg/dL (0.2-1) 03/11/20 08:30 AST 52 U/L (15-37) H 03/11/20 08:30 ALT 36 U/L (13-61) 03/11/20 08:30 Alkaline Phosphatase 206 U/L (45-117) H 03/11/20 08:30 Total Protein 7.0 g/dl (6.4-8.2) 03/11/20 08:30 Albumin 2.6 g/dl (3.4-5.0) L 03/11/20 08:30 Syphilis Serology Non-reactive (NONREACTIVE) 03/11/20 08:30 COVID-19 (CHEVY) Not detected (Not Detected) 03/10/20 18:59 Labs reviewed. Pertinent Admission Physical Exam Findings: withdrawal symptoms. - Treatment Hospital Course: Detox Protocol Followed, Detoxed Safely, Responded well, Discharged Condition Good - Medication Discharge Medications: Ambulatory Orders NK [No Known Home Medication] 04/07/16 - Diagnosis (1) Alcohol dependence with uncomplicated withdrawal Current Visit: Yes Status: Acute (2) Nicotine dependence Current Visit: Yes Status: Chronic Qualifiers: Nicotine product type: cigarettes (3) Opioid dependence Current Visit: Yes Status: Chronic Qualifiers: Substance use status: in withdrawal Qualified Code(s): F11.23 - Opioid dependence with withdrawal (4) Opioid dependence on agonist therapy Current Visit: No Status: Chronic (5) Cocaine dependence Current Visit: No Status: Chronic Qualifiers: Substance use status: uncomplicated Qualified Code(s): F14.20 - Cocaine dependence, uncomplicated (6) HIV (human immunodeficiency virus infection) Current Visit: No Status: Chronic Qualifiers: HIV symptom status: unspecified Qualified Code(s): B20 - Human immunodeficiency virus [HIV] disease (7) Hepatitis C Current Visit: No Status: Chronic Qualifiers: Viral hepatitis chronicity: chronic Hepatic coma status: without hepatic coma Qualified Code(s): B18.2 - Chronic viral hepatitis C - AMA Did Patient Leave Against Medical Advice: No
[2020-03-16 10:12] VITALS: BP 112/71; PULSE 77; TEMP 97.7
== END 2020-03-16 10:20 | disposition home or self-care (01) | DRG 773 ==
LOC: YASAS 15:49 → Y6N 18:48
PROVIDERS: ADMIT Allergy & Immunology; ATTEND Allergy & Immunology
PROC: HZ2ZZZZ Detoxification Services for Substance Abuse Treatment (ICD-10-PCS; principal; 2020-03-10)
DX: F10.230 Alcohol dependence with withdrawal, uncomplicated (principal); F11.23 Opioid dependence with withdrawal; F14.20 Cocaine dependence, uncomplicated; F12.20 Cannabis dependence, uncomplicated; F17.210 Nicotine dependence, cigarettes, uncomplicated; Z21 Asymptomatic human immunodeficiency virus [HIV] infection status; E88.09 Other disorders of plasma-protein metabolism, not elsewhere classified; D64.9 Anemia, unspecified; B18.2 Chronic viral hepatitis C; M54.5 Low back pain; G89.29 Other chronic pain; Z68.1 Body mass index [BMI] 19.9 or less, adult
CPT/HCPCS: 36415; 80053; 85027; 86780; 93005; 93010; Q0162; U0003

== ENCOUNTER 2021-12-02 15:25 | Inpatient (IN) | payer OTHER ==
[2021-12-02 16:58] VITALS: BMI 19.0
[2021-12-02] MEDS ORDERED: IBUPROFEN 400 MG TABLET (FP) PO PRN (17:42)
[2021-12-02] MEDS ORDERED: MAGNESIUM HYDROX 2400MG/30ML ORAL SUSPENSION 30 ML CUP PO PRN (17:42)
[2021-12-02] MEDS ORDERED: MAG HYDROX/AL HYDROX/SIMETH 30 ML UNIT-DOSE CUP PO PRN (17:42)
[2021-12-02] MEDS ORDERED: LOPERAMIDE HCL 2 MG CAPSULE PO PRN (17:42)
[2021-12-02] MEDS ORDERED: MELATONIN 5 MG TABLETS PO PRN (17:42)
[2021-12-02] MEDS ORDERED: ACETAMINOPHEN 325 MG TABLET (FP) PO PRN ×2 (17:42)
[2021-12-02] MEDS ORDERED: P-EPHED 60MG/TRIPROLIDI 2.5MG TABLET PO PRN (17:42)
[2021-12-02] MEDS ORDERED: BISMUTH SUBSALICYLATE 524 MG/30 ML PO PRN (17:42)
[2021-12-02] MEDS ORDERED: MAGNESIUM CITRATE 300 ML BOTTLE PO PRN (17:42)
[2021-12-02] MEDS ORDERED: BENZOCAINE/MENTHOL (CHLORASEPTIC ) LOZENGE MM PRN (17:42)
[2021-12-02] MEDS ORDERED: DICYCLOMINE HCL 10 MG CAPSULE PO PRN (17:42)
[2021-12-02] MEDS ORDERED: hydrOXYzine PAMOATE 25 MG CAPSULE (FP) PO PRN (17:42)
[2021-12-02] MEDS ORDERED: ONDANSETRON *ODT* 4 MG TABLET SL PRN (17:42)
[2021-12-02] MEDS ORDERED: METHOCARBAMOL 500 MG TABLET PO PRN (17:42)
[2021-12-02] MEDS ORDERED: chlordiazePOXIDE HCL 25 MG CAPSULE PO PRN (20:06)
[2021-12-02] MEDS: chlordiazePOXIDE HCL 25 MG CAPSULE PO SCH (23:32)
[2021-12-02] MEDS: THIAMINE HCL 100 MG TABLET (FP) PO SCH (23:33)
[2021-12-03] MEDS: chlordiazePOXIDE HCL 25 MG CAPSULE PO SCH ×4 (05:29→22:12)
[2021-12-03] MEDS ORDERED: methaDONE HCL 40 MG DISPERSABLE TABLET PO SCH (09:15)
[2021-12-03] MEDS ORDERED: methaDONE HCL 40 MG DISPERSABLE TABLET ONE (09:20)
[2021-12-03] MEDS ORDERED: methaDONE HCL 10 MG TABLET ONE (09:20)
[2021-12-03] MEDS: methaDONE 40 MG, methaDONE 10 MG PO SCH (10:11)
[2021-12-03] MEDS: PRENATAL VITAMINS W/ FOLIC ACID TABLET (FP) PO SCH (10:14)
[2021-12-03] MEDS ORDERED: COLLOIDAL OATMEAL 1 BAR EACH TP PRN (13:48)
[2021-12-03 13:53] LABS: HEMOGLOBIN 11.9 GM/dL (11.7-16.9); MCH 27.5 pg (25.7-33.7); MCHC 32.2 g/dl (32.0-35.9); MEAN CELL VOLUME 85.4 fl (80-96); MEAN PLT VOLUME 10.4 fl (7.5-11.1); PLATELET COUNT 94 10^3/uL (134-434); RBC 4.33 M/mm3 (4.00-5.60); RDW 15.8 % (11.9-15.9); WHITE BLOOD COUNT 2.5 K/mm3 (4.0-10.0)
[2021-12-03 14:32] LABS: ALBUMIN 2.7 g/dl (3.4-5.0); CALCIUM 8.6 mg/dL (8.5-10.1)
[2021-12-03 14:35] LABS: CREATININE 0.9 mg/dL (0.55-1.3)
[2021-12-03 14:37] LABS: BILIRUBIN,TOTAL 0.4 mg/dL (0.2-1); TOT PROT 7.3 g/dl (6.4-8.2)
[2021-12-03] MEDS: THIAMINE HCL 100 MG TABLET (FP) PO SCH (22:11)
[2021-12-04 00:14] LABS: SARS-CoV-2 NAA Not Detected (Not Detected)
[2021-12-04] MEDS ORDERED: methaDONE HCL 40 MG DISPERSABLE TABLET ONE (04:15)
[2021-12-04] MEDS ORDERED: methaDONE HCL 10 MG TABLET ONE (04:15)
[2021-12-04] MEDS: methaDONE 40 MG, methaDONE 10 MG PO SCH (05:35)
[2021-12-04] MEDS: chlordiazePOXIDE HCL 25 MG CAPSULE PO SCH ×4 (05:35→22:36)
[2021-12-04] MEDS: PRENATAL VITAMINS W/ FOLIC ACID TABLET (FP) PO SCH (10:27)
[2021-12-04] MEDS: THIAMINE HCL 100 MG TABLET (FP) PO SCH (22:35)
[2021-12-05] MEDS ORDERED: chlordiazePOXIDE HCL 10 MG CAPSULE PO PRN
[2021-12-05] MEDS ORDERED: methaDONE HCL 40 MG DISPERSABLE TABLET ONE (04:28)
[2021-12-05] MEDS ORDERED: methaDONE HCL 10 MG TABLET ONE (04:28)
[2021-12-05] MEDS: chlordiazePOXIDE HCL 10 MG CAPSULE PO SCH ×4 (06:08→22:54)
[2021-12-05] MEDS: methaDONE 40 MG, methaDONE 10 MG PO SCH (06:08)
[2021-12-05] MEDS: PRENATAL VITAMINS W/ FOLIC ACID TABLET (FP) PO SCH (11:08)
[2021-12-05 14:10] LABS: SARS-CoV-2 NAA Not Detected (Not Detected)
[2021-12-05] MEDS: THIAMINE HCL 100 MG TABLET (FP) PO SCH (22:53)
[2021-12-06] MEDS ORDERED: methaDONE HCL 40 MG DISPERSABLE TABLET ONE (04:42)
[2021-12-06] MEDS ORDERED: methaDONE HCL 10 MG TABLET ONE (04:42)
[2021-12-06] MEDS: methaDONE 40 MG, methaDONE 10 MG PO SCH (05:20)
[2021-12-06] MEDS: chlordiazePOXIDE HCL 10 MG CAPSULE PO SCH ×2 (05:20→18:23)
[2021-12-06] MEDS: PRENATAL VITAMINS W/ FOLIC ACID TABLET (FP) PO SCH (10:15)
[2021-12-06] MEDS: THIAMINE HCL 100 MG TABLET (FP) PO SCH (22:38)
[2021-12-07] MEDS ORDERED: methaDONE HCL 10 MG TABLET ONE (04:19)
[2021-12-07] MEDS ORDERED: methaDONE HCL 40 MG DISPERSABLE TABLET ONE (04:20)
[2021-12-07] MEDS ORDERED: chlordiazePOXIDE HCL 10 MG CAPSULE PO ONE (05:00)
[2021-12-07] MEDS: methaDONE 40 MG, methaDONE 10 MG PO SCH (05:47)
[2021-12-07] MEDS: PRENATAL VITAMINS W/ FOLIC ACID TABLET (FP) PO SCH (10:32)
[2021-12-07 13:29] VITALS: BP 102/67; PULSE 62; TEMP 97
== END 2021-12-07 14:24 | disposition other institution (70) | DRG 773 ==
LOC: YASAS 15:25 → Y3N 18:41
PROVIDERS: ADMIT Allergy & Immunology; ATTEND Surgery
PROC: HZ2ZZZZ Detoxification Services for Substance Abuse Treatment (ICD-10-PCS; principal; 2021-12-02)
DX: F10.230 Alcohol dependence with withdrawal, uncomplicated (principal); F11.20 Opioid dependence, uncomplicated; F14.20 Cocaine dependence, uncomplicated; F13.20 Sedative, hypnotic or anxiolytic dependence, uncomplicated; F17.210 Nicotine dependence, cigarettes, uncomplicated; Z21 Asymptomatic human immunodeficiency virus [HIV] infection status; B18.2 Chronic viral hepatitis C; Z28.310 Unvaccinated for COVID-19
CPT/HCPCS: 36415; 80053; 85027; 86780; C9803-CS; Q0162; U0003; U0005

== ENCOUNTER 2021-12-07 16:38 | Inpatient (IN) | payer OTHER ==
[2021-12-07] MEDS ORDERED: LOPERAMIDE HCL 2 MG CAPSULE PO PRN (18:37)
[2021-12-07] MEDS ORDERED: MAGNESIUM CITRATE 300 ML BOTTLE PO PRN (18:37)
[2021-12-07] MEDS ORDERED: guaiFENesin 200 MG/10 ML 10 ML UNIT-DOSE CUPS PO PRN (18:37)
[2021-12-07] MEDS ORDERED: ACETAMINOPHEN 325 MG TABLET (FP) PO PRN (18:37)
[2021-12-07] MEDS ORDERED: MAG HYDROX/AL HYDROX/SIMETH 30 ML UNIT-DOSE CUP PO PRN (18:37)
[2021-12-07] MEDS ORDERED: MELATONIN 5 MG TABLETS PO PRN (18:37)
[2021-12-07] MEDS ORDERED: BENZOCAINE/MENTHOL (CHLORASEPTIC ) LOZENGE MM PRN (18:37)
[2021-12-07] MEDS ORDERED: P-EPHED 60MG/TRIPROLIDI 2.5MG TABLET PO PRN (18:37)
[2021-12-07] MEDS ORDERED: MAGNESIUM HYDROX 2400MG/30ML ORAL SUSPENSION 30 ML CUP PO PRN (18:37)
[2021-12-07] MEDS ORDERED: NICOTINE POLACRILEX 2 MG GUM BUC PRN (18:37)
[2021-12-07] MEDS ORDERED: IBUPROFEN 400 MG TABLET (FP) PO PRN (18:37)
[2021-12-07] MEDS ORDERED: hydrOXYzine PAMOATE 25 MG CAPSULE (FP) PO PRN (18:37)
[2021-12-07] MEDS: THIAMINE HCL 100 MG TABLET (FP) PO SCH (21:27)
[2021-12-08] MEDS ORDERED: methaDONE HCL 10 MG TABLET ONE (05:28)
[2021-12-08] MEDS ORDERED: methaDONE HCL 40 MG DISPERSABLE TABLET ONE (05:28)
[2021-12-08] MEDS ORDERED: methaDONE HCL 10 MG TABLET PO SCH (06:00)
[2021-12-08] MEDS: methaDONE 40 MG, methaDONE 10 MG PO SCH (06:12)
[2021-12-08] MEDS ORDERED: PRENATAL VITAMINS W/ FOLIC ACID TABLET (FP) PO SCH (10:00)
[2021-12-08] MEDS: THIAMINE HCL 100 MG TABLET (FP) PO SCH (21:09)
[2021-12-09] MEDS ORDERED: methaDONE HCL 10 MG TABLET ONE (03:04)
[2021-12-09] MEDS ORDERED: methaDONE HCL 40 MG DISPERSABLE TABLET ONE (03:04)
[2021-12-09] MEDS: methaDONE 40 MG, methaDONE 10 MG PO SCH (05:40)
[2021-12-09 06:56] VITALS: BP 106/67; PULSE 72; TEMP 8.4
[2021-12-09 10:07] LABS: SARS-CoV-2 NAA Not Detected (Not Detected)
== END 2021-12-09 09:52 | disposition home or self-care (01) | DRG 772 ==
LOC: YASAS 16:38 → Y3W 16:41
PROVIDERS: ADMIT Allergy & Immunology; ATTEND Psychiatry & Neurology Pain Medicine
PROC: HZ42ZZZ Group Counseling for Substance Abuse Treatment, Cognitive-Behavioral (ICD-10-PCS; principal; 2021-12-07)
DX: F11.20 Opioid dependence, uncomplicated (principal); F10.20 Alcohol dependence, uncomplicated; F13.20 Sedative, hypnotic or anxiolytic dependence, uncomplicated; F14.20 Cocaine dependence, uncomplicated; F17.210 Nicotine dependence, cigarettes, uncomplicated; Z21 Asymptomatic human immunodeficiency virus [HIV] infection status; Z86.19 Personal history of other infectious and parasitic diseases
CPT/HCPCS: C9803-CS; U0003; U0005

== ENCOUNTER 2021-12-25 13:19 | Inpatient (IN) | payer OTHER ==
[2021-12-25 14:03] VITALS: BMI 19.4
[2021-12-25] MEDS ORDERED: NALOXONE HCL 0.4 MG/ML VIAL IM PRN (16:03)
[2021-12-25] MEDS ORDERED: MAGNESIUM HYDROX 2400MG/30ML ORAL SUSPENSION 30 ML CUP PO PRN (16:03)
[2021-12-25] MEDS ORDERED: LOPERAMIDE HCL 2 MG CAPSULE PO PRN (16:03)
[2021-12-25] MEDS ORDERED: IBUPROFEN 600 MG TABLET (FP) PO PRN (16:03)
[2021-12-25] MEDS ORDERED: MAG HYDROX/AL HYDROX/SIMETH 30 ML UNIT-DOSE CUP PO PRN (16:03)
[2021-12-25] MEDS ORDERED: BISMUTH SUBSALICYLATE 524 MG/30 ML PO PRN (16:03)
[2021-12-25] MEDS ORDERED: NICOTINE 10 MG CARTRIDGE (INHALER) IH PRN (16:03)
[2021-12-25] MEDS ORDERED: BENZOCAINE/MENTHOL (CHLORASEPTIC ) LOZENGE MM PRN (16:03)
[2021-12-25] MEDS ORDERED: ACETAMINOPHEN 325 MG TABLET (FP) PO PRN ×2 (16:03)
[2021-12-25] MEDS ORDERED: IBUPROFEN 400 MG TABLET (FP) PO PRN (16:03)
[2021-12-25] MEDS ORDERED: DICYCLOMINE HCL 10 MG CAPSULE PO PRN (16:03)
[2021-12-25] MEDS ORDERED: METHOCARBAMOL 500 MG TABLET PO PRN (16:03)
[2021-12-25] MEDS ORDERED: MAGNESIUM CITRATE 300 ML BOTTLE PO PRN (16:03)
[2021-12-25] MEDS: ONDANSETRON *ODT* 4 MG TABLET SL PRN (18:12)
[2021-12-25] MEDS ORDERED: chlordiazePOXIDE HCL 25 MG CAPSULE PO PRN (18:59)
[2021-12-25] MEDS: hydrOXYzine PAMOATE 25 MG CAPSULE (FP) PO SCH ×2 (19:06→22:05)
[2021-12-25] MEDS: chlordiazePOXIDE HCL 25 MG CAPSULE PO SCH ×2 (19:06→22:04)
[2021-12-25] MEDS ORDERED: COLLOIDAL OATMEAL 1 BAR EACH TP PRN (19:13)
[2021-12-25] MEDS: THIAMINE HCL 100 MG TABLET (FP) PO SCH (22:04)
[2021-12-25] MEDS: MELATONIN 5 MG TABLETS PO SCH (22:40)
[2021-12-26] MEDS: hydrOXYzine PAMOATE 25 MG CAPSULE (FP) PO SCH ×5 (05:28→22:37)
[2021-12-26] MEDS: chlordiazePOXIDE HCL 25 MG CAPSULE PO SCH ×3 (05:28→17:34)
[2021-12-26] MEDS: PRENATAL VITAMINS W/ FOLIC ACID TABLET (FP) PO SCH (10:26)
[2021-12-26 10:54] LABS: HEMATOCRIT 32.7 % (35.4-49); HEMOGLOBIN 10.7 GM/dL (11.7-16.9); MCH 28.3 pg (25.7-33.7); MCHC 32.8 g/dl (32.0-35.9); MEAN CELL VOLUME 86.5 fl (80-96); MEAN PLT VOLUME 10.1 fl (7.5-11.1); PLATELET COUNT 133 10^3/uL (134-434); RBC 3.78 M/mm3 (4.00-5.60); RDW 17.2 % (11.9-15.9); WHITE BLOOD COUNT 2.6 K/mm3 (4.0-10.0)
[2021-12-26 11:05] LABS: CALCIUM 8.3 mg/dL (8.5-10.1)
[2021-12-26 11:06] LABS: ALBUMIN 2.6 g/dl (3.4-5.0)
[2021-12-26 11:09] LABS: TOT PROT 7.2 g/dl (6.4-8.2)
[2021-12-26 11:11] LABS: BILIRUBIN,TOTAL 0.4 mg/dL (0.2-1)
[2021-12-26] MEDS ORDERED: methaDONE HCL 40 MG DISPERSABLE TABLET PO SCH (11:30)
[2021-12-26] MEDS ORDERED: methaDONE HCL 10 MG TABLET ONE (11:30)
[2021-12-26] MEDS ORDERED: methaDONE HCL 40 MG DISPERSABLE TABLET ONE (11:30)
[2021-12-26] MEDS: methaDONE 40 MG, methaDONE 20 MG PO SCH (11:32)
[2021-12-26] MEDS: THIAMINE HCL 100 MG TABLET (FP) PO SCH (22:36)
[2021-12-26] MEDS: MELATONIN 5 MG TABLETS PO SCH (22:37)
[2021-12-27] MEDS ORDERED: methaDONE HCL 40 MG DISPERSABLE TABLET ONE (04:39)
[2021-12-27] MEDS ORDERED: methaDONE HCL 10 MG TABLET ONE (04:39)
[2021-12-27] MEDS: chlordiazePOXIDE HCL 25 MG CAPSULE PO SCH ×4 (05:00→22:19)
[2021-12-27] MEDS: methaDONE 40 MG, methaDONE 20 MG PO SCH (05:00)
[2021-12-27] MEDS: hydrOXYzine PAMOATE 25 MG CAPSULE (FP) PO SCH ×5 (05:02→22:20)
[2021-12-27] MEDS: PRENATAL VITAMINS W/ FOLIC ACID TABLET (FP) PO SCH (10:26)
[2021-12-27] MEDS: ONDANSETRON *ODT* 4 MG TABLET SL PRN (10:27)
[2021-12-27] MEDS: THIAMINE HCL 100 MG TABLET (FP) PO SCH (22:19)
[2021-12-27] MEDS: MELATONIN 5 MG TABLETS PO SCH (22:20)
[2021-12-28] MEDS ORDERED: chlordiazePOXIDE HCL 10 MG CAPSULE PO PRN
[2021-12-28] MEDS ORDERED: methaDONE HCL 10 MG TABLET ONE (04:05)
[2021-12-28] MEDS ORDERED: methaDONE HCL 40 MG DISPERSABLE TABLET ONE (04:06)
[2021-12-28] MEDS: chlordiazePOXIDE HCL 10 MG CAPSULE PO SCH ×4 (05:25→22:22)
[2021-12-28] MEDS: methaDONE 40 MG, methaDONE 20 MG PO SCH (05:25)
[2021-12-28] MEDS: hydrOXYzine PAMOATE 25 MG CAPSULE (FP) PO SCH ×4 (05:27→19:25)
[2021-12-28] MEDS: PRENATAL VITAMINS W/ FOLIC ACID TABLET (FP) PO SCH (10:33)
[2021-12-28] MEDS: THIAMINE HCL 100 MG TABLET (FP) PO SCH (22:22)
[2021-12-28] MEDS: MELATONIN 5 MG TABLETS PO SCH (22:24)
[2021-12-29] MEDS: hydrOXYzine PAMOATE 25 MG CAPSULE (FP) PO SCH ×6 (00:19→22:59)
[2021-12-29] MEDS ORDERED: methaDONE HCL 40 MG DISPERSABLE TABLET ONE (04:38)
[2021-12-29] MEDS ORDERED: methaDONE HCL 10 MG TABLET ONE (04:38)
[2021-12-29] MEDS: chlordiazePOXIDE HCL 10 MG CAPSULE PO SCH ×2 (05:03→16:29)
[2021-12-29] MEDS: methaDONE 40 MG, methaDONE 20 MG PO SCH (05:03)
[2021-12-29] MEDS: PRENATAL VITAMINS W/ FOLIC ACID TABLET (FP) PO SCH (10:24)
[2021-12-29] MEDS: THIAMINE HCL 100 MG TABLET (FP) PO SCH (22:58)
[2021-12-29] MEDS: MELATONIN 5 MG TABLETS PO SCH (22:59)
[2021-12-30] MEDS ORDERED: methaDONE HCL 10 MG TABLET ONE (04:15)
[2021-12-30] MEDS ORDERED: methaDONE HCL 40 MG DISPERSABLE TABLET ONE (04:16)
[2021-12-30] MEDS ORDERED: chlordiazePOXIDE HCL 10 MG CAPSULE PO ONE (05:00)
[2021-12-30] MEDS: hydrOXYzine PAMOATE 25 MG CAPSULE (FP) PO SCH ×2 (05:47→10:19)
[2021-12-30] MEDS: methaDONE 40 MG, methaDONE 20 MG PO SCH (05:47)
[2021-12-30 09:24] VITALS: BP 105/69; PULSE 72; TEMP 97.1
[2021-12-30] MEDS: PRENATAL VITAMINS W/ FOLIC ACID TABLET (FP) PO SCH (10:18)
== END 2021-12-30 12:48 | disposition other institution (70) | DRG 773 ==
LOC: YASAS 13:19 → UNDOADMIN 17:26 → Y6N 17:26
PROVIDERS: ADMIT Allergy & Immunology; ATTEND Surgery
PROC: HZ2ZZZZ Detoxification Services for Substance Abuse Treatment (ICD-10-PCS; principal; 2021-12-25)
DX: F10.230 Alcohol dependence with withdrawal, uncomplicated (principal); F11.20 Opioid dependence, uncomplicated; F14.20 Cocaine dependence, uncomplicated; F17.210 Nicotine dependence, cigarettes, uncomplicated; Z21 Asymptomatic human immunodeficiency virus [HIV] infection status; B18.2 Chronic viral hepatitis C; R63.4 Abnormal weight loss; Z28.310 Unvaccinated for COVID-19
CPT/HCPCS: 36415; 80053; 85027; 86780; C9803-CS; Q0162; U0003; U0005

== ENCOUNTER 2021-12-30 12:55 | Inpatient (IN) | payer OTHER ==
[2021-12-30] MEDS ORDERED: ACETAMINOPHEN 325 MG TABLET (FP) PO PRN (15:53)
[2021-12-30] MEDS ORDERED: BENZOCAINE/MENTHOL (CHLORASEPTIC ) LOZENGE MM PRN (15:53)
[2021-12-30] MEDS ORDERED: MAGNESIUM CITRATE 300 ML BOTTLE PO PRN (15:53)
[2021-12-30] MEDS ORDERED: IBUPROFEN 400 MG TABLET (FP) PO PRN (15:53)
[2021-12-30] MEDS ORDERED: P-EPHED 60MG/TRIPROLIDI 2.5MG TABLET PO PRN (15:53)
[2021-12-30] MEDS ORDERED: MAGNESIUM HYDROX 2400MG/30ML ORAL SUSPENSION 30 ML CUP PO PRN (15:53)
[2021-12-30] MEDS ORDERED: NICOTINE 10 MG CARTRIDGE (INHALER) IH PRN (15:53)
[2021-12-30] MEDS ORDERED: LOPERAMIDE HCL 2 MG CAPSULE PO PRN (15:53)
[2021-12-30] MEDS ORDERED: MAG HYDROX/AL HYDROX/SIMETH 30 ML UNIT-DOSE CUP PO PRN (15:53)
[2021-12-30] MEDS ORDERED: hydrOXYzine PAMOATE 25 MG CAPSULE (FP) PO PRN (15:53)
[2021-12-30] MEDS ORDERED: guaiFENesin 200 MG/10 ML 10 ML UNIT-DOSE CUPS PO PRN (15:53)
[2021-12-30] MEDS: MELATONIN 5 MG TABLETS PO SCH (22:37)
[2021-12-30] MEDS: THIAMINE HCL 100 MG TABLET (FP) PO SCH (22:38)
[2021-12-31] MEDS ORDERED: methaDONE HCL 10 MG TABLET PO SCH (06:00)
[2021-12-31] MEDS: methaDONE HCL 10 MG TABLET PO SCH (06:16)
[2021-12-31] MEDS: PRENATAL VITAMINS W/ FOLIC ACID TABLET (FP) PO SCH (10:36)
[2021-12-31] MEDS: NICOTINE 7 MG/24 HOURS TOPICAL PATCH TD SCH (10:36)
[2021-12-31] MEDS: COLLOIDAL OATMEAL 1 BAR EACH TP PRN (13:57)
[2021-12-31] MEDS: THIAMINE HCL 100 MG TABLET (FP) PO SCH (21:48)
[2021-12-31] MEDS: MELATONIN 5 MG TABLETS PO SCH (21:48)
[2022-01-01] MEDS: methaDONE HCL 10 MG TABLET PO SCH (06:00)
[2022-01-01] MEDS: PRENATAL VITAMINS W/ FOLIC ACID TABLET (FP) PO SCH (10:24)
[2022-01-01] MEDS: NICOTINE 7 MG/24 HOURS TOPICAL PATCH TD SCH (10:37)
[2022-01-01] MEDS: TOLNAFTATE 1% CREAM 15 GM TUBE TP SCH ×2 (11:45→23:35)
[2022-01-01] MEDS: MELATONIN 5 MG TABLETS PO SCH (23:35)
[2022-01-01] MEDS: THIAMINE HCL 100 MG TABLET (FP) PO SCH (23:36)
[2022-01-02] MEDS: methaDONE HCL 10 MG TABLET PO SCH (06:08)
[2022-01-02] MEDS: TOLNAFTATE 1% CREAM 15 GM TUBE TP SCH ×2 (10:18→21:45)
[2022-01-02] MEDS: NICOTINE 7 MG/24 HOURS TOPICAL PATCH TD SCH (10:18)
[2022-01-02] MEDS: PRENATAL VITAMINS W/ FOLIC ACID TABLET (FP) PO SCH (10:19)
[2022-01-02] MEDS: THIAMINE HCL 100 MG TABLET (FP) PO SCH (21:45)
[2022-01-02] MEDS: MELATONIN 5 MG TABLETS PO SCH (21:45)
[2022-01-03] MEDS ORDERED: methaDONE HCL 10 MG TABLET ONE (05:34)
[2022-01-03] MEDS ORDERED: methaDONE HCL 40 MG DISPERSABLE TABLET ONE (05:34)
[2022-01-03] MEDS: methaDONE 40 MG, methaDONE 20 MG PO SCH (05:42)
[2022-01-03] MEDS: NICOTINE 7 MG/24 HOURS TOPICAL PATCH TD SCH (09:58)
[2022-01-03] MEDS: PRENATAL VITAMINS W/ FOLIC ACID TABLET (FP) PO SCH (09:58)
[2022-01-03] MEDS: TOLNAFTATE 1% CREAM 15 GM TUBE TP SCH ×2 (11:00→22:06)
[2022-01-03] MEDS: MELATONIN 5 MG TABLETS PO SCH (22:03)
[2022-01-03] MEDS: THIAMINE HCL 100 MG TABLET (FP) PO SCH (22:06)
[2022-01-04] MEDS ORDERED: methaDONE HCL 10 MG TABLET ONE (03:20)
[2022-01-04] MEDS ORDERED: methaDONE HCL 40 MG DISPERSABLE TABLET ONE (03:20)
[2022-01-04] MEDS: methaDONE 40 MG, methaDONE 20 MG PO SCH (06:03)
[2022-01-04] MEDS: PRENATAL VITAMINS W/ FOLIC ACID TABLET (FP) PO SCH (10:53)
[2022-01-04] MEDS: TOLNAFTATE 1% CREAM 15 GM TUBE TP SCH ×2 (10:53→22:14)
[2022-01-04] MEDS: NICOTINE 7 MG/24 HOURS TOPICAL PATCH TD SCH (10:53)
[2022-01-04] MEDS: MELATONIN 5 MG TABLETS PO SCH (22:14)
[2022-01-04] MEDS: THIAMINE HCL 100 MG TABLET (FP) PO SCH (22:14)
[2022-01-05] MEDS ORDERED: methaDONE HCL 40 MG DISPERSABLE TABLET ONE (05:19)
[2022-01-05] MEDS ORDERED: methaDONE HCL 10 MG TABLET ONE (05:19)
[2022-01-05] MEDS: methaDONE 40 MG, methaDONE 20 MG PO SCH (05:45)
[2022-01-05] MEDS: TOLNAFTATE 1% CREAM 15 GM TUBE TP SCH ×2 (10:41→23:09)
[2022-01-05] MEDS: NICOTINE 7 MG/24 HOURS TOPICAL PATCH TD SCH (10:41)
[2022-01-05] MEDS: THIAMINE HCL 100 MG TABLET (FP) PO SCH ×2 (14:21→23:09)
[2022-01-05] MEDS: MELATONIN 5 MG TABLETS PO SCH (23:09)
[2022-01-06] MEDS ORDERED: methaDONE HCL 10 MG TABLET ONE (04:03)
[2022-01-06] MEDS ORDERED: methaDONE HCL 40 MG DISPERSABLE TABLET ONE (04:03)
[2022-01-06] MEDS: methaDONE 40 MG, methaDONE 20 MG PO SCH (06:01)
[2022-01-06] MEDS: THIAMINE HCL 100 MG TABLET (FP) PO SCH ×3 (06:01→22:18)
[2022-01-06] MEDS: TOLNAFTATE 1% CREAM 15 GM TUBE TP SCH ×2 (10:17→22:18)
[2022-01-06] MEDS: COLLOIDAL OATMEAL 1 BAR EACH TP PRN (10:18)
[2022-01-06] MEDS: NICOTINE 7 MG/24 HOURS TOPICAL PATCH TD SCH (10:48)
[2022-01-06] MEDS: MELATONIN 5 MG TABLETS PO SCH (22:18)
[2022-01-07] MEDS ORDERED: methaDONE HCL 40 MG DISPERSABLE TABLET ONE (04:52)
[2022-01-07] MEDS ORDERED: methaDONE HCL 10 MG TABLET ONE (04:52)
[2022-01-07] MEDS: methaDONE 40 MG, methaDONE 20 MG PO SCH (05:28)
[2022-01-07] MEDS: THIAMINE HCL 100 MG TABLET (FP) PO SCH ×3 (05:29→21:32)
[2022-01-07] MEDS: TOLNAFTATE 1% CREAM 15 GM TUBE TP SCH ×2 (10:47→21:32)
[2022-01-07] MEDS: NICOTINE 7 MG/24 HOURS TOPICAL PATCH TD SCH (10:47)
[2022-01-07] MEDS: MELATONIN 5 MG TABLETS PO SCH (21:32)
[2022-01-08] MEDS ORDERED: methaDONE HCL 10 MG TABLET ONE (05:42)
[2022-01-08] MEDS ORDERED: methaDONE HCL 40 MG DISPERSABLE TABLET ONE (05:43)
[2022-01-08] MEDS: methaDONE 40 MG, methaDONE 20 MG PO SCH (06:02)
[2022-01-08] MEDS: THIAMINE HCL 100 MG TABLET (FP) PO SCH (06:02)
[2022-01-08 07:57] VITALS: BP 107/72; PULSE 73; TEMP 98
== END 2022-01-08 09:53 | disposition home or self-care (01) | DRG 772 ==
LOC: YASAS 12:55 → Y3W 12:56
PROVIDERS: ADMIT Allergy & Immunology; ATTEND Psychiatry & Neurology Pain Medicine
PROC: HZ42ZZZ Group Counseling for Substance Abuse Treatment, Cognitive-Behavioral (ICD-10-PCS; principal; 2021-12-30)
DX: F10.20 Alcohol dependence, uncomplicated (principal); F11.20 Opioid dependence, uncomplicated; F14.20 Cocaine dependence, uncomplicated; F17.210 Nicotine dependence, cigarettes, uncomplicated; Z21 Asymptomatic human immunodeficiency virus [HIV] infection status; B19.20 Unspecified viral hepatitis C without hepatic coma